=== PATIENT | female | born 2000 | race Caucasian/White ===

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

== ENCOUNTER 2018-05-15 14:21 | Inpatient (IN) | payer BC, OTHER ==
[2018-05-15] MEDS ORDERED: SODIUM CHLORIDE 0.9% 1,000 ML IV STA (16:08)
[2018-05-15] MEDS ORDERED: ACETAMINOPHEN IV (For NPO) 1,000 MG in EMPTY BAG 1 BAG IVPB ONE (16:23)
--- NOTE | 2018-05-15 16:36 | ED ---
General Adult HPI - General Chief complaint: Abdominal Pain Stated complaint: 16 weeks , poss kidney stone Time Seen by Provider: 05/15/18 16:07 Source: patient, RN notes reviewed, old records reviewed Mode of arrival: ambulatory Limitations: no limitations - History of Present Illness Initial comments: 17-year-old female , approximately 16 weeks presenting for evaluation of right flank pain and right lower quadrant abdominal pain. Patient has had symptoms for 4 days. She is currently being treated with Keflex for urinary tract infection. She is otherwise healthy. She's had some nausea and vomiting as well as subjective fever and chills at home. Denies URI symptoms. Denies upper abdominal pain. No consultations with this . No vaginal bleeding or vaginal discharge. - Related Data Home Medications Medication Instructions Recorded Confirmed Cephalexin [Keflex] 500 mg PO TID 05/15/18 05/15/18 Tvx-Qlng-Gwxse Acid 1 cap PO DAILY 05/15/18 05/15/18 [-U Capsule (formulary)] Allergies Allergy/AdvReac Type Severity Reaction Status Date / Time No Known Allergies Allergy Verified 05/15/18 17:03 Review of Systems ROS Statement: Those systems with pertinent positive or pertinent negative responses have been documented in the HPI. ROS Other: All systems not noted in ROS Statement are negative. Past Medical History Past Medical History: No Reported History History of Any Multi-Drug Resistant Organisms: None Reported Past Surgical History: No Surgical Hx Reported Past Psychological History: No Psychological Hx Reported Smoking Status: Current every day smoker Past Alcohol Use History: None Reported Past Drug Use History: None Reported General Exam Limitations: no limitations General appearance: alert, in no apparent distress Head exam: Present: atraumatic, normocephalic Eye exam: Present: normal appearance, PERRL ENT exam: Present: normal exam Neck exam: Present: normal inspection. Absent: tenderness, meningismus Respiratory exam: Present: normal lung sounds bilaterally. Absent: respiratory distress, wheezes Cardiovascular Exam: Present: normal rhythm, tachycardia GI/Abdominal exam: Present: soft, tenderness (No uterine tenderness, mild right lower quadrant tenderness to palpation). Absent: distended Extremities exam: Present: normal inspection, normal capillary refill Back exam: Present: normal inspection, CVA tenderness (R) (severe) Neurological exam: Present: alert, oriented X3 Psychiatric exam: Present: normal affect, normal mood Skin exam: Present: warm, dry, intact. Absent: cyanosis, diaphoretic Course Vital Signs 05/15/18 05/15/18 05/15/18 14:50 17:01 18:41 Temperature 98.7 F 98 F Pulse Rate 110 H 106 H 85 Respiratory 18 20 18 Rate Blood Pressure 108/72 109/58 90/44 O2 Sat by Pulse 100 99 98 Oximetry Medical Decision Making - Medical Decision Making 17-year-old female presenting with fever, right flank pain, right lower quadrant abdominal pain for the past 4 days. Patient was sent over by Dr. Brown for evaluation, concern for pyelonephritis. Patient is afebrile, mildly tachycardic on initial presentation. She has both right CVA tenderness as well as right lower quadrant abdominal tenderness. Exam consistent with pyelonephritis; however there is concern for appendicitis. Ultrasound is obtained and does show right hydronephrosis which may be secondary to , no obstructing renal calculus, small renal calculus. Patient has visualized appendix on ultrasound which is not inflamed, no signs of appendicitis. heart tones on ultrasound are 176, came process. Patient has elevated white blood cell count 13.6, hemoglobin 9.9, potassium is 3.3-6 replaced in the emergency department. Urinalysis is consistent with pyelonephritis and urinary tract infection. Greater than 160 red cells, positive nitrate, positive bacteria. Urine culture and blood culture are pending. Patient is started on ceftriaxone. Case discussed with Dr. Brown will admit. - Lab Data Result diagrams: 05/15/18 16:47 05/15/18 16:47 Lab Results 05/15/18 05/15/18 05/15/18 Range/Units 16:47 16:47 16:47 WBC 14.6 H (4.0-11.0) k/uL RBC 3.38 L (3.80-5.40) m/uL Hgb 9.9 L (11.4-16.0) gm/dL Hct 28.8 L (34.0-46.0) % MCV 85.0 (80.0-100.0) fL MCH 29.3 (25.0-35.0) pg MCHC 34.4 (31.0-37.0) g/dL RDW 13.6 (11.5-15.5) % Plt Count 280 (150-450) k/uL Neutrophils % 76 % Lymphocytes % 12 % Monocytes % 8 % Eosinophils % 1 % Basophils % 1 % Neutrophils # 11.1 H (1.3-7.7) k/uL Lymphocytes # 1.7 (1.0-4.8) k/uL Monocytes # 1.1 H (0-1.0) k/uL Eosinophils # 0.1 (0-0.7) k/uL Basophils # 0.1 (0-0.2) k/uL Sodium 134 L (137-145) mmol/L Potassium 3.3 L (3.5-5.1) mmol/L Chloride 99 (98-107) mmol/L Carbon Dioxide 25 (22-30) mmol/L Anion Gap 10 mmol/L BUN 6 L (7-17) mg/dL Creatinine 0.54 (0.52-1.04) mg/dL Est GFR (CKD-EPI)AfAm >90 (>60 ml/min/1.73 sqM) Est GFR (CKD-EPI)NonAf >90 (>60 ml/min/1.73 sqM) Glucose 90 (74-99) mg/dL Plasma Lactic Acid Tyler (0.7-2.0) mmol/L Calcium 9.0 (8.4-10.2) mg/dL Total Bilirubin 0.6 (0.2-1.3) mg/dL AST 15 (14-36) U/L ALT 27 (9-52) U/L Alkaline Phosphatase 107 (38-126) U/L Total Protein 6.2 L (6.3-8.2) g/dL Albumin 3.1 L (3.5-5.0) g/dL Amylase <30 L (30-110) U/L Lipase 38 (23-300) U/L Urine Color Yellow Urine Appearance Cloudy H (Clear) Urine pH 6.0 (5.0-8.0) Ur Specific [place] 1.007 (1.001-1.035) Urine Protein 1+ H (Negative) Urine Glucose (UA) Negative (Negative) Urine Ketones Negative (Negative) Urine Blood Trace H (Negative) Urine Nitrite Positive H (Negative) Urine Bilirubin Negative (Negative) Urine Urobilinogen <2.0 (<2.0) mg/dL Ur Leukocyte Esterase Large H (Negative) Urine RBC 19 H (0-5) /hpf Urine WBC 160 H (0-5) /hpf Urine WBC Clumps Many H (None) /hpf Ur Squamous Epith Cells <1 (0-4) /hpf Urine Bacteria Few H (None) /hpf 05/15/18 Range/Units 16:47 WBC (4.0-11.0) k/uL RBC (3.80-5.40) m/uL Hgb (11.4-16.0) gm/dL Hct (34.0-46.0) % MCV (80.0-100.0) fL MCH (25.0-35.0) pg MCHC (31.0-37.0) g/dL RDW (11.5-15.5) % Plt Count (150-450) k/uL Neutrophils % % Lymphocytes % % Monocytes % % Eosinophils % % Basophils % % Neutrophils # (1.3-7.7) k/uL Lymphocytes # (1.0-4.8) k/uL Monocytes # (0-1.0) k/uL Eosinophils # (0-0.7) k/uL Basophils # (0-0.2) k/uL Sodium (137-145) mmol/L Potassium (3.5-5.1) mmol/L Chloride (98-107) mmol/L Carbon Dioxide (22-30) mmol/L Anion Gap mmol/L BUN (7-17) mg/dL Creatinine (0.52-1.04) mg/dL Est GFR (CKD-EPI)AfAm (>60 ml/min/1.73 sqM) Est GFR (CKD-EPI)NonAf (>60 ml/min/1.73 sqM) Glucose (74-99) mg/dL Plasma Lactic Acid Tyler 1.0 (0.7-2.0) mmol/L Calcium (8.4-10.2) mg/dL Total Bilirubin (0.2-1.3) mg/dL AST (14-36) U/L ALT (9-52) U/L Alkaline Phosphatase (38-126) U/L Total Protein (6.3-8.2) g/dL Albumin (3.5-5.0) g/dL Amylase (30-110) U/L Lipase (23-300) U/L Urine Color Urine Appearance (Clear) Urine pH (5.0-8.0) Ur Specific [place] (1.001-1.035) Urine Protein (Negative) Urine Glucose (UA) (Negative) Urine Ketones (Negative) Urine Blood (Negative) Urine Nitrite (Negative) Urine Bilirubin (Negative) Urine Urobilinogen (<2.0) mg/dL Ur Leukocyte Esterase (Negative) Urine RBC (0-5) /hpf Urine WBC (0-5) /hpf Urine WBC Clumps (None) /hpf Ur Squamous Epith Cells (0-4) /hpf Urine Bacteria (None) /hpf Disposition Clinical Impression: Pyelonephritis, Pyelonephritis affecting in second trimester Disposition: ADMITTED IP TO THIS [facility] Condition: Stable Is patient prescribed a controlled substance at d/c from ED?: No Referrals: None,Stated [Primary Care Provider] - 1-2 days Decision to Admit Reason: Admit from EC Decision Date: 05/15/18 Decision Time: 18:40
[2018-05-15 17:42] LABS: ALT 27 U/L (9-52); AST 15 U/L (14-36); Albumin 3.1 g/dL (3.5-5.0); Alkaline Phosphatase 107 U/L (38-126); Amylase <30 U/L (30-110); Anion Gap 10 mmol/L; Blood Urea Nitrogen 6 mg/dL (7-17); Carbon Dioxide 25 mmol/L (22-30); Chloride 99 mmol/L (98-107); Glucose 90 mg/dL (74-99); Lipase 38 U/L (23-300); Potassium 3.3 mmol/L (3.5-5.1); Sodium 134 mmol/L (137-145); Total Bilirubin 0.6 mg/dL (0.2-1.3); Total Protein 6.2 g/dL (6.3-8.2)
[2018-05-15] MEDS ORDERED: POTASSIUM CHLORIDE 20 MEQ in WATER FOR INJECTION 1 100ML.BAG IVPB STA (18:00)
[2018-05-15 18:03] LABS: Basophils # (A) 0.1 k/uL (0-0.2); Basophils % (A) 1 %; Eosinophils # (A) 0.1 k/uL (0-0.7); Eosinophils % (A) 1 %; HCT 28.8 % (34.0-46.0); HGB 9.9 gm/dL (11.4-16.0); Lymphocytes # (A) 1.7 k/uL (1.0-4.8); Lymphocytes % (A) 12 %; MCH 29.3 pg (25.0-35.0); MCHC 34.4 g/dL (31.0-37.0); Mean Platelet Volume 6.8; Monocytes # (A) 1.1 k/uL (0-1.0); Monocytes % (A) 8 %; Neutrophils # (A) 11.1 k/uL (1.3-7.7); Neutrophils % (A) 76 %; Platelet Count 280 k/uL (150-450); RBC 3.38 m/uL (3.80-5.40); RDW 13.6 % (11.5-15.5); WBC 14.6 k/uL (4.0-11.0)
[2018-05-15 18:10] LABS: Appearance,Urine Cloudy (Clear); Bacteria,Urine Few /hpf; Bilirubin,Urine Negative (Negative); Blood,Urine Trace (Negative); Color,Urine Yellow; Glucose,Urine (UA) Negative (Negative); Ketones,Urine Negative (Negative); Leukocyte Esterase,Urine Large (Negative); Nitrite,Urine Positive (Negative); Protein,Urine 1+ (Negative); RBC,Urine 19 /hpf (0-5); Specific Gravity,Urine 1.007 (1.001-1.035); Squamous Epithelial Cell,Urine <1 /hpf (0-4); Urobilinogen,Urine <2.0 mg/dL (<2.0); WBC,Urine 160 /hpf (0-5)
--- NOTE | 2018-05-15 18:51 | US ---
EXAMINATION TYPE: US abd limited kidneys/bladder DATE OF EXAM: 05/15/2018 COMPARISON: NONE CLINICAL HISTORY: Pain. RLQ pain x 2 days, Rt flank pain x 4 days, constipation x 1 week, fever, head ache and cough, 16 weeks ; UTI x 2 since March; assess kidneys and gallbladder per EC physi ronit EXAM MEASUREMENTS: Liver Length: 17.0 cm Gallbladder Wall: 0.2 cm CBD: 0.2 cm Right Kidney: 10.8 x 6.1 x 4.4 cm Left Kidney: 10.9 x 5.1 x 4.3 cm Post Void Volume: 5.3ml Pancreas: wnl Liver: wnl Gallbladder: wnl CBD: wnl Right Kidney: mild hydronephrosis is noted post void; mid pole hyperechoic very small calcification seen = 0.2 x 0.3 x 0.2cm Left Kidney: wnl Bladder: wnl, see Appendix US Bilateral Jets Seen no Normal Post Void Residual (normal less than 50ml) yes IMPRESSION: There is mild right-sided hydronephrosis. It is not clear if this is hydronephrosis of pr egnancy. Small right renal calculus. No gallstones or dilated ducts. Urinary bladder was not well michael luated.
--- NOTE | 2018-05-15 18:53 | US ---
EXAMINATION TYPE: US OB limited DATE OF EXAM: 05/15/2018 COMPARISON: NONE CLINICAL HISTORY: Pain. RLQ pain x 2 days, Rt flank pain x 4 days, constipation x 1 week, fever, head ache, cough; UTI x 2 since March EXAM PERFORMED: Transabdominal (TA) for Placenta and heart rate per EC physician. GESTATIONAL AGE / DATING Physician Established: (16 weeks/3 days) EDC: Dates by Current Scan: No growth performed on today?s study per ordering EC physician SURVEY PLACENTA: Anterior PREVIA: No Previa Ultrasound evidence of abruption? No CIPRIANO: 13.7 cm Normal Ultrasound evidence of premature rupture of membranes? no CERVICAL LENGTH (transabdominal: norm > 3.0cm): 3.03 cm; small amount of free fluid is seen in cul d e sac = 1.7 x 4.8 x 1.0 x 0.523 = 4.3ml and wnl. Ultrasound evidence of cervical incompetence? no PRESENTATION: Vertex LIE: Longitudinal HEART RATE: 176 bpm RHYTHM: Normal Single, live IUP, [id number]; no evidence of placental abruption. IMPRESSION: No complicating process seen. Tiny amount of free fluid in the cul-de-sac of uncertain s ignificance. Normal amniotic fluid volume.
--- NOTE | 2018-05-15 18:54 | US ---
EXAMINATION TYPE: US abdomen APPY DATE OF EXAM: 05/15/2018 COMPARISON: NONE CLINICAL HISTORY: pain. RLQ pain x 2 days, RT flank pain x 4 days, 16 weeks , constipation x 1 week, fever, headache, and cough, UTI since March APPENDIX AP Diameter (normal < 6mm): 4.1 mm Measured outer wall to outer wall. Is the appendix seen in its entirety from the proximal cecum to distal end: no Is the appendix compressible: yes Does the appendix wall appear hypervascular: no Is an appendicolith present: no Is there inflammatory changes or free fluid present: no Bladder was assessed and reported in ABD/Renal and Bladder US, then patient was asked to void to asse ss appendix area. IMPRESSION: No sign of appendicitis. No free fluid seen in the right lower quadrant.
[2018-05-15] MEDS ORDERED: NALOXONE 0.4 MG/ML 1 ML VIAL IV PRN (19:04)
[2018-05-15] MEDS ORDERED: 0.9% NACL WITH KCL 20 MEQ/L 1,000 ML IV SCH (20:00)
[2018-05-15 20:36] VITALS: BMI 15.7
[2018-05-15] MEDS: LACTATED RINGERS 1,000 ML IV SCH (21:51)
[2018-05-16] MEDS: Acetaminophen-Codeine 300-30mg TAB PO PRN ×3 (02:34→18:23)
[2018-05-16] MEDS: LACTATED RINGERS 1,000 ML IV SCH ×3 (05:13→20:51)
[2018-05-16 07:04] LABS: Basophils % (A) 0 %; Eosinophils # (A) 0.1 k/uL (0-0.7); Eosinophils % (A) 1 %; HCT 25.6 % (34.0-46.0); Hypochromasia Slight; Lymphocytes # (A) 1.7 k/uL (1.0-4.8); Lymphocytes % (A) 17 %; MCH 29.8 pg (25.0-35.0); Mean Platelet Volume 6.4; Monocytes # (A) 0.5 k/uL (0-1.0); Monocytes % (A) 5 %; Neutrophils # (A) 7.5 k/uL (1.3-7.7); Neutrophils % (A) 74 %; Platelet Count 257 k/uL (150-450); RBC 2.83 m/uL (3.80-5.40); WBC 10.1 k/uL (4.0-11.0)
[2018-05-16 07:18] LABS: HGB 8.4 gm/dL (11.4-16.0); MCV 90.4 fL (80.0-100.0)
--- NOTE | 2018-05-16 08:53 | P.HPOB ---
History of Present Illness H&P Date: 05/16/18 Chief Complaint: Right flank pain, fever This is a 17-year-old white female 1 para 0 EDC 10/27/2018 at 16-3/7 weeks' gestation. Patient presented to the office today with a complaint of fever at home of 103, and severe right flank pain that has increased in the past 3 days. She was noted to have an uncomplicated urinary tract infection 3 days ago, and started on Keflex 500 mg 3 times a day. Patient states her pain has been increasing over the weekend. She denies nausea vomiting. No shakes or chills. No hematuria. No movement to date. Past medical history is essentially negative. Past surgical history is negative. Social history patient is a tobacco smoker for 1 year. She lives at home with her mom. She denies alcohol or drug use. She is unemployed. ALLERGIES none known. Current medications Keflex 500 mg 3 times a day, vitamin daily. Obstetric history blood type A+, rubella status nonimmune. VDRL testing, hepatitis B surface antigen, HIV testing, gonorrhea and chlamydia cultures all negative. Thyroid function studies within normal limits. Urine culture as noted growing group B streptococcus. On exam this is a pleasant young female, 5 foot 5 inches, 92 pounds, initial pulse 110, pulse this morning 90. Blood pressure 108/50. The chest is clear in all liang. Cardiac exam reveals regular rate and rhythm. Abdomen is soft, mild tenderness in the right lower quadrant. CVA tenderness yesterday in the office was 10 out of 10, 2 out of 10 this morning. heart rate 150. Extremities negative for edema. Admitting labs include UA with bacteria, 160 white cells. Hemoglobin 9.9, WBC is 14.6. Morning CBC pending. Impression: 16-4/7 weeks intrauterine , pyelonephritis. Ultrasound of the kidneys also showing a small calculus in the right ureter. Great improvement noted this morning after ceftriaxone 1 g, and ofirmev intravenously. Plan: Patient may shower. Regular diet. We will continue hospitalization for an additional 24 hours to receive another gram of second gram of ceftriaxone. Continue IV hydration. Likely discharge home tomorrow. Review of Systems Constitutional: Reports as per HPI Past Medical History Past Medical History: No Reported History History of Any Multi-Drug Resistant Organisms: None Reported Past Surgical History: No Surgical Hx Reported Past Anesthesia/Blood Transfusion Reactions: No Reported Reaction Past Psychological History: No Psychological Hx Reported Smoking Status: Current every day smoker Past Alcohol Use History: None Reported Past Drug Use History: None Reported - Past Family History Mother Family Medical History: No Reported History Medications and Allergies Home Medications Medication Instructions Recorded Confirmed Type Cephalexin [Keflex] 500 mg PO TID 05/15/18 05/15/18 History Khp-Jwom-Ewaby Acid 1 cap PO DAILY 05/15/18 05/15/18 History [-U Capsule (formulary)] Allergies Allergy/AdvReac Type Severity Reaction Status Date / Time No Known Allergies Allergy Verified 05/15/18 17:03 Exam Vital Signs Temp Pulse Pulse Resp BP BP Pulse Ox 05/16/18 05:17 98.1 F 82 16 82/40 98 05/16/18 00:30 98.8 F 80 16 89/42 98 05/15/18 20:27 96.7 F L 83 16 101/52 05/15/18 20:12 97.8 F 86 18 98/57 98 05/15/18 18:41 98 F 85 18 90/44 98 05/15/18 17:01 106 H 20 109/58 99 05/15/18 14:50 98.7 F 110 H 18 108/72 100 Intake and Output 05/15/18 05/16/18 05/16/18 22:59 06:59 14:59 Output Total 600 Balance -600 Output: Urine 600 Other: # Voids 1 See dictation under HPI please Results Result Diagrams: 05/16/18 06:45 05/15/18 16:47 Abnormal Lab Results - Last 24 Hours (Table) 05/15/18 05/15/18 05/15/18 Range/Units 16:47 16:47 16:47 WBC 14.6 H (4.0-11.0) k/uL RBC 3.38 L (3.80-5.40) m/uL Hgb 9.9 L (11.4-16.0) gm/dL Hct 28.8 L (34.0-46.0) % Neutrophils # 11.1 H (1.3-7.7) k/uL Monocytes # 1.1 H (0-1.0) k/uL Sodium 134 L (137-145) mmol/L Potassium 3.3 L (3.5-5.1) mmol/L BUN 6 L (7-17) mg/dL Total Protein 6.2 L (6.3-8.2) g/dL Albumin 3.1 L (3.5-5.0) g/dL Amylase <30 L (30-110) U/L Urine Appearance Cloudy H (Clear) Urine Protein 1+ H (Negative) Urine Blood Trace H (Negative) Urine Nitrite Positive H (Negative) Ur Leukocyte Esterase Large H (Negative) Urine RBC 19 H (0-5) /hpf Urine WBC 160 H (0-5) /hpf Urine WBC Clumps Many H (None) /hpf Urine Bacteria Few H (None) /hpf 05/16/18 Range/Units 06:45 WBC (4.0-11.0) k/uL RBC 2.83 L (3.80-5.40) m/uL Hgb 8.4 L D (11.4-16.0) gm/dL Hct 25.6 L (34.0-46.0) % Neutrophils # (1.3-7.7) k/uL Monocytes # (0-1.0) k/uL Sodium (137-145) mmol/L Potassium (3.5-5.1) mmol/L BUN (7-17) mg/dL Total Protein (6.3-8.2) g/dL Albumin (3.5-5.0) g/dL Amylase (30-110) U/L Urine Appearance (Clear) Urine Protein (Negative) Urine Blood (Negative) Urine Nitrite (Negative) Ur Leukocyte Esterase (Negative) Urine RBC (0-5) /hpf Urine WBC (0-5) /hpf Urine WBC Clumps (None) /hpf Urine Bacteria (None) /hpf Microbiology - Last 24 Hours (Table) 05/15/18 16:47 Urine Culture - Preliminary Urine,Voided Assessment and Plan Assessment: 16-4/7 weeks intrauterine , right pyelonephritis with complicating small renal calculus. Improvement noted with antibiotics and ofirmev as well as hydration. Plan: Continue hospitalization for increased fluid hydration and another dose of Ceftriaxone. If clinical improvement continues, likely discharge home tomorrow. Time with Patient: Greater than 30
[2018-05-17] MEDS: Acetaminophen-Codeine 300-30mg TAB PO PRN (02:14)
[2018-05-17] MEDS ORDERED: ACETAMINOPHEN TAB 500 MG TAB PO PRN (07:22)
--- NOTE | 2018-05-17 07:22 | P.DS ---
Providers Date of admission: 05/15/18 19:15 Expected date of discharge: 05/17/18 Attending physician: Karime Brown Primary care physician: Stated None Hospital Course: This is a 17-year-old white female 1 para 0 EDC 09/26/2018 at 16-5/7 weeks' gestation. Patient presented 2 days ago from the office to the emergency room with right pyelonephritis. She had an admitting white count 14.6 , stated she had a fever of 103 at home. She was known to have a urinary tract infection and started on Keflex 3 days prior, however stated the pain increased in intensity. Please see admitting H&P for details. Patient was started on Rocephin 1 g to 24 hours she rapidly defervesced. Repeat white count 10.1. This morning patient states her pain has resolved. It is notable that an ultrasound of the kidneys also revealed a small stone in the right ureter. Patient this morning is without complaints. She is being discharged home in good condition. She will follow-up in the office with me in 1 week. She will receive her last dose of Rocephin prior to discharge home today. Blood cultures have been negative, urine cultures showing gram-negative bacilli. She will continue taking her Keflex 500 mg twice daily for an additional week. Call with any fevers shakes or chills, recurrence of right flank pain, or indeed with any concerns. Patient Condition at Discharge: Good Plan - Discharge Summary Discharge Rx Participant: No New Discharge Prescriptions: No Action Hve-Gvei-Blpgw Acid [-U Capsule (formulary)] 1 cap PO DAILY Cephalexin [Keflex] 500 mg PO TID Discharge Medication List Cephalexin [Keflex] 500 mg PO TID 05/15/18 [History] Cjd-Ougt-Lcdlm Acid [-U Capsule (formulary)] 1 cap PO DAILY [History] Follow up Appointment(s)/Referral(s): None,Stated [Primary Care Provider] - 1 Week
[2018-05-17] MEDS: LACTATED RINGERS 1,000 ML IV SCH ×2 (09:46→14:03)
[2018-05-17 09:53] VITALS: BP 86/47; PULSE 71; RESP 16; TEMP 97.7
== END 2018-05-17 15:53 | disposition home or self-care (01) | DRG 832 ==
LOC: EC 14:21 → 4FBP 19:15
PROVIDERS: ADMIT Obstetrics & Gynecology; ATTEND Obstetrics & Gynecology
DX: O23.02 Infections of kidney in pregnancy, second trimester (principal); N13.6 Pyonephrosis; O99.89 Other specified diseases and conditions complicating pregnancy, childbirth and the puerperium; O99.332 Smoking (tobacco) complicating pregnancy, second trimester; F17.200 Nicotine dependence, unspecified, uncomplicated; Z3A.16 16 weeks gestation of pregnancy
CPT/HCPCS: 36415; 76705; 76770; 76815; 80053; 81001; 82150; 83605; 83690; 85025; 87040; 87077; 87086; 87186; 96361; 96365; 96366; 96367; 96368; 99285

== ENCOUNTER 2018-11-01 05:53 | Inpatient (IN) | payer OTHER ==
[2018-11-01] MEDS ORDERED: TERBUTALINE 1 MG/ML VIAL SQ PRN (06:15)
[2018-11-01] MEDS ORDERED: METHYLERGONOVINE 0.2 MG/ML 1 ML AMP IM PRN (06:15)
[2018-11-01] MEDS ORDERED: CARBOPROST TROMETHAMINE 250 MCG/ML 1 ML AMP IM PRN (06:15)
[2018-11-01] MEDS ORDERED: OXYTOCIN 10 UNIT/ML 1 ML VIAL IM PRN (06:15)
[2018-11-01] MEDS ORDERED: LIDOCAINE 0.5% (PF) 5 MG/ML (50 ML SDV) SQ PRN (06:15)
[2018-11-01] MEDS ORDERED: OXYTOCIN 30 UNITS/500 ML NS 30 UNIT in SALINE 1 500ML.BAG IV SCH (06:15)
[2018-11-01 06:25] VITALS: BMI 21.6
[2018-11-01] MEDS: LACTATED RINGERS 1,000 ML IV SCH ×2 (06:27→10:48)
[2018-11-01] MEDS ORDERED: PENICILLIN G POTASSIUM 5,000,000 UNIT in DEXTROSE 5% IN WATER 100 ML IVPB ONE ×2 (06:30)
[2018-11-01 06:39] LABS: Basophils % (A) 0 %; Eosinophils # (A) 0.1 k/uL (0-0.7); Eosinophils % (A) 1 %; HCT 34.9 % (34.0-46.0); HGB 11.4 gm/dL (11.4-16.0); Lymphocytes # (A) 2.3 k/uL (1.0-4.8); Lymphocytes % (A) 26 %; MCHC 32.6 g/dL (31.0-37.0); MCV 85.7 fL (80.0-100.0); Mean Platelet Volume 7.5; Monocytes # (A) 0.5 k/uL (0-1.0); Monocytes % (A) 5 %; Neutrophils # (A) 5.9 k/uL (1.3-7.7); Neutrophils % (A) 66 %; Platelet Count 254 k/uL (150-450); RBC 4.07 m/uL (3.80-5.40); RDW 14.4 % (11.5-15.5); WBC 8.9 k/uL (4.0-11.0)
--- NOTE | 2018-11-01 07:38 | P.HPOB ---
History of Present Illness H&P Date: 11/01/18 This is a 17-year-old white female 1 para 0 EDC 10/27/2018 at 40-5/7 weeks' gestation. Patient presents this morning for induction for postdates . Fetus is been active throughout the . She denies vaginal bleeding or fluid leakage. Social history patient is single, father of the baby is involved. She is a tobacco smoker, one half pack per day. She denies alcohol or drug use. Past surgical history is negative. Past medical history is negative. ALLERGIES none known. Family history is negative. Obstetric history is significant for positive group B strep. Blood type is A+, rubella status nonimmune. Gonorrhea and chlamydia cultures, urine culture, VDRL testing all negative. HIV testing, hepatitis B surface antigen negative. One- hour Glucola 95. On exam this is a pleasant young female, 5 foot 7 inches, 138 pounds, blood pressure 116/61. General physical exam is within normal limits. heart rate is in the 140s with frequent accelerations consistent with reactive NST. Uterine contractions are mild and sporadic. Cervix is 3 cm dilated, 90% eff aced, -1 station, vertex presentation. Artificial amniorrhexis reveals clear fluid. Impression: 40-5/7 weeks intrauterine , here for induction of labor, all signs reassuring, positive group B strep cultures, first dose of penicillin Cruz infused. Plan: Continue penicillin G per hospital protocol. Continue close maternal and surveillance. Begin oxytocin per hospital protocol. Anticipate normal spontaneous vaginal delivery. Review of Systems Constitutional: Reports as per HPI Past Medical History Past Medical History: No Reported History History of Any Multi-Drug Resistant Organisms: None Reported Past Surgical History: No Surgical Hx Reported Past Anesthesia/Blood Transfusion Reactions: No Reported Reaction Past Psychological History: No Psychological Hx Reported Smoking Status: Former smoker Past Alcohol Use History: None Reported Past Drug Use History: None Reported Additional Drug Use History / Comment(s): vap use. - Past Family History Mother Family Medical History: No Reported History Medications and Allergies Home Medications Medication Instructions Recorded Confirmed Type Gvp-Ewko-Elyrm Acid 1 cap PO DAILY 05/15/18 11/01/18 History [-U Capsule (formulary)] Allergies Allergy/AdvReac Type Severity Reaction Status Date / Time No Known Allergies Allergy Verified 11/01/18 06:08 Exam Vital Signs Temp Pulse Resp BP Pulse Ox 11/01/18 06:02 96.7 F L 73 18 116/61 99 Intake and Output 10/31/18 11/01/18 11/01/18 22:59 06:59 14:59 Other: Weight 62.596 kg See dictation under HPI. Results Result Diagrams: 11/01/18 06:10 Assessment and Plan Assessment: 40-5/7 weeks intrauterine , here for induction of labor for postdates, positive group B strep cultures noted. Plan: Penicillin G per hospital protocol. Oxytocin per hospital protocol. Continue close maternal and surveillance. Anticipate normal spontaneous vaginal delivery. Time with Patient: Less than 30
[2018-11-01] MEDS ORDERED: PENICILLIN G POTASSIUM 2,500,000 UNIT in DEXTROSE 5% IN WATER 100 ML IVPB SCH ×2 (10:30)
[2018-11-01] MEDS ORDERED: SODIUM CHLORIDE 0.9% 100 ML BAG ONE (10:49)
[2018-11-01] MEDS ORDERED: fentaNYL (PF) 50 MCG/ML 5 ML AMP ONE (10:49)
[2018-11-01] MEDS ORDERED: ROPIVACAINE 5MG/ML 20ML VIAL ONE (10:49)
[2018-11-01] MEDS ORDERED: SIMETHICONE 80 MG CHEWABLE PO PRN (12:42)
[2018-11-01] MEDS ORDERED: diphenhydrAMINE 50 MG/ML 1 ML VIAL IVP PRN ×2 (12:42)
[2018-11-01] MEDS ORDERED: diphenhydrAMINE ELIXIR 25 MG/10 ML CUP PO PRN (12:42)
[2018-11-01] MEDS ORDERED: LANOLIN CREAM 5 GM TUBE TOPICAL PRN (12:42)
[2018-11-01] MEDS ORDERED: diphenhydrAMINE 50 MG CAP PO PRN (12:42)
[2018-11-01] MEDS ORDERED: ACETAMINOPHEN TAB 325 MG TAB PO PRN (12:42)
[2018-11-01] MEDS ORDERED: ZOLPIDEM 5 MG TAB PO PRN (12:42)
[2018-11-01] MEDS ORDERED: diphenhydrAMINE 25 MG CAP PO PRN (12:42)
[2018-11-01] MEDS ORDERED: WITCH HAZEL 1 EACH MED..PAD TOPICAL PRN (12:42)
[2018-11-01] MEDS ORDERED: HYDROCORTISONE 2.5% RECTAL CREAM 30 GM TUBE RECTAL PRN (12:42)
[2018-11-01] MEDS ORDERED: BENZOCAINE/MENTHOL SPRAY 1 GM/SPRAY AEROSOL TOPICAL PRN (12:42)
--- NOTE | 2018-11-01 12:42 | P.PROBDLV ---
Vaginal Delivery Note - . Vaginal Delivery Note: This is a 17-year-old white female 1 para 0 EDC 10/27/2018 at 40-5/7 weeks' gestation. Patient presented for induction for postdates with favorable cervix. Artificial amniorrhexis revealed clear fluid. Oxytocin was started and titrated per hospital protocol. Patient requested epidural and this was placed without difficulty. She progressed well through the first stage of labor and was judged to be completely dilated at 1153 hours. Patient does have a history of positive group B strep, and has received penicillin G 2 doses. With excellent maternal expulsive efforts, ultimately station was noted to progress. Perineal body was prepped and draped in usual sterile fashion. There were decelerations noted in the second stage, however oxygen was administered and excellent szpm-ab-xyce variability was noted. Infant delivered occiput anterior and restituted accordingly. There was no nuchal cord noted. The left or anterior shoulder was gently delivered from underneath the pubic symphysis at which time the oropharynx, nasopharynx, and external nares were all bulb suctioned on the perineal body. Patient was officially delivered of a liveborn male at 1222 hours. Umbilical cord was doubly clamped and ligated, he was handed to waiting nurses for evaluation where scores of 9 and 9 at one and 5 minutes respectively were given. The placenta delivered spontaneously, it was inspected and noted to be intact with trivascular cord at 1224 hours. Uterus is then massaged. Inspection of the cervix, vagina, perineum, periurethral, and perirectal areas revealed a left labial second-degree laceration. This was repaired in the usual fashion using 3-0 Vicryl in a running locking stitch. Infant weighed 7 lbs. 8 oz. or 3425 g. Fundus is firm and in the midline, symmetric and 18 week size upon completion of delivery. Patient is requesting circumcision for her infant son.
[2018-11-01] MEDS ORDERED: OXYTOCIN 20 UNITS/1000 ML NS 1,000 ML IV SCH (12:45)
[2018-11-01 12:48] VITALS: RESP 16
[2018-11-01] MEDS: IBUPROFEN 600 MG TAB PO PRN (23:11)
[2018-11-02] MEDS: SENNOSIDES-DOCUSATE SODIUM 1 EACH TAB PO SCH ×2 (03:30→08:24)
[2018-11-02] MEDS: LACTATED RINGERS 1,000 ML IV SCH (03:32)
--- NOTE | 2018-11-02 07:00 | P.DS ---
Providers Date of admission: 11/01/18 05:53 Expected date of discharge: 11/02/18 Attending physician: Karime Brown Primary care physician: Karime Brown [facility] Course: This is a 17-year-old white female 1 para 0 EDC 10/27/2018 at 40-5/7 weeks' gestation. Patient presented for induction for postdates , rubella status nonimmune, blood type A+, group B strep cultures positive. Please see my dictated history and physical for details. Artificial amniorrhexis revealed clear fluid. Epidural was placed per her request. Oxytocin was started and titrated per hospital protocol. She went on to deliver a liveborn male vaginally, with scores of 9 and 9 at one and 5 minutes respectively. Infant weighed 7 lbs. 8 oz. or 34-5 g. There was a left labial laceration easily repaired, estimated blood loss 250 mL's. Please see my dictated delivery note for details. This morning the patient is doing well. She is voiding, ambulating, passing flatus without difficulty. Vital signs are stable and she is afebrile. Fundus is firm and in the midline, symmetric and 18 week size. Extremities are negative for edema. Circumcision has been performed on her , he is doing well and is judged to be in good condition for discharge home. I've discussed with the patient options for contraception, we will discuss this further in the office. I have reminded her no intercourse, tampons or douching. She will use [id number] Advil or Aleve as needed for pain. I've given her prescription for a double electric breast pump. She will continue taking her vitamins daily. She will call with any fevers shakes or chills, foul smelling or copious lochia, with the passage of large blood clots, with any pain not alleviated by [id number] products, or indeed with any concerns. Patient Condition at Discharge: Good Plan - Discharge Summary Discharge Rx Participant: No New Discharge Prescriptions: No Action Fhz-Pydt-Kutfu Acid [-U Capsule (formulary)] 1 cap PO DAILY Discharge Medication List Dwy-Mlaq-Sdltu Acid [-U Capsule (formulary)] 1 cap PO DAILY 05/15/18 [History] Follow up Appointment(s)/Referral(s): Karime Brown MD [Primary Care Provider] - 6 Weeks Discharge Disposition: HOME SELF-CARE
[2018-11-02] MEDS: IBUPROFEN 600 MG TAB PO PRN (08:24)
[2018-11-02 10:03] VITALS: BP 99/56; PULSE 78; TEMP 98.1
== END 2018-11-02 13:17 | disposition home or self-care (01) | DRG 807 ==
LOC: 4FBP 05:53
PROVIDERS: ADMIT Obstetrics & Gynecology; ATTEND Obstetrics & Gynecology
PROC: 0KQM0ZZ Repair Perineum Muscle, Open Approach (ICD-10-PCS; principal; 2018-11-01)
PROC: 10E0XZZ Delivery of Products of Conception, External Approach (ICD-10-PCS; 2018-11-01)
PROC: 3E033VJ Introduction of Other Hormone into Peripheral Vein, Percutaneous Approach (ICD-10-PCS; 2018-11-01)
PROC: 10907ZC Drainage of Amniotic Fluid, Therapeutic from Products of Conception, Via Natural or Artificial Opening (ICD-10-PCS; 2018-11-01)
PROC: 00HU33Z Insertion of Infusion Device into Spinal Canal, Percutaneous Approach (ICD-10-PCS; 2018-11-01)
PROC: 3E0R3BZ Introduction of Anesthetic Agent into Spinal Canal, Percutaneous Approach (ICD-10-PCS; 2018-11-01)
DX: O48.0 Post-term pregnancy (principal); Z37.0 Single live birth; O99.334 Smoking (tobacco) complicating childbirth; F17.210 Nicotine dependence, cigarettes, uncomplicated; F17.290 Nicotine dependence, other tobacco product, uncomplicated; O70.1 Second degree perineal laceration during delivery; Z3A.40 40 weeks gestation of pregnancy; Z79.899 Other long term (current) drug therapy; Z86.19 Personal history of other infectious and parasitic diseases
CPT/HCPCS: 85025; 86850; 86900; 86901

== ENCOUNTER 2019-06-21 13:51 | Emergency (ER) | payer OTHER ==
[2019-06-21 13:59] VITALS: BP 105/70; PULSE 74; RESP 18; TEMP 98.4
--- NOTE | 2019-06-21 14:24 | ED ---
General Adult HPI - General Chief complaint: ENT Stated complaint: sore throat/right side neck numbness Time Seen by Provider: 06/21/19 14:01 Source: patient, RN notes reviewed Mode of arrival: ambulatory Limitations: no limitations - History of Present Illness Initial comments: 18-year-old female with a past medical history of migraine presents to the emergency department for a chief complaint of sore throat. Patient states she has had a sore throat for the past few days. States it is painful to swallow however denies any difficulty swallowing solids or liquids. Denies fevers or chills. Patient does state the right side of her anterior neck is painful. Patient denies cough or congestion.Patient has no other complaints at this time including shortness of breath, chest pain, abdominal pain, nausea or vomiting, headache, or visual changes. - Related Data Home Medications Medication Instructions Recorded Confirmed Tpp-Rfmo-Rekaa Acid 1 cap PO DAILY 05/15/18 11/01/18 [-U Capsule (formulary)] Allergies Allergy/AdvReac Type Severity Reaction Status Date / Time No Known Allergies Allergy Verified 06/21/19 13:59 Review of Systems ROS Statement: Those systems with pertinent positive or pertinent negative responses have been documented in the HPI. ROS Other: All systems not noted in ROS Statement are negative. Past Medical History Past Medical History: No Reported History Additional Past Medical History / Comment(s): migraines History of Any Multi-Drug Resistant Organisms: None Reported Past Surgical History: No Surgical Hx Reported Past Anesthesia/Blood Transfusion Reactions: No Reported Reaction Past Psychological History: No Psychological Hx Reported Smoking Status: Former smoker Past Alcohol Use History: None Reported Past Drug Use History: None Reported - Past Family History Mother Family Medical History: No Reported History General Exam Limitations: no limitations General appearance: alert, in no apparent distress Head exam: Present: atraumatic, normocephalic, normal inspection Eye exam: Present: normal appearance, PERRL, EOMI. Absent: scleral icterus, conjunctival injection, periorbital swelling ENT exam: Present: normal exam, mucous membranes moist, TM's normal bilaterally, normal external ear exam. Absent: normal oropharynx (Oropharynx minimally erythematous however uvula is midline. No tonsillar exudates noted bilaterally. Tonsillar pillars are symmetric.) Neck exam: Present: normal inspection, full ROM. Absent: tenderness, meningismus, lymphadenopathy Respiratory exam: Present: normal lung sounds bilaterally. Absent: respiratory distress, wheezes, rales, rhonchi, stridor Cardiovascular Exam: Present: regular rate, normal rhythm, normal heart sounds. Absent: systolic murmur, diastolic murmur, rubs, gallop, clicks GI/Abdominal exam: Present: normal bowel sounds Course Vital Signs 06/21/19 13:56 Temperature 98.4 F Pulse Rate 74 Respiratory 18 Rate Blood Pressure 105/70 O2 Sat by Pulse 100 Oximetry Medical Decision Making - Medical Decision Making 18-year-old otherwise healthy female presents for sore throat 3 days. Physical exam is unremarkable. There is minimal erythema however no tonsillar exudates, uvula midline. No evidence for peritonsillar abscess. No neck stiffness. Patient does have bilateral submandibular lymphadenopathy that is causing her discomfort. Otherwise no neck pain or swelling. At this time strep was negative. She likely is a viral pharyngitis. Culture will be sent. Discussed following up with primary care in 1-2 days. Discussed returning here if she has any worsening symptoms. - Lab Data Lab Results 06/21/19 Range/Units 14:00 Group A Strep Rapid Negative (Negative) Disposition Clinical Impression: Pharyngitis Disposition: HOME SELF-CARE Condition: Good Instructions (If sedation given, give patient instructions): Pharyngitis (ED) Additional Instructions: Please try hot liquids for comfort. You may take Motrin and Tylenol for pain. Follow-up with primary care in 1-2 days. See your doctor to make sure lymph nodes go back to normal after your sore throat is gone. Return for any worsening symptoms such as difficulty swallowing. Is patient prescribed a controlled substance at d/c from ED?: No Referrals: Myron Cruz MD [REFERRING] - 1-2 days Time of Disposition: 14:35
== END 2019-06-21 14:50 | disposition home or self-care (01) ==
LOC: EC 13:51
DX: J02.9 Acute pharyngitis, unspecified (principal); Z87.891 Personal history of nicotine dependence
CPT/HCPCS: 87081; 87430; 99284

== ENCOUNTER 2019-08-05 12:54 | Emergency (ER) | payer OTHER ==
[2019-08-05 12:59] VITALS: BP 117/74; PULSE 90; RESP 18; TEMP 97.8
--- NOTE | 2019-08-05 13:31 | ED ---
Chest Pain HPI - General Chief Complaint: Chest Pain Stated Complaint: chest pain/left arm numbness Time Seen by Provider: 08/05/19 13:09 Source: patient Mode of arrival: ambulatory Limitations: no limitations - History of Present Illness Initial Comments: Patient is a 18-year-old female with history of anxiety presenting to the emergency department with a chief complaint of chest pain and left arm numbness. 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 States as she was driving home last night from her job, she developed midsternal chest pain without any radiation. States he feels like pressure in her chest. Denies any cough or shortness of breath. Denies any blood diaphoretic episodes, headaches, nausea or vomiting or diarrhea. Patient also reports left upper extremity numbness for the past 4-5 days. Patient reports a "funny feeling". Denies any alleviating or aggravating factors. Denies taking medication to alleviate the symptoms. Denies any prior trauma to the region. Denies any skin discoloration or weakness. - Related Data Home Medications Medication Instructions Recorded Confirmed No Known Home Medications 08/05/19 08/05/19 Allergies Allergy/AdvReac Type Severity Reaction Status Date / Time No Known Allergies Allergy Verified 08/05/19 13:54 Review of Systems ROS Statement: Those systems with pertinent positive or pertinent negative responses have been documented in the HPI. ROS Other: All systems not noted in ROS Statement are negative. EKG Findings - EKG Comments: EKG Findings:: Sinus rhythm with no ST changes. Chart review 61, MI 160, QRS 80, QTC 386. Past Medical History Past Medical History: No Reported History Additional Past Medical History / Comment(s): migraines History of Any Multi-Drug Resistant Organisms: None Reported Past Surgical History: No Surgical Hx Reported Past Anesthesia/Blood Transfusion Reactions: No Reported Reaction Past Psychological History: No Psychological Hx Reported Smoking Status: Former smoker Past Alcohol Use History: None Reported Past Drug Use History: None Reported - Past Family History Mother Family Medical History: No Reported History General Exam Limitations: no limitations General appearance: alert, anxious Head exam: Present: atraumatic, normocephalic, normal inspection Eye exam: Present: normal appearance, PERRL, EOMI Pupils: Present: normal accommodation ENT exam: Present: normal exam, normal oropharynx, mucous membranes moist, TM's normal bilaterally, normal external ear exam Neck exam: Present: normal inspection, full ROM Respiratory exam: Present: normal lung sounds bilaterally Cardiovascular Exam: Present: regular rate, normal rhythm, normal heart sounds Extremities exam: Present: normal inspection, full ROM, normal capillary refill, other (+2 ulnar and radial pulses bilaterally. +2 dorsalis pedis obstructive he has bilaterally. Strength 5/5 in bilateral upper extremities with flexion and extension. Patient has sensation to pain and pressure in the left upper extremity.). Absent: tenderness Back exam: Present: normal inspection, full ROM Neurological exam: Present: alert, oriented X3, CN II-XII intact, normal gait, reflexes normal. Absent: abnormal gait, motor sensory deficit Psychiatric exam: Present: normal affect, anxious Skin exam: Present: warm, dry, intact, normal color Course Vital Signs 08/05/19 12:56 Temperature 97.8 F Pulse Rate 90 Respiratory 18 Rate Blood Pressure 117/74 O2 Sat by Pulse 100 Oximetry Chest Pain MDM - Differential Diagnosis Panic Disorder/Anxiety - MDM Patient is a 18-year-old female presenting to emergency Department with a chief complaint of left arm numbness and chest pain. Physical examination patient appears to nonreproducible chest pain that feels like pressure in the midsternal area. She doesn't history of anxiety and states this feels somewhat like her typical anxiety symptoms. Patient was offered anxiolytics but he declined. No diaphoretic episodes nausea vomiting headaches or visual changes. EKG shows normal sinus rhythm with no ST changes. Chest x-ray is unremarkable. Neurological examination is unremarkable. Patient has strength 5 out of 5 in bilateral upper extremities. She does have sensation to pain and pressure in the left upper extremity. Patient appears to have paresthesias rather than true numbness in the left upper extremity. No traumatic injury. Patient advised to follow with primary care. Return parameters thoroughly discussed the patient was understanding and agreeable. Case discussed with physician. Disposition Clinical Impression: Atypical chest pain, Arm paresthesia, left Disposition: HOME SELF-CARE Condition: Stable Instructions (If sedation given, give patient instructions): Chest Pain (ED) Additional Instructions: Follow up with your primary care. Return to emergency department if symptoms worsen. Is patient prescribed a controlled substance at d/c from ED?: No Referrals: None,Stated [Primary Care Provider] - 1-2 days Time of Disposition: 14:10
--- NOTE | 2019-08-05 13:45 | XR ---
EXAMINATION TYPE: XR chest 2V DATE OF EXAM ORDERED: 08/05/2019 HISTORY: chest pain. REFERENCE: None. FINDINGS: The lungs are clear. Pleural spaces are clear. Heart size is normal. IMPRESSION: NORMAL CHEST.
== END 2019-08-05 14:22 | disposition home or self-care (01) ==
LOC: EC 12:54
DX: R07.89 Other chest pain (principal); R20.2 Paresthesia of skin; R20.0 Anesthesia of skin; Z87.891 Personal history of nicotine dependence
CPT/HCPCS: 71046; 99285

== ENCOUNTER 2020-06-26 20:14 | Emergency (ER) | payer BC, OTHER ==
[2020-06-26 21:39] VITALS: RESP 18
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
[2020-06-27 00:47] LABS: Appearance,Urine Clear (Clear); Bilirubin,Urine Negative (Negative); Blood,Urine Trace (Negative); Color,Urine Yellow; Glucose,Urine (UA) Negative (Negative); Ketones,Urine Negative (Negative); Leukocyte Esterase,Urine Trace (Negative); Mucus,Urine Occasional /hpf; Nitrite,Urine Negative (Negative); Protein,Urine 2+ (Negative); RBC,Urine 1 /hpf (0-5); Specific Gravity,Urine 1.033 (1.001-1.035); Squamous Epithelial Cell,Urine 4 /hpf (0-4); WBC,Urine 10 /hpf (0-5)
[2020-06-27 02:54] VITALS: BP 102/64; PULSE 63; TEMP 98.4
[2020-06-29 08:14] LABS: C. trachomatis,PCR Positive (Neg,Equiv); Chlamydia trachomatis Source Genital; N. gonorrhoeae,PCR Negative (Neg,Equiv); Neisseria Source Genital
== END 2020-06-27 02:40 | disposition home or self-care (01) ==
LOC: EC 20:14
DX: T74.21XA Adult sexual abuse, confirmed, initial encounter (principal)
CPT/HCPCS: 81001; 81025; 87491; 87591; 99284

== ENCOUNTER 2020-10-29 20:21 | Emergency (ER) | payer BC, OTHER ==
[2020-10-29 21:01] VITALS: PULSE 79; RESP 18
--- NOTE | 2020-10-29 21:08 | ED ---
Lower Extremity Injury HPI - General Chief Complaint: Extremity Injury, Lower Stated Complaint: Lft ankle injury Source: patient, RN notes reviewed, old records reviewed Mode of arrival: ambulatory Limitations: no limitations - History of Present Illness Initial Comments: 19-year-old well-appearing white female, alert and oriented 4 in no acute distress presents to the emergency room with left ankle pain for one month. Patient states she was on a long board and fell injuring her left ankle month ago. She did not seek treatment at that time. Her mom is a nurse and told her just to wrap it. She states that ever since the injury it increases in pain and sometimes gets tingly while working. She just wants to make sure that there wasn't a fracture that healed wrong. There is no swelling, she has full range of motion. She denies any other injuries. She denies drug use but does vape. Complaint: ankle injury -: month(s) (1) Injury: Ankle: Left Type of Injury: unknown (Injured on a long board 1 month ago) Place: street/outdoors Worsens With: weight bearing Associated Symptoms: tingling Treatments Prior to Arrival: NSAIDS - Related Data Home Medications Medication Instructions Recorded Confirmed No Known Home Medications 08/05/19 08/05/19 Allergies Allergy/AdvReac Type Severity Reaction Status Date / Time No Known Allergies Allergy Verified 10/29/20 20:58 Review of Systems ROS Statement: Those systems with pertinent positive or pertinent negative responses have been documented in the HPI. ROS Other: All systems not noted in ROS Statement are negative. Past Medical History Past Medical History: No Reported History Additional Past Medical History / Comment(s): migraines History of Any Multi-Drug Resistant Organisms: None Reported Past Surgical History: No Surgical Hx Reported Past Anesthesia/Blood Transfusion Reactions: No Reported Reaction Past Psychological History: Anxiety, Depression Smoking Status: Current every day smoker, Vaper Past Alcohol Use History: Rare Past Drug Use History: None Reported - Past Family History Mother Family Medical History: No Reported History General Exam General appearance: alert, in no apparent distress Head exam: Present: atraumatic, normocephalic, normal inspection Eye exam: Present: normal appearance, PERRL, EOMI. Absent: scleral icterus, conjunctival injection, periorbital swelling ENT exam: Present: normal exam, normal oropharynx, mucous membranes moist Neck exam: Present: normal inspection, full ROM. Absent: tenderness, meningismus, thyromegaly Respiratory exam: Present: normal lung sounds bilaterally. Absent: respiratory distress, wheezes, rales, rhonchi, stridor, accessory muscle use, decreased breath sounds Cardiovascular Exam: Present: regular rate, normal rhythm, normal heart sounds. Absent: systolic murmur, diastolic murmur, rubs, gallop, clicks GI/Abdominal exam: Present: soft, normal bowel sounds. Absent: distended, tende rness, guarding, rebound, rigid Extremities exam: Present: normal inspection, full ROM, normal capillary refill. Absent: tenderness, pedal edema, joint swelling, calf tenderness Back exam: Present: full ROM. Absent: tenderness, CVA tenderness (R), CVA tenderness (L), muscle spasm, paraspinal tenderness, vertebral tenderness Neurological exam: Present: alert, oriented X3, CN II-XII intact Psychiatric exam: Present: normal affect, normal mood Skin exam: Present: warm, dry, intact, normal color. Absent: rash, cyanosis, diaphoretic Course Vital Signs 10/29/20 21:01 Temperature 98.1 F Pulse Rate 79 Respiratory 18 Rate Blood Pressure 107/65 O2 Sat by Pulse 100 Oximetry Medical Decision Making - Medical Decision Making Patient concerned about an injury she incurred a month ago to her left ankle. She is concerned for a fracture that healed inappropriately if she didn't address that and is coming in for an x-ray. X-ray shows ankle mortise is neil tomic. No fracture or dislocation, no pathologic calcifications. She'll be discharged home to follow up with her primary care doctor. Case discussed with Dr. Rendon. Disposition Clinical Impression: Ankle pain, left Disposition: HOME SELF-CARE Condition: Good Instructions (If sedation given, give patient instructions): Arthralgia (ED) Additional Instructions: Follow-up with the primary care doctor or orthopedics in 1 week Is patient prescribed a controlled substance at d/c from ED?: No Referrals: None,Stated [Primary Care Provider] - 1-2 days Time of Disposition: 21:50
--- NOTE | 2020-10-29 21:37 | XR ---
EXAMINATION TYPE: XR ankle complete LT DATE OF EXAM: 10/29/2020 COMPARISON: NONE HISTORY: Ankle pain TECHNIQUE: 3 views FINDINGS: Ankle mortise is anatomic. I see no fracture nor dislocation. Joint spaces are normal. Ther e are no pathologic calcifications. IMPRESSION: Negative left ankle exam.
[2020-10-29 22:34] VITALS: BP 139/70; TEMP 97.8
== END 2020-10-29 22:34 | disposition home or self-care (01) ==
LOC: EC 20:21
DX: M25.572 Pain in left ankle and joints of left foot (principal); G43.909 Migraine, unspecified, not intractable, without status migrainosus; F32.9 Major depressive disorder, single episode, unspecified; F41.9 Anxiety disorder, unspecified; F17.290 Nicotine dependence, other tobacco product, uncomplicated
CPT/HCPCS: 99283

== ENCOUNTER → 2020-11-17 | Outpatient (CLI) | payer BC, OTHER ==
--- NOTE | 2020-11-17 14:29 | XR ---
EXAMINATION TYPE: XR ankle complete LT DATE OF EXAM: 11/17/2020 COMPARISON: NONE HISTORY: Pain FINDINGS: Three views of the ankle demonstrate the ankle mortise to be intact and symmetric. The joint spaces are preserved. The osseous structures are intact. IMPRESSION: 1. No definite acute fracture or dislocation, if symptoms persist follow-up study in 7 to 10 days wou ld be suggested.
--- NOTE | 2020-11-17 14:30 | XR ---
EXAMINATION TYPE: XR foot complete LT DATE OF EXAM: 11/17/2020 COMPARISON: NONE HISTORY: Pain TECHNIQUE: Three views are submitted. FINDINGS: The osseous structures are intact. There is no acute fracture or dislocation. Joint spaces are p reserved. IMPRESSION: 1. No acute fracture or dislocation. If symptoms persist, follow-up exam in 7 to 10 days could be ob tained.
== END | disposition home or self-care (01) ==
LOC: RADXRMAIN 13:19
PROVIDERS: ATTEND Physician Assistant
DX: M25.572 Pain in left ankle and joints of left foot (principal)

== ENCOUNTER 2020-11-21 18:47 | Emergency (ER) | payer BC, OTHER ==
[2020-11-21 18:53] VITALS: RESP 16; TEMP 98.2
[2020-11-21] MEDS ORDERED: SODIUM CHLORIDE 0.9% 500 ML 500 ML IV STA (19:24)
[2020-11-21 20:03] LABS: Basophils % (A) 0 %; Eosinophils % (A) 0 %; HGB 14.2 gm/dL (11.4-16.0); Lymphocytes # (A) 1.9 k/uL (1.0-4.8); Lymphocytes % (A) 17 %; MCH 29.9 pg (25.0-35.0); MCHC 32.9 g/dL (31.0-37.0); MCV 90.6 fL (80.0-100.0); Mean Platelet Volume 7.9; Monocytes # (A) 0.4 k/uL (0-1.0); Monocytes % (A) 4 %; Neutrophils # (A) 8.6 k/uL (1.3-7.7); Neutrophils % (A) 78 %; Platelet Count 243 k/uL (150-450); RBC 4.74 m/uL (3.80-5.40); RDW 14.1 % (11.5-15.5)
[2020-11-21 20:04] LABS: Appearance,Urine Clear (Clear); Bilirubin,Urine Negative (Negative); Blood,Urine Negative (Negative); Color,Urine Yellow; Glucose,Urine (UA) Negative (Negative); Ketones,Urine Negative (Negative); Leukocyte Esterase,Urine Negative (Negative); Mucus,Urine Rare /hpf; Nitrite,Urine Negative (Negative); PH, Urine 6.5 (5.0-8.0); Protein,Urine 1+ (Negative); RBC,Urine 1 /hpf (0-5); Squamous Epithelial Cell,Urine 4 /hpf (0-4); Urobilinogen,Urine <2.0 mg/dL (<2.0); WBC,Urine 1 /hpf (0-5)
[2020-11-21 20:13] LABS: ALT 17 U/L (4-34); AST 25 U/L (14-36); African American GFR (CKD) >90 (>60 ml/min/1.73 sqM); Albumin 5.2 g/dL (3.5-5.0); Alkaline Phosphatase 56 U/L (38-126); Anion Gap 14 mmol/L; Blood Urea Nitrogen 12 mg/dL (7-17); Calcium 10.5 mg/dL (8.4-10.2); Carbon Dioxide 24 mmol/L (22-30); Chloride 101 mmol/L (98-107); Glucose 117 mg/dL (74-99); Lipase 60 U/L (23-300); Non-African American GFR(CKD) >90 (>60 ml/min/1.73 sqM); Sodium 139 mmol/L (137-145); Total Bilirubin 0.7 mg/dL (0.2-1.3); Total Protein 8.2 g/dL (6.3-8.2)
--- NOTE | 2020-11-21 20:41 | US ---
EXAMINATION TYPE: US transvaginal DATE OF EXAM: 11/21/2020 COMPARISON: NONE CLINICAL HISTORY: lower abd pain. TECHNIQUE: . Transvaginal sonographic images of the pelvis were acquired. Date of LMP: Pt does not have normal cycles due to IUD EXAM MEASUREMENTS: Uterus: 8.2 x 3.6 x 5.1 cm Endometrial Stripe: 0.4 cm Right Ovary: 3.1 x 2.0 x 1.9 cm Left Ovary: 3.1 x 1.2 x 1.2 cm 1. Uterus: Anteverted wnl 2. Endometrium: Small amount of fluid visualized 3. Right Ovary: Complex area visualized measuring 1.6 x 1.5 x 1.6 cm, possible hemorrhagic cyst 4. Left Ovary: wnl Spectral, color and waveform doppler imaging shows good arterial and venous flow within the ovaries ; there is no evidence for ovarian torsion. 5. Bilateral Adnexa: Moderate amount of free fluid visualized in right adnexa 6. Posterior cul-de-sac: Moderate amount of free fluid visualized IMPRESSION: Small complex cyst on the right ovary could be hemorrhagic cyst. No solid adnexal mass. No evidence o f ovarian torsion. There is free fluid in the cul-de-sac.
--- NOTE | 2020-11-21 21:11 | ED ---
General Adult HPI - General Chief complaint: Abdominal Pain Stated complaint: Abdominal Pain Time Seen by Provider: 11/21/20 18:59 Source: patient Mode of arrival: ambulatory Limitations: no limitations - History of Present Illness Initial comments: 19-year-old female patient presents to the emergency department today for evaluation of abdominal pain. Patient states that yesterday her child stepped on her abdomen is felt tender. States It again this morning. States she then started having sharp pains in the lower belly. Denies any abnormal vaginal bleeding or discharge her denies any hematuria, dysuria, urinary frequency, urinary urgency. Denies any constipation or diarrhea. Denies fever or chills. States she does have Mirena IUD and does not have any concerns for . Denies history of abdominal surgery. Patient denies any recent rash, cough, shortness of breath, chest pain, back pain, numbness, tingling, dizziness, weakness, headache, visual changes, or any other complaints. - Related Data Home Medications Medication Instructions Recorded Confirmed ALPRAZolam [Xanax] 0.25 mg PO DAILY PRN 11/21/20 11/21/20 Ibuprofen [Motrin] 800 mg PO Q8H PRN 11/21/20 11/21/20 Venlafaxine HCl ER [Effexor Xr] 37.5 mg PO DAILY 11/21/20 11/21/20 predniSONE [Deltasone] 40 mg PO DAILY 11/21/20 11/21/20 Allergies Allergy/AdvReac Type Severity Reaction Status Date / Time No Known Allergies Allergy Verified 11/21/20 20:24 Review of Systems ROS Statement: Those systems with pertinent positive or pertinent negative responses have been documented in the HPI. ROS Other: All systems not noted in ROS Statement are negative. Past Medical History Past Medical History: No Reported History Additional Past Medical History / Comment(s): migraines History of Any Multi-Drug Resistant Organisms: None Reported Past Surgical History: No Surgical Hx Reported Past Anesthesia/Blood Transfusion Reactions: No Reported Reaction Past Psychological History: Anxiety, Depression Smoking Status: Current every day smoker, Vaper Past Alcohol Use History: Rare Past Drug Use History: None Reported - Past Family History Mother Family Medical History: No Reported History General Exam Limitations: no limitations General appearance: alert, in no apparent distress, other (This is a well- developed, well-nourished adult female patient in no acute distress. Vital signs upon presentation temperature 98.2F, pulse 71, respirations 16, blood pressure 116/79, pulse ox 99% on room air.) Respiratory exam: Present: normal lung sounds bilaterally. Absent: respiratory distress, wheezes, rales, rhonchi, stridor Cardiovascular Exam: Present: regular rate, normal rhythm, normal heart sounds. Absent: systolic murmur, diastolic murmur, rubs, gallop, clicks GI/Abdominal exam: Present: soft, tenderness (Mild generalized lower abdominal tenderness), normal bowel sounds. Absent: distended, guarding, rebound, rigid Neurological exam: Present: alert, oriented X3, CN II-XII intact Psychiatric exam: Present: normal affect, normal mood Skin exam: Present: warm, dry, intact, normal color. Absent: rash Course Vital Signs 11/21/20 11/21/20 18:48 21:15 Temperature 98.2 F Pulse Rate 71 66 Respiratory 16 16 Rate Blood Pressure 116/79 115/78 O2 Sat by Pulse 99 99 Oximetry Medical Decision Making - Medical Decision Making 19-year-old female patient presents to the emergency department today for evaluation of right lower abdominal pain that started after her child stepped on her abdomen. Physical examination did reveal lower abdominal tenderness. She is afebrile normal vital signs. Denies nausea or vomiting. Having normal bowel movements. Labs reviewed and did reveal mildly elevated white blood cell count at 11.6. Ultrasound of the pelvis was obtained and showed no evidence for ovarian torsion though did reveal small hemorrhagic cyst on the right side. I did discuss findings and results with her. She'll be discharged home to follow- up with the primary care physician or [facility] [facility] for recheck in 1-2 days. Return parameters were discussed in detail. She verbalizes understanding and agrees this plan. Case discussed my attending Dr. Nelson. - Lab Data Result diagrams: 11/21/20 19:40 11/21/20 19:40 Lab Results 11/21/20 11/21/20 11/21/20 Range/Units 19:40 19:40 19:40 WBC 11.0 H (3.8-10.6) k/uL RBC 4.74 (3.80-5.40) m/uL Hgb 14.2 (11.4-16.0) gm/dL Hct 43.0 (34.0-46.0) % MCV 90.6 (80.0-100.0) fL MCH 29.9 (25.0-35.0) pg MCHC 32.9 (31.0-37.0) g/dL RDW 14.1 (11.5-15.5) % Plt Count 243 (150-450) k/uL MPV 7.9 Neutrophils % 78 % Lymphocytes % 17 % Monocytes % 4 % Eosinophils % 0 % Basophils % 0 % Neutrophils # 8.6 H (1.3-7.7) k/uL Lymphocytes # 1.9 (1.0-4.8) k/uL Monocytes # 0.4 (0-1.0) k/uL Eosinophils # 0.0 (0-0.7) k/uL Basophils # 0.0 (0-0.2) k/uL Sodium (137-145) mmol/L Potassium (3.5-5.1) mmol/L Chloride (98-107) mmol/L Carbon Dioxide (22-30) mmol/L Anion Gap mmol/L BUN (7-17) mg/dL Creatinine (0.52-1.04) mg/dL Est GFR (CKD-EPI)AfAm (>60 ml/min/1.73 sqM) Est GFR (CKD-EPI)NonAf (>60 ml/min/1.73 sqM) Glucose (74-99) mg/dL Plasma Lactic Acid Tyler (0.7-2.0) mmol/L Calcium (8.4-10.2) mg/dL Total Bilirubin (0.2-1.3) mg/dL AST (14-36) U/L ALT (4-34) U/L Alkaline Phosphatase (38-126) U/L Total Protein (6.3-8.2) g/dL Albumin (3.5-5.0) g/dL Lipase (23-300) U/L Urine Color Yellow Urine Appearance Clear (Clear) Urine pH 6.5 (5.0-8.0) Ur Specific [place] 1.020 (1.001-1.035) Urine Protein 1+ H (Negative) Urine Glucose (UA) Negative (Negative) Urine Ketones Negative (Negative) Urine Blood Negative (Negative) Urine Nitrite Negative (Negative) Urine Bilirubin Negative (Negative) Urine Urobilinogen <2.0 (<2.0) mg/dL Ur Leukocyte Esterase Negative (Negative) Urine RBC 1 (0-5) /hpf Urine WBC 1 (0-5) /hpf Ur Squamous Epith Cells 4 (0-4) /hpf Urine Mucus Rare H (None) /hpf Urine HCG, Qual Not Detected (Not Detectd) 11/21/20 11/21/20 Range/Units 19:40 19:40 WBC (3.8-10.6) k/uL RBC (3.80-5.40) m/uL Hgb (11.4-16.0) gm/dL Hct (34.0-46.0) % MCV (80.0-100.0) fL MCH (25.0-35.0) pg MCHC (31.0-37.0) g/dL RDW (11.5-15.5) % Plt Count (150-450) k/uL MPV Neutrophils % % Lymphocytes % % Monocytes % % Eosinophils % % Basophils % % Neutrophils # (1.3-7.7) k/uL Lymphocytes # (1.0-4.8) k/uL Monocytes # (0-1.0) k/uL Eosinophils # (0-0.7) k/uL Basophils # (0-0.2) k/uL Sodium 139 (137-145) mmol/L Potassium 4.0 (3.5-5.1) mmol/L Chloride 101 (98-107) mmol/L Carbon Dioxide 24 (22-30) mmol/L Anion Gap 14 mmol/L BUN 12 (7-17) mg/dL Creatinine 0.62 (0.52-1.04) mg/dL Est GFR (CKD-EPI)AfAm >90 (>60 ml/min/1.73 sqM) Est GFR (CKD-EPI)NonAf >90 (>60 ml/min/1.73 sqM) Glucose 117 H (74-99) mg/dL Plasma Lactic Acid Tyler 1.0 (0.7-2.0) mmol/L Calcium 10.5 H (8.4-10.2) mg/dL Total Bilirubin 0.7 (0.2-1.3) mg/dL AST 25 (14-36) U/L ALT 17 (4-34) U/L Alkaline Phosphatase 56 (38-126) U/L Total Protein 8.2 (6.3-8.2) g/dL Albumin 5.2 H (3.5-5.0) g/dL Lipase 60 (23-300) U/L Urine Color Urine Appearance (Clear) Urine pH (5.0-8.0) Ur Specific [place] (1.001-1.035) Urine Protein (Negative) Urine Glucose (UA) (Negative) Urine Ketones (Negative) Urine Blood (Negative) Urine Nitrite (Negative) Urine Bilirubin (Negative) Urine Urobilinogen (<2.0) mg/dL Ur Leukocyte Esterase (Negative) Urine RBC (0-5) /hpf Urine WBC (0-5) /hpf Ur Squamous Epith Cells (0-4) /hpf Urine Mucus (None) /hpf Urine HCG, Qual (Not Detectd) - Radiology Data Radiology results: report reviewed, image reviewed Ultrasound of the pelvis was obtained. Report was reviewed in its entirety. Impression by Dr. Mei shows small complex cyst on the right ovary could be hemorrhagic cyst. No solid adnexal mass. No evidence of ovarian torsion. There is free fluid in the cul-de-sac. Disposition Clinical Impression: Hemorrhagic ovarian cyst Disposition: HOME SELF-CARE Condition: Good Instructions (If sedation given, give patient instructions): Ovarian Cyst (ED) Additional Instructions: Up with [facility] for recheck as soon as possible. Return to the emergency department for any new, worsening, or concerning symptoms. Is patient prescribed a controlled substance at d/c from ED?: No Referrals: James Pettit MD [Primary Care Provider] - 1-2 days Time of Disposition: 21:11
[2020-11-21 21:19] VITALS: BP 115/78; PULSE 66
== END 2020-11-21 21:16 | disposition home or self-care (01) ==
LOC: EC 18:47
DX: N83.201 Unspecified ovarian cyst, right side (principal); G43.909 Migraine, unspecified, not intractable, without status migrainosus; F41.9 Anxiety disorder, unspecified; F32.9 Major depressive disorder, single episode, unspecified; F17.290 Nicotine dependence, other tobacco product, uncomplicated
CPT/HCPCS: 36415; 76830; 80053; 81001; 81025; 83605; 83690; 85025; 93975; 96360; 99284

== ENCOUNTER 2020-11-25 16:37 | Emergency (ER) | payer BC, OTHER ==
[2020-11-25 17:10] VITALS: RESP 16; TEMP 98.3
[2020-11-25 17:27] LABS: Appearance,Urine Clear (Clear); Bilirubin,Urine Negative (Negative); Blood,Urine Negative (Negative); Color,Urine Yellow; Glucose,Urine (UA) Negative (Negative); Ketones,Urine Negative (Negative); Leukocyte Esterase,Urine Negative (Negative); Nitrite,Urine Negative (Negative); PH, Urine 6.5 (5.0-8.0); Protein,Urine Trace (Negative); Specific Gravity,Urine 1.025 (1.001-1.035)
--- NOTE | 2020-11-25 18:08 | XR ---
EXAMINATION TYPE: XR chest 2V DATE OF EXAM: 11/25/2020 COMPARISON: 08/05/2019 HISTORY: Weakness TECHNIQUE: FINDINGS: Heart and mediastinum are normal. Lungs are clear. Diaphragm is normal. Bony thorax is inta ct. The pulmonary vascularity is normal. IMPRESSION: Normal chest. No change.
[2020-11-25 18:43] LABS: Glucose,Whole Blood 80 mg/dL (75-99)
[2020-11-25] MEDS ORDERED: SODIUM CHLORIDE 0.9% 1,000 ML IV ONE (18:59)
[2020-11-25 19:12] LABS: ALT 23 U/L (4-34); AST 23 U/L (14-36); African American GFR (CKD) >90 (>60 ml/min/1.73 sqM); Albumin 4.4 g/dL (3.5-5.0); Alkaline Phosphatase 56 U/L (38-126); Anion Gap 9 mmol/L; Blood Urea Nitrogen 17 mg/dL (7-17); Calcium 9.4 mg/dL (8.4-10.2); Carbon Dioxide 26 mmol/L (22-30); Chloride 102 mmol/L (98-107); Glucose 80 mg/dL (74-99); Non-African American GFR(CKD) >90 (>60 ml/min/1.73 sqM); Potassium 3.8 mmol/L (3.5-5.1); Sodium 137 mmol/L (137-145); Total Bilirubin 0.4 mg/dL (0.2-1.3); Total Protein 6.9 g/dL (6.3-8.2)
[2020-11-25 19:24] LABS: Basophils % (A) 0 %; Eosinophils # (A) 0.2 k/uL (0-0.7); Eosinophils % (A) 1 %; HCT 40.5 % (34.0-46.0); HGB 13.6 gm/dL (11.4-16.0); Lymphocytes # (A) 4.7 k/uL (1.0-4.8); Lymphocytes % (A) 40 %; MCH 30.8 pg (25.0-35.0); MCHC 33.7 g/dL (31.0-37.0); MCV 91.4 fL (80.0-100.0); Mean Platelet Volume 7.6; Monocytes # (A) 0.6 k/uL (0-1.0); Monocytes % (A) 5 %; Neutrophils # (A) 6.1 k/uL (1.3-7.7); Neutrophils % (A) 52 %; Platelet Count 202 k/uL (150-450); RBC 4.43 m/uL (3.80-5.40); RDW 14.7 % (11.5-15.5); WBC 11.8 k/uL (3.8-10.6)
--- NOTE | 2020-11-25 21:47 | ED ---
General Adult HPI - General Chief complaint: Recheck/Abnormal Lab/Rx Stated complaint: near syncope Time Seen by Provider: 11/25/20 17:05 Source: patient Mode of arrival: ambulatory Limitations: no limitations - History of Present Illness Initial comments: 19-year-old female who presents emergency room with reported presyncope. Patient states that she was at work when she suddenly felt dizzy, shaky and nauseated. She does admit to recently starting Effexor 37.5 mg last week. Denies any additional medication changes. Unsure if she is having a medication side effect. She denies any headaches or visual changes. No chest pain or shortness of breath. No history of hypoglycemia or diabetic issues. She ate some sugary foods thinking her sugar may be low. Denies abdominal pain. No changes in her bowel or bladder habits. Denies concern for . No other alleviating, precipitating or modifying factors. - Related Data Home Medications Medication Instructions Recorded Confirmed ALPRAZolam [Xanax] 0.25 mg PO DAILY PRN 11/21/20 11/25/20 Ibuprofen [Motrin] 800 mg PO Q8H PRN 11/21/20 11/25/20 Venlafaxine HCl ER [Effexor Xr] 37.5 mg PO DAILY@1300 11/21/20 11/25/20 Allergies Allergy/AdvReac Type Severity Reaction Status Date / Time No Known Allergies Allergy Verified 11/25/20 19:18 Review of Systems ROS Statement: Those systems with pertinent positive or pertinent negative responses have been documented in the HPI. ROS Other: All systems not noted in ROS Statement are negative. Past Medical History Past Medical History: No Reported History Additional Past Medical History / Comment(s): migraines History of Any Multi-Drug Resistant Organisms: None Reported Past Surgical History: No Surgical Hx Reported Past Anesthesia/Blood Transfusion Reactions: No Reported Reaction Past Psychological History: Anxiety, Depression Smoking Status: Current every day smoker, Vaper Past Alcohol Use History: Rare Past Drug Use History: None Reported - Past Family History Mother Family Medical History: No Reported History General Exam Limitations: no limitations General appearance: alert, in no apparent distress Head exam: Present: atraumatic, normocephalic, normal inspection Eye exam: Present: normal appearance, PERRL, EOMI. Absent: scleral icterus, conjunctival injection, periorbital swelling ENT exam: Present: normal exam, mucous membranes moist Neck exam: Present: normal inspection. Absent: tenderness, meningismus, lymphadenopathy Respiratory exam: Present: normal lung sounds bilaterally. Absent: respiratory distress, wheezes, rales, rhonchi, stridor Cardiovascular Exam: Present: regular rate, normal rhythm, normal heart sounds. Absent: systolic murmur, diastolic murmur, rubs, gallop, clicks GI/Abdominal exam: Present: soft, normal bowel sounds. Absent: distended, tenderness, guarding, rebound, rigid Extremities exam: Present: normal inspection, full ROM, normal capillary refill. Absent: tenderness, pedal edema, joint swelling, calf tenderness Back exam: Present: normal inspection Neurological exam: Present: alert, oriented X3, CN II-XII intact Psychiatric exam: Present: normal affect, normal mood Skin exam: Present: warm, dry, intact, normal color. Absent: rash Course Vital Signs 11/25/20 11/25/20 17:04 21:59 Temperature 98.3 F Pulse Rate 84 71 Respiratory 16 16 Rate Blood Pressure 92/62 101/62 O2 Sat by Pulse 99 97 Oximetry EKG Findings - EKG Comments: EKG Findings:: EKG demonstrates sinus bradycardia with ventricular rate of 56. OK interval 162. QRS 86. QTC of 362. Troponin elevation in the inferior leads. No acute ST segment elevation Medical Decision Making - Medical Decision Making On arrival patient's placed into room 22. Thorough history and physical was performed. EKG was performed. IV is established. Laboratory studies were conducted. Patient provided urine sample. Laboratory studies are reviewed and are all within normal limits. Chest x-ray demonstrates no acute intrathoracic process. Results are discussed the patient. Did inform her that her symptoms could be due to her recent new medication. She'll be discharged home and needs to follow-up to primary care doctor within 2-4 days for reevaluation. Patient may stop taking the Effexor as if she has any improvement in her symptoms. She may need further studies should her symptoms persist. Patient understood this. She has any new or worsening symptoms return to the emergency room. Patient was discharged home in stable condition - Lab Data Result diagrams: 11/25/20 18:47 11/25/20 18:47 Lab Results 11/25/20 11/25/20 11/25/20 Range/Units 17:18 18:42 18:47 WBC 11.8 H (3.8-10.6) k/uL RBC 4.43 (3.80-5.40) m/uL Hgb 13.6 (11.4-16.0) gm/dL Hct 40.5 (34.0-46.0) % MCV 91.4 (80.0-100.0) fL MCH 30.8 (25.0-35.0) pg MCHC 33.7 (31.0-37.0) g/dL RDW 14.7 (11.5-15.5) % Plt Count 202 (150-450) k/uL MPV 7.6 Neutrophils % 52 % Lymphocytes % 40 % Monocytes % 5 % Eosinophils % 1 % Basophils % 0 % Neutrophils # 6.1 (1.3-7.7) k/uL Lymphocytes # 4.7 (1.0-4.8) k/uL Monocytes # 0.6 (0-1.0) k/uL Eosinophils # 0.2 (0-0.7) k/uL Basophils # 0.0 (0-0.2) k/uL Sodium (137-145) mmol/L Potassium (3.5-5.1) mmol/L Chloride (98-107) mmol/L Carbon Dioxide (22-30) mmol/L Anion Gap mmol/L BUN (7-17) mg/dL Creatinine (0.52-1.04) mg/dL Est GFR (CKD-EPI)AfAm (>60 ml/min/1.73 sqM) Est GFR (CKD-EPI)NonAf (>60 ml/min/1.73 sqM) Glucose (74-99) mg/dL POC Glucose (mg/dL) 80 (75-99) mg/dL POC Glu Semiautomatic Taper Operator ID Sravani Mcclain Plasma Lactic Acid [place] (0.7-2.0) mmol/L Calcium (8.4-10.2) mg/dL Total Bilirubin (0.2-1.3) mg/dL AST (14-36) U/L ALT (4-34) U/L Alkaline Phosphatase (38-126) U/L Total Protein (6.3-8.2) g/dL Albumin (3.5-5.0) g/dL TSH (0.465-4.680) mIU/L Urine Color Yellow Urine Appearance Clear (Clear) Urine pH 6.5 (5.0-8.0) Ur Specific [place] 1.025 (1.001-1.035) Urine Protein Trace H (Negative) Urine Glucose (UA) Negative (Negative) Urine Ketones Negative (Negative) Urine Blood Negative (Negative) Urine Nitrite Negative (Negative) Urine Bilirubin Negative (Negative) Urine Urobilinogen 4.0 (<2.0) mg/dL Ur Leukocyte Esterase Negative (Negative) Urine HCG, Qual (Not Detectd) 11/25/20 11/25/20 11/25/20 Range/Units 18:47 18:47 Unknown WBC (3.8-10.6) k/uL RBC (3.80-5.40) m/uL Hgb (11.4-16.0) gm/dL Hct (34.0-46.0) % MCV (80.0-100.0) fL MCH (25.0-35.0) pg MCHC (31.0-37.0) g/dL RDW (11.5-15.5) % Plt Count (150-450) k/uL MPV Neutrophils % % Lymphocytes % % Monocytes % % Eosinophils % % Basophils % % Neutrophils # (1.3-7.7) k/uL Lymphocytes # (1.0-4.8) k/uL Monocytes # (0-1.0) k/uL Eosinophils # (0-0.7) k/uL Basophils # (0-0.2) k/uL Sodium 137 (137-145) mmol/L Potassium 3.8 (3.5-5.1) mmol/L Chloride 102 (98-107) mmol/L Carbon Dioxide 26 (22-30) mmol/L Anion Gap 9 mmol/L BUN 17 (7-17) mg/dL Creatinine 0.66 (0.52-1.04) mg/dL Est GFR (CKD-EPI)AfAm >90 (>60 ml/min/1.73 sqM) Est GFR (CKD-EPI)NonAf >90 (>60 ml/min/1.73 sqM) Glucose 80 (74-99) mg/dL POC Glucose (mg/dL) (75-99) mg/dL POC Glu Semiautomatic Taper Operator ID Plasma Lactic Acid [place] 0.9 (0.7-2.0) mmol/L Calcium 9.4 (8.4-10.2) mg/dL Total Bilirubin 0.4 (0.2-1.3) mg/dL AST 23 (14-36) U/L ALT 23 (4-34) U/L Alkaline Phosphatase 56 (38-126) U/L Total Protein 6.9 (6.3-8.2) g/dL Albumin 4.4 (3.5-5.0) g/dL TSH (0.465-4.680) mIU/L Urine Color Urine Appearance (Clear) Urine pH (5.0-8.0) Ur Specific [place] (1.001-1.035) Urine Protein (Negative) Urine Glucose (UA) (Negative) Urine Ketones (Negative) Urine Blood (Negative) Urine Nitrite (Negative) Urine Bilirubin (Negative) Urine Urobilinogen (<2.0) mg/dL Ur Leukocyte Esterase (Negative) Urine HCG, Qual Not Detected (Not Detectd) 11/25/20 Range/Units Unknown WBC (3.8-10.6) k/uL RBC (3.80-5.40) m/uL Hgb (11.4-16.0) gm/dL Hct (34.0-46.0) % MCV (80.0-100.0) fL MCH (25.0-35.0) pg MCHC (31.0-37.0) g/dL RDW (11.5-15.5) % Plt Count (150-450) k/uL MPV Neutrophils % % Lymphocytes % % Monocytes % % Eosinophils % % Basophils % % Neutrophils # (1.3-7.7) k/uL Lymphocytes # (1.0-4.8) k/uL Monocytes # (0-1.0) k/uL Eosinophils # (0-0.7) k/uL Basophils # (0-0.2) k/uL Sodium (137-145) mmol/L Potassium (3.5-5.1) mmol/L Chloride (98-107) mmol/L Carbon Dioxide (22-30) mmol/L Anion Gap mmol/L BUN (7-17) mg/dL Creatinine (0.52-1.04) mg/dL Est GFR (CKD-EPI)AfAm (>60 ml/min/1.73 sqM) Est GFR (CKD-EPI)NonAf (>60 ml/min/1.73 sqM) Glucose (74-99) mg/dL POC Glucose (mg/dL) (75-99) mg/dL POC Glu Semiautomatic Taper Operator ID Plasma Lactic Acid [place] (0.7-2.0) mmol/L Calcium (8.4-10.2) mg/dL Total Bilirubin (0.2-1.3) mg/dL AST (14-36) U/L ALT (4-34) U/L Alkaline Phosphatase (38-126) U/L Total Protein (6.3-8.2) g/dL Albumin (3.5-5.0) g/dL TSH 1.960 (0.465-4.680) mIU/L Urine Color Urine Appearance (Clear) Urine pH (5.0-8.0) Ur Specific [place] (1.001-1.035) Urine Protein (Negative) Urine Glucose (UA) (Negative) Urine Ketones (Negative) Urine Blood (Negative) Urine Nitrite (Negative) Urine Bilirubin (Negative) Urine Urobilinogen (<2.0) mg/dL Ur Leukocyte Esterase (Negative) Urine HCG, Qual (Not Detectd) Disposition Clinical Impression: Pre-syncope, Tremor Disposition: HOME SELF-CARE Condition: Stable Instructions (If sedation given, give patient instructions): Near Syncope (ED) Additional Instructions: Please follow-up with your primary care doctor in 2-4 days. They may want to adjust your current medications. Return to the emergency room for any new or worsening symptoms Is patient prescribed a controlled substance at d/c from ED?: No Referrals: James Pettit MD [Primary Care Provider] - 1-2 days Time of Disposition: 21:46
[2020-11-25 22:00] VITALS: BP 101/62; PULSE 71
== END 2020-11-25 22:00 | disposition home or self-care (01) ==
LOC: EC 16:37
DX: R55 Syncope and collapse (principal); G43.909 Migraine, unspecified, not intractable, without status migrainosus; F41.9 Anxiety disorder, unspecified; F32.9 Major depressive disorder, single episode, unspecified; F17.290 Nicotine dependence, other tobacco product, uncomplicated
CPT/HCPCS: 36415; 71046; 80053; 81003; 81025; 83605; 84443; 85025; 93005; 96360; 99284

== ENCOUNTER 2021-01-10 16:20 | Emergency (ER) | payer BC, OTHER ==
[2021-01-10 16:41] VITALS: RESP 18; TEMP 99.1
--- NOTE | 2021-01-10 18:23 | XR ---
EXAMINATION TYPE: XR chest 2V DATE OF EXAM: 01/10/2021 COMPARISON: 11/25/2020 HISTORY: Short of breath TECHNIQUE: 2 views FINDINGS: Heart and mediastinum are normal. Lungs are clear. Diaphragm is normal. Bony thorax appears normal. IMPRESSION: Normal chest. No change.
--- NOTE | 2021-01-10 19:34 | ED ---
General Adult HPI - General Chief complaint: Shortness of Breath Stated complaint: nausea, SOB Time Seen by Provider: 01/10/21 17:27 Source: patient, RN notes reviewed Mode of arrival: ambulatory Limitations: no limitations - History of Present Illness Initial comments: 20-year-old female with a past mental history of migraines presents to the emergency room for a chief complaint of not feeling well. Patient states for the past few days she has had a cough and congestion. Her throat has been bothering her a little bit as well. Patient has been having hot and cold flashes. She felt a little bit short of breath at work today however feels fine now. Denies chest pain.Patient has no other complaints at this time including shortness of breath, chest pain, abdominal pain, nausea or vomiting, headache, or visual changes. - Related Data Home Medications Medication Instructions Recorded Confirmed ALPRAZolam [Xanax] 0.25 mg PO DAILY PRN 11/21/20 11/25/20 Ibuprofen [Motrin] 800 mg PO Q8H PRN 11/21/20 11/25/20 Venlafaxine HCl ER [Effexor Xr] 37.5 mg PO DAILY@1300 11/21/20 11/25/20 Allergies Allergy/AdvReac Type Severity Reaction Status Date / Time No Known Allergies Allergy Verified 01/10/21 16:41 Review of Systems ROS Statement: Those systems with pertinent positive or pertinent negative responses have been documented in the HPI. ROS Other: All systems not noted in ROS Statement are negative. Past Medical History Past Medical History: No Reported History Additional Past Medical History / Comment(s): migraines History of Any Multi-Drug Resistant Organisms: None Reported Past Surgical History: No Surgical Hx Reported Past Anesthesia/Blood Transfusion Reactions: No Reported Reaction Past Psychological History: Anxiety, Depression Smoking Status: Current every day smoker, Vaper Past Alcohol Use History: Rare Past Drug Use History: None Reported - Past Family History Mother Family Medical History: No Reported History General Exam Limitations: no limitations General appearance: alert, in no apparent distress Head exam: Present: atraumatic Eye exam: Present: normal appearance, PERRL, EOMI. Absent: scleral icterus, conjunctival injection ENT exam: Present: normal exam, mucous membranes moist Neck exam: Present: normal inspection, full ROM. Absent: tenderness Respiratory exam: Present: normal lung sounds bilaterally. Absent: respiratory distress, wheezes Cardiovascular Exam: Present: regular rate, normal rhythm, normal heart sounds GI/Abdominal exam: Present: soft, normal bowel sounds. Absent: distended, tenderness Course Vital Signs 01/10/21 16:37 Temperature 99.1 F Pulse Rate 79 Respiratory 18 Rate Blood Pressure 113/81 O2 Sat by Pulse 98 Oximetry Medical Decision Making - Medical Decision Making Vitals are stable. Patient is well appearing. Physical exam unremarkable. Lungs are clear. Ramos virus was negative. Chest x-ray shows a normal chest. No change. At this time patient likely has viral upper respiratory infection. We will prescribe her supportive medication. She will follow-up with her doctor. She will return here for any worsening symptoms. - Lab Data Lab Results 01/10/21 Range/Units 18:43 SARS-CoV-2 (PCR) Not Detected (Not Detectd) Disposition Clinical Impression: Cough, Nasal congestion Disposition: HOME SELF-CARE Condition: Good Instructions (If sedation given, give patient instructions): Upper Respiratory Infection (ED) Additional Instructions: Please follow-up with your doctor in one to 2 days. Return to the emergency room for any worsening symptoms Is patient prescribed a controlled substance at d/c from ED?: No Referrals: James Pettit MD [Primary Care Provider] - 1-2 days Time of Disposition: 20:29
[2021-01-10 20:44] VITALS: BP 109/71; PULSE 81
== END 2021-01-10 20:44 | disposition home or self-care (01) ==
LOC: EC 16:20
DX: R09.81 Nasal congestion (principal); Z20.822 Contact with and (suspected) exposure to COVID-19; F32.9 Major depressive disorder, single episode, unspecified; F41.9 Anxiety disorder, unspecified; F17.290 Nicotine dependence, other tobacco product, uncomplicated; Z79.1 Long term (current) use of non-steroidal anti-inflammatories (NSAID); Z79.899 Other long term (current) drug therapy; R05.9 Cough, unspecified
CPT/HCPCS: 71046; 87635; 99283

== ENCOUNTER 2021-01-16 19:19 | Emergency (ER) | payer BC, OTHER ==
[2021-01-16 19:59] VITALS: TEMP 100
[2021-01-16] MEDS ORDERED: IBUPROFEN 400 MG TAB PO STA (21:03)
--- NOTE | 2021-01-16 21:08 | ED ---
General Adult HPI - General Chief complaint: Shortness of Breath Stated complaint: SOB Time Seen by Provider: 01/16/21 20:53 Source: patient, RN notes reviewed Mode of arrival: ambulatory Limitations: no limitations - History of Present Illness Initial comments: 20-year-old female, alert and oriented 4, presents to the emergency room with facial pain. States that she is seen by her primary care doctor on Tuesday and they gave her amoxicillin for bronchitis along with prednisone. She states they did test her for Covid and it was negative. She states that her symptoms started when her son came home last week with congestion and cough. She was also diagnosed with a urinary tract infection before that and on put on Macrobid and they told her to stop the Macrobid and take amoxicillin which would cover her urinary tract infection. She states that she no longer has dysuria but continues to have the facial pain between her eyes and forehead and low-grade fever. She denies tobacco smoking but does vape. -: days(s) (5) Location: face (Between eyes and forehead) Radiation: non-radiation Quality: other Consistency: constant (Pressure) Improves with: none Worsens with: none Associated Symptoms: cough (Congestion) Treatments Prior to Arrival: other (Amoxicillin and prednisone) - Related Data Home Medications Medication Instructions Recorded Confirmed ALPRAZolam [Xanax] 0.25 mg PO DAILY PRN 11/21/20 01/10/21 FLUoxetine HCL [PROzac] 10 mg PO HS 01/10/21 01/10/21 Nitrofurantoin Monohyd/M-Cryst 100 mg PO Q12HR 01/10/21 01/10/21 [Macrobid] medroxyPROGESTERone [Depo-Provera] 150 mg IM Q84D 01/10/21 01/10/21 Previous Rx's Medication Instructions Recorded Amoxicillin/Potassium Clav 1 tab PO Q12HR 7 Days #14 tab 01/16/21 [Augmentin 875-125 Tablet] Allergies Allergy/AdvReac Type Severity Reaction Status Date / Time No Known Allergies Allergy Verified 01/16/21 19:57 Review of Systems ROS Statement: Those systems with pertinent positive or pertinent negative responses have been documented in the HPI. ROS Other: All systems not noted in ROS Statement are negative. Past Medical History Past Medical History: No Reported History Additional Past Medical History / Comment(s): migraines History of Any Multi-Drug Resistant Organisms: None Reported Past Surgical History: No Surgical Hx Reported Past Anesthesia/Blood Transfusion Reactions: No Reported Reaction Past Psychological History: Anxiety, Depression Smoking Status: Current every day smoker, Vaper Past Alcohol Use History: Rare Past Drug Use History: None Reported - Past Family History Mother Family Medical History: No Reported History General Exam Limitations: no limitations General appearance: alert, in no apparent distress Head exam: Present: atraumatic, normocephalic, normal inspection Eye exam: Present: normal appearance, PERRL, EOMI. Absent: scleral icterus, conjunctival injection, periorbital swelling ENT exam: Present: normal exam, normal oropharynx, mucous membranes moist, TM's normal bilaterally Neck exam: Present: normal inspection, full ROM. Absent: tenderness, meningismus, lymphadenopathy Respiratory exam: Present: normal lung sounds bilaterally. Absent: respiratory distress, wheezes, rales, rhonchi, stridor Cardiovascular Exam: Present: regular rate, normal rhythm, normal heart sounds. Absent: systolic murmur, diastolic murmur, rubs, gallop, clicks GI/Abdominal exam: Present: soft, normal bowel sounds. Absent: distended, tenderness, guarding, rebound, rigid Neurological exam: Present: alert, oriented X3, normal gait Psychiatric exam: Present: normal affect, normal mood Skin exam: Present: warm, dry, intact, normal color. Absent: rash, cyanosis, diaphoretic Course Vital Signs 01/16/21 01/16/21 01/16/21 19:57 20:59 22:11 Temperature 100 F H Pulse Rate 83 82 Respiratory 18 18 18 Rate Blood Pressure 109/71 110/77 O2 Sat by Pulse 96 97 Oximetry 01/16/21 22:53 Temperature Pulse Rate 77 Respiratory 16 Rate Blood Pressure 118/74 O2 Sat by Pulse 97 Oximetry Medical Decision Making - Medical Decision Making Patient complaining of facial pain and pressure between her eyes and her forehead. She denies any eye pain and has no focal neurological deficits. She is ambulatory with a steady gait. She states that she has had a low-grade fever and chills. States that the pain is worse when she bends over. Lungs are clear to auscultation. Patient was advised to stop taking the amoxicillin and start Augmentin for sinusitis. Urinalysis was be tested in the emergency room and is no evidence of infection. Encouraged her to use Flonase or Afrin nasal spray in addition to the Augmentin. Patient is agreeable to this plan of care and will follow up with her primary care doctor next week. Case discussed with Dr. Mcintyre - Lab Data Lab Results 01/16/21 Range/Units 21:26 Urine Color Yellow Urine Appearance Clear (Clear) Urine pH 6.5 (5.0-8.0) Ur Specific [place] 1.023 (1.001-1.035) Urine Protein Negative (Negative) Urine Glucose (UA) Negative (Negative) Urine Ketones Negative (Negative) Urine Blood Negative (Negative) Urine Nitrite Negative (Negative) Urine Bilirubin Negative (Negative) Urine Urobilinogen 2.0 (<2.0) mg/dL Ur Leukocyte Esterase Negative (Negative) Disposition Clinical Impression: Sinusitis Disposition: HOME SELF-CARE Condition: Good Instructions (If sedation given, give patient instructions): Sinusitis (ED) Additional Instructions: Stop taking amoxicillin and take Augmentin as prescribed. Follow-up with the primary care doctor in 1 week. Return to the emergency room if any worsening symptoms including increased headache. Tylenol and Motrin as needed for pain and fever. Prescriptions: Amoxicillin/Potassium Clav [Augmentin 875-125 Tablet] 1 tab PO Q12HR 7 Days #14 tab Is patient prescribed a controlled substance at d/c from ED?: No Referrals: James Pettit MD [Primary Care Provider] - 1-2 days Time of Disposition: 22:30
[2021-01-16 21:35] LABS: Appearance,Urine Clear (Clear); Bilirubin,Urine Negative (Negative); Blood,Urine Negative (Negative); Color,Urine Yellow; Glucose,Urine (UA) Negative (Negative); Ketones,Urine Negative (Negative); Leukocyte Esterase,Urine Negative (Negative); Nitrite,Urine Negative (Negative); PH, Urine 6.5 (5.0-8.0); Protein,Urine Negative (Negative); Specific Gravity,Urine 1.023 (1.001-1.035)
[2021-01-16] MEDS ORDERED: AMOXIC-POT CLAV 875-125MG 1 EACH TAB PO STA (22:31)
[2021-01-16 22:56] VITALS: BP 118/74; PULSE 77; RESP 16
== END 2021-01-16 22:58 | disposition home or self-care (01) ==
LOC: EC 19:19
DX: J32.9 Chronic sinusitis, unspecified (principal); F41.9 Anxiety disorder, unspecified; F32.9 Major depressive disorder, single episode, unspecified; Z72.89 Other problems related to lifestyle; F17.290 Nicotine dependence, other tobacco product, uncomplicated
CPT/HCPCS: 81003; 99283

== ENCOUNTER 2021-01-26 15:56 | Emergency (ER) | payer BC ==
[2021-01-26 16:21] VITALS: TEMP 98.2
[2021-01-26 18:24] LABS: Basophils % (A) 0 %; Eosinophils # (A) 0.1 k/uL (0-0.7); Eosinophils % (A) 1 %; HCT 39.3 % (34.0-46.0); HGB 13.4 gm/dL (11.4-16.0); Lymphocytes # (A) 3.1 k/uL (1.0-4.8); Lymphocytes % (A) 35 %; MCH 30.2 pg (25.0-35.0); MCV 88.9 fL (80.0-100.0); Mean Platelet Volume 7.3; Monocytes # (A) 0.4 k/uL (0-1.0); Monocytes % (A) 5 %; Neutrophils # (A) 5.1 k/uL (1.3-7.7); Neutrophils % (A) 58 %; Platelet Count 260 k/uL (150-450); RBC 4.42 m/uL (3.80-5.40); RDW 12.9 % (11.5-15.5); WBC 8.8 k/uL (3.8-10.6)
[2021-01-26 18:36] LABS: ALT 27 U/L (4-34); AST 25 U/L (14-36); African American GFR (CKD) >90 (>60 ml/min/1.73 sqM); Albumin 4.7 g/dL (3.5-5.0); Alkaline Phosphatase 45 U/L (38-126); Anion Gap 9 mmol/L; Blood Urea Nitrogen 18 mg/dL (7-17); Calcium 9.8 mg/dL (8.4-10.2); Carbon Dioxide 23 mmol/L (22-30); Chloride 105 mmol/L (98-107); Glucose 101 mg/dL (74-99); Lipase 141 U/L (23-300); Magnesium 2.1 mg/dL (1.6-2.3); Non-African American GFR(CKD) >90 (>60 ml/min/1.73 sqM); Sodium 137 mmol/L (137-145); Total Bilirubin 0.4 mg/dL (0.2-1.3); Total Protein 7.5 g/dL (6.3-8.2)
[2021-01-26 18:44] LABS: Potassium 4.5 mmol/L (3.5-5.1)
[2021-01-26 18:47] LABS: Partial Thromboplastin Time 23.4 sec (22.0-30.0); Prothrombin Time 10.9 sec (9.0-12.0)
--- NOTE | 2021-01-26 19:13 | XR ---
EXAMINATION TYPE: XR chest 2V DATE OF EXAM: 01/26/2021 COMPARISON: 01/10/2021 HISTORY: Chest pain TECHNIQUE: Frontal and lateral views of the chest are obtained. FINDINGS: There is no focal air space opacity, pleural effusion, or pneumothorax seen. The cardiac silhouette size is within normal limits. The osseous structures are intact. There is nonspecific so ft tissue prominence of the upper back as seen on the lateral view. IMPRESSION: Nonspecific upper back soft tissue prominence. Recommend clinical correlation. Otherwise no acute cardiopulmonary process.
--- NOTE | 2021-01-26 19:46 | ED ---
Arrhythmia/Palpitations HPI - General Chief Complaint: Arrhythmia/Palpitations Stated Complaint: heart racing Source: patient Mode of arrival: ambulatory Limitations: no limitations - History of Present Illness Initial Comments: 20-year-old female past history of migraines presents emergency Department with reported palpitations. 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 She describes the pain as a reflux sensation which made her feel short of breath. Admits to associated nausea without vomiting. Denies history of similar pain in the past. No ripping or tearing sensation to her back. Did not take any medications for her symptoms that promptly told her coworkers and was told to come into the emergency room for evaluation. No history of cardiac disease. No family history of premature cardiac . Denies concern for . Upon arrival to the hospital the patient reports that her symptoms have completely resolved at this time. No recent, fevers, chills or cough. No other alleviating, pr ecipitating or modifying factors. - Related Data Home Medications Medication Instructions Recorded Confirmed ALPRAZolam [Xanax] 0.25 mg PO DAILY PRN 11/21/20 01/26/21 FLUoxetine HCL [PROzac] 10 mg PO HS 01/10/21 01/26/21 medroxyPROGESTERone [Depo-Provera] 150 mg IM Q84D 01/10/21 01/26/21 Ibuprofen [Motrin] 800 mg PO Q8H PRN 01/26/21 01/26/21 Allergies Allergy/AdvReac Type Severity Reaction Status Date / Time No Known Allergies Allergy Verified 01/26/21 16:21 Review of Systems ROS Statement: Those systems with pertinent positive or pertinent negative responses have been documented in the HPI. ROS Other: All systems not noted in ROS Statement are negative. Past Medical History Past Medical History: No Reported History Additional Past Medical History / Comment(s): migraines History of Any Multi-Drug Resistant Organisms: None Reported Past Surgical History: No Surgical Hx Reported Past Anesthesia/Blood Transfusion Reactions: No Reported Reaction Past Psychological History: Anxiety, Depression Smoking Status: Current every day smoker, Vaper Past Alcohol Use History: Rare Past Drug Use History: None Reported - Past Family History Mother Family Medical History: No Reported History General Exam Limitations: no limitations Course Vital Signs 01/26/21 01/26/21 01/26/21 16:18 16:30 20:17 Temperature 98.2 F Pulse Rate 79 72 Pulse Rate [ 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 ND interval 154. QRS 92. QTC of 393. J-point elevation in inferior leads. No acute ST segment elevation Medical Decision Making - Medical Decision Making Upon arrival patient was placed into room 23. A thorough history and physical exam is performed. IV is established laboratories history conducted. Pelvic EKG was performed. Review the patient's labs demonstrate no abnormalities. Chest x-ray demonstrates intrathoracic process. Patient remained symptom-free in the emergency department. She will be discharged home at this time. Recommend that she follow up with her primary care doctor and have monitoring and echo performed. Return to the emergency room for any new or worsening symptoms. Patient agreed this was discharged home in stable condition - Lab Data Result diagrams: 01/26/21 18:18 01/26/21 18:18 Lab Results 01/26/21 01/26/21 01/26/21 Range/Units 18:18 18:18 18:18 WBC 8.8 (3.8-10.6) k/uL RBC 4.42 (3.80-5.40) m/uL Hgb 13.4 (11.4-16.0) gm/dL Hct 39.3 (34.0-46.0) % MCV 88.9 (80.0-100.0) fL MCH 30.2 (25.0-35.0) pg MCHC 34.0 (31.0-37.0) g/dL RDW 12.9 (11.5-15.5) % Plt Count 260 (150-450) k/uL MPV 7.3 Neutrophils % 58 % Lymphocytes % 35 % Monocytes % 5 % Eosinophils % 1 % Basophils % 0 % Neutrophils # 5.1 (1.3-7.7) k/uL Lymphocytes # 3.1 (1.0-4.8) k/uL Monocytes # 0.4 (0-1.0) k/uL Eosinophils # 0.1 (0-0.7) k/uL Basophils # 0.0 (0-0.2) k/uL PT 10.9 (9.0-12.0) sec INR 1.0 (<1.2) APTT 23.4 (22.0-30.0) sec Sodium 137 (137-145) mmol/L Potassium 4.5 (3.5-5.1) mmol/L Chloride 105 (98-107) mmol/L Carbon Dioxide 23 (22-30) mmol/L Anion Gap 9 mmol/L BUN 18 H (7-17) mg/dL Creatinine 0.75 (0.52-1.04) mg/dL Est GFR (CKD-EPI)AfAm >90 (>60 ml/min/1.73 sqM) Est GFR (CKD-EPI)NonAf >90 (>60 ml/min/1.73 sqM) Glucose 101 H (74-99) mg/dL Calcium 9.8 (8.4-10.2) mg/dL Magnesium 2.1 (1.6-2.3) mg/dL Total Bilirubin 0.4 (0.2-1.3) mg/dL AST 25 (14-36) U/L ALT 27 (4-34) U/L Alkaline Phosphatase 45 (38-126) U/L Troponin I (0.000-0.034) ng/mL Total Protein 7.5 (6.3-8.2) g/dL Albumin 4.7 (3.5-5.0) g/dL Lipase 141 (23-300) U/L Urine Color Urine Appearance (Clear) Urine pH (5.0-8.0) Ur Specific [place] (1.001-1.035) Urine Protein (Negative) Urine Glucose (UA) (Negative) Urine Ketones (Negative) Urine Blood (Negative) Urine Nitrite (Negative) Urine Bilirubin (Negative) Urine Urobilinogen (<2.0) mg/dL Ur Leukocyte Esterase (Negative) Urine HCG, Qual (Not Detectd) 01/26/21 01/26/21 01/26/21 Range/Units 18:18 20:04 20:04 WBC (3.8-10.6) k/uL RBC (3.80-5.40) m/uL Hgb (11.4-16.0) gm/dL Hct (34.0-46.0) % MCV (80.0-100.0) fL MCH (25.0-35.0) pg MCHC (31.0-37.0) g/dL RDW (11.5-15.5) % Plt Count (150-450) k/uL MPV Neutrophils % % Lymphocytes % % Monocytes % % Eosinophils % % Basophils % % Neutrophils # (1.3-7.7) k/uL Lymphocytes # (1.0-4.8) k/uL Monocytes # (0-1.0) k/uL Eosinophils # (0-0.7) k/uL Basophils # (0-0.2) k/uL PT (9.0-12.0) sec INR (<1.2) APTT (22.0-30.0) sec Sodium (137-145) mmol/L Potassium (3.5-5.1) mmol/L Chloride (98-107) mmol/L Carbon Dioxide (22-30) mmol/L Anion Gap mmol/L BUN (7-17) mg/dL Creatinine (0.52-1.04) mg/dL Est GFR (CKD-EPI)AfAm (>60 ml/min/1.73 sqM) Est GFR (CKD-EPI)NonAf (>60 ml/min/1.73 sqM) Glucose (74-99) mg/dL Calcium (8.4-10.2) mg/dL Magnesium (1.6-2.3) mg/dL Total Bilirubin (0.2-1.3) mg/dL AST (14-36) U/L ALT (4-34) U/L Alkaline Phosphatase (38-126) U/L Troponin I <0.012 (0.000-0.034) ng/mL Total Protein (6.3-8.2) g/dL Albumin (3.5-5.0) g/dL Lipase (23-300) U/L Urine Color Light Yellow Urine Appearance Clear (Clear) Urine pH 6.5 (5.0-8.0) Ur Specific [place] 1.016 (1.001-1.035) Urine Protein Negative (Negative) Urine Glucose (UA) Negative (Negative) Urine Ketones Negative (Negative) Urine Blood Negative (Negative) Urine Nitrite Negative (Negative) Urine Bilirubin Negative (Negative) Urine Urobilinogen <2.0 (<2.0) mg/dL Ur Leukocyte Esterase Negative (Negative) Urine HCG, Qual Not Detected (Not Detectd) Disposition Clinical Impression: Palpitations Disposition: HOME SELF-CARE Condition: Stable Instructions (If sedation given, give patient instructions): Heart Palpitations (ED) Additional Instructions: Please follow up with your primary care doctor in 2-4 days. You should have an echo and holter monitoring for your symptoms. Return to the emergency room for any new or worsening symptoms Is patient prescribed a controlled substance at d/c from ED?: No Referrals: James Pettit MD [Primary Care Provider] - 1-2 days Time of Disposition: 19:46
[2021-01-26 20:18] VITALS: BP 120/84; PULSE 72; RESP 20
[2021-01-26 20:29] LABS: Appearance,Urine Clear (Clear); Bilirubin,Urine Negative (Negative); Blood,Urine Negative (Negative); Color,Urine Light Yellow; Glucose,Urine (UA) Negative (Negative); Ketones,Urine Negative (Negative); Leukocyte Esterase,Urine Negative (Negative); Nitrite,Urine Negative (Negative); PH, Urine 6.5 (5.0-8.0); Protein,Urine Negative (Negative); Specific Gravity,Urine 1.016 (1.001-1.035); Urobilinogen,Urine <2.0 mg/dL (<2.0)
== END 2021-01-26 20:18 | disposition home or self-care (01) ==
LOC: EC 15:56
DX: R00.2 Palpitations (principal); F41.9 Anxiety disorder, unspecified; F32.9 Major depressive disorder, single episode, unspecified; F17.200 Nicotine dependence, unspecified, uncomplicated
CPT/HCPCS: 36415; 71046; 80053; 81003; 81025; 83690; 83735; 84484; 85025; 85610; 85730; 93005; 99285

== ENCOUNTER 2021-01-31 00:20 | Emergency (ER) | payer BC ==
[2021-01-31 01:19] VITALS: BP 101/61; PULSE 85; RESP 16; TEMP 98.6
[2021-01-31] MEDS ORDERED: hydrOXYzine pamoate 25 MG CAP PO STA (02:40)
--- NOTE | 2021-01-31 02:53 | ED ---
Anxiety HPI - General Chief Complaint: Anxiety Stated Complaint: Anxiety, Migraine Time Seen by Provider: 01/31/21 01:57 Source: patient Mode of arrival: ambulatory - Related Data Home Medications: Home Medications Medication Instructions Recorded Confirmed ALPRAZolam [Xanax] 0.25 mg PO DAILY PRN 11/21/20 01/26/21 FLUoxetine HCL [PROzac] 10 mg PO HS 01/10/21 01/26/21 medroxyPROGESTERone [Depo-Provera] 150 mg IM Q84D 01/10/21 01/26/21 Ibuprofen [Motrin] 800 mg PO Q8H PRN 01/26/21 01/26/21 Allergies/Adverse Reactions: Allergies Allergy/AdvReac Type Severity Reaction Status Date / Time No Known Allergies Allergy Verified 01/31/21 01:15 Review of Systems ROS Statement: Those systems with pertinent positive or pertinent negative responses have been documented in the HPI. ROS Other: All systems not noted in ROS Statement are negative. Past Medical History Past Medical History: No Reported History Additional Past Medical History / Comment(s): migraines History of Any Multi-Drug Resistant Organisms: None Reported Past Surgical History: No Surgical Hx Reported Past Anesthesia/Blood Transfusion Reactions: No Reported Reaction Past Psychological History: Anxiety, Depression Smoking Status: Vaper Past Alcohol Use History: Rare Past Drug Use History: None Reported - Past Family History Mother Family Medical History: No Reported History Course Vital Signs 01/31/21 01:15 Temperature 98.6 F Pulse Rate 85 Respiratory 16 Rate Blood Pressure 101/61 O2 Sat by Pulse 99 Oximetry Disposition Clinical Impression: Acute anxiety, Panic attack Disposition: HOME SELF-CARE Condition: Good Instructions (If sedation given, give patient instructions): Generalized Anxiety Disorder (ED) Is patient prescribed a controlled substance at d/c from ED?: No Referrals: James Pettit MD [Primary Care Provider] - 1-2 days
== END 2021-01-31 04:42 | disposition home or self-care (01) ==
LOC: EC 00:20
DX: F41.0 Panic disorder [episodic paroxysmal anxiety] (principal); F32.9 Major depressive disorder, single episode, unspecified; F17.290 Nicotine dependence, other tobacco product, uncomplicated; Z72.89 Other problems related to lifestyle
CPT/HCPCS: 99283

== ENCOUNTER 2021-02-04 15:38 | Emergency (ER) | payer BC ==
[2021-02-04 15:50] VITALS: BP 99/65; PULSE 79; RESP 18; TEMP 97.7
--- NOTE | 2021-02-04 16:37 | ED ---
Recheck HPI - General Chief Complaint: Recheck/Abnormal Lab/Rx Stated Complaint: Covid exposure Time Seen by Provider: 02/04/21 15:53 Source: patient Mode of arrival: ambulatory Limitations: no limitations - History of Present Illness Initial Comments: 20-year-old female patient presented to the emergency department today for COVID-19 testing. States that she was recently exposed to her mother who tested positive. She denies having any symptoms at this time. Denies any chance of . She is not vaccinated. - Related Data Home Medications Medication Instructions Recorded Confirmed ALPRAZolam [Xanax] 0.25 mg PO DAILY PRN 11/21/20 01/26/21 FLUoxetine HCL [PROzac] 10 mg PO HS 01/10/21 01/26/21 medroxyPROGESTERone [Depo-Provera] 150 mg IM Q84D 01/10/21 01/26/21 Ibuprofen [Motrin] 800 mg PO Q8H PRN 01/26/21 01/26/21 Allergies Allergy/AdvReac Type Severity Reaction Status Date / Time No Known Allergies Allergy Verified 02/04/21 15:47 Review of Systems ROS Statement: Those systems with pertinent positive or pertinent negative responses have been documented in the HPI. ROS Other: All systems not noted in ROS Statement are negative. Past Medical History Past Medical History: No Reported History Additional Past Medical History / Comment(s): migraines History of Any Multi-Drug Resistant Organisms: None Reported Past Surgical History: No Surgical Hx Reported Past Anesthesia/Blood Transfusion Reactions: No Reported Reaction Past Psychological History: Anxiety, Depression Smoking Status: Vaper Past Alcohol Use History: Rare Past Drug Use History: None Reported - Past Family History Mother Family Medical History: No Reported History General Exam Limitations: no limitations General appearance: alert, in no apparent distress, other (This is a well- developed, well-nourished adult female patient in no acute distress) ENT exam: Present: normal exam, normal oropharynx, mucous membranes moist Respiratory exam: Present: normal lung sounds bilaterally. Absent: respiratory distress, wheezes, rales, rhonchi, stridor Cardiovascular Exam: Present: regular rate, normal rhythm, normal heart sounds. Absent: systolic murmur, diastolic murmur, rubs, gallop, clicks GI/Abdominal exam: Present: soft, normal bowel sounds. Absent: distended, tenderness, guarding, rebound, rigid Neurological exam: Present: alert, oriented X3, CN II-XII intact Psychiatric exam: Present: normal affect, normal mood Skin exam: Present: warm, dry, intact, normal color. Absent: rash Course Vital Signs 02/04/21 15:48 Temperature 97.7 F Pulse Rate 79 Respiratory 18 Rate Blood Pressure 99/65 O2 Sat by Pulse 98 Oximetry Medical Decision Making - Medical Decision Making 20-year-old female patient presenting requesting Covid testing as she was exposed. She denies any symptoms at this time. Vital signs are unremarkable. Lungs are clear to auscultation. She did test positive. We did scuff supportive care. Instructed her to obtain [id number] vitamins and cold medications that she developed symptoms. She is instructed to follow-up with her primary care physician for recheck in 1-2 days. Return parameters were discussed in detail. She verbalizes understanding and agrees with this plan. My attending is Dr. Liriano. - Lab Data Lab Results 02/04/21 Range/Units 16:52 Coronavirus (PCR) Detected A (Not Detectd) Disposition Clinical Impression: COVID-19 Disposition: HOME SELF-CARE Condition: Good Instructions (If sedation given, give patient instructions): Coronavirus Disease 2019 (COVID-19) Additional Instructions: You must quarantine for 10 days. If you develop symptoms utilize tylenol and motrin for fever and aches. Increase fluids. Use over the counter vitamins D3, Vitamin C, and Zinc. Return for any new, worsening, or concerning symptoms . Is patient prescribed a controlled substance at d/c from ED?: No Referrals: James Pettit MD [Primary Care Provider] - 1-2 days Time of Disposition: 17:39
== END 2021-02-04 18:05 | disposition home or self-care (01) ==
LOC: EC 15:38
DX: U07.1 COVID-19 (principal); F41.9 Anxiety disorder, unspecified; F32.9 Major depressive disorder, single episode, unspecified; F17.290 Nicotine dependence, other tobacco product, uncomplicated
CPT/HCPCS: 87635; 99282

== ENCOUNTER 2021-02-17 22:22 | Emergency (ER) | payer BC ==
[2021-02-17 22:31] VITALS: BP 109/67; PULSE 111; RESP 19; TEMP 98
[2021-02-18] MEDS ORDERED: SULFAMETHOX-TMP 800-160MG 1 EACH TAB PO STA (00:41)
--- NOTE | 2021-02-18 01:19 | ED ---
Skin/Abscess/FB HPI - General Chief complaint: Skin/Abscess/Foreign Body Stated complaint: L arm sore Time Seen by Provider: 02/18/21 00:36 Source: patient, RN notes reviewed Mode of arrival: ambulatory Limitations: no limitations - History of Present Illness Initial comments: Patient is a 20-year-old female that presents to the emergency department com plaining of several small vesicles/pustules on her left upper arm. She no she recently got a new tattoo and thinks she might have a skin infection. Patient does have a history of MRSA. She notes that the little vesicles have popped and weeks. Patient denies any fever. She denies any nausea vomiting. Patient was otherwise well-appearing in no apparent distress. She denied any chest pain shortness of breath headache nausea vomiting diarrhea constipation fever fatigue chills. - Related Data Home Medications Medication Instructions Recorded Confirmed ALPRAZolam [Xanax] 0.25 mg PO DAILY PRN 11/21/20 01/26/21 FLUoxetine HCL [PROzac] 10 mg PO HS 01/10/21 01/26/21 medroxyPROGESTERone [Depo-Provera] 150 mg IM Q84D 01/10/21 01/26/21 Ibuprofen [Motrin] 800 mg PO Q8H PRN 01/26/21 01/26/21 Previous Rx's Medication Instructions Recorded Sulfamethox-Tmp 800-160Mg [Bactrim 1 each PO Q12HR #20 tab 02/18/21 Ds] Allergies Allergy/AdvReac Type Severity Reaction Status Date / Time No Known Allergies Allergy Verified 02/04/21 15:47 Review of Systems ROS Statement: Those systems with pertinent positive or pertinent negative responses have been documented in the HPI. ROS Other: All systems not noted in ROS Statement are negative. Past Medical History Past Medical History: No Reported History Additional Past Medical History / Comment(s): migraines History of Any Multi-Drug Resistant Organisms: None Reported Past Surgical History: No Surgical Hx Reported Past Anesthesia/Blood Transfusion Reactions: No Reported Reaction Past Psychological History: Anxiety, Depression Smoking Status: Vaper Past Alcohol Use History: Rare Past Drug Use History: None Reported - Past Family History Mother Family Medical History: No Reported History General Exam Limitations: no limitations General appearance: alert, in no apparent distress Head exam: Present: atraumatic, normocephalic, normal inspection Eye exam: Present: normal appearance, PERRL, EOMI. Absent: scleral icterus, conjunctival injection, periorbital swelling ENT exam: Present: normal exam, mucous membranes moist Neck exam: Present: normal inspection. Absent: tenderness, meningismus, lymphadenopathy Respiratory exam: Present: normal lung sounds bilaterally. Absent: respiratory distress, wheezes, rales, rhonchi, stridor Cardiovascular Exam: Present: regular rate, normal rhythm, normal heart sounds. Absent: systolic murmur, diastolic murmur, rubs, gallop, clicks Extremities exam: Present: normal inspection, full ROM, normal capillary refill. Absent: tenderness, pedal edema, joint swelling, calf tenderness Neurological exam: Present: alert, oriented X3 Psychiatric exam: Present: normal affect, normal mood Skin exam: Present: warm, dry, intact, normal color, vesicles (Several scattered over the left upper arm anterior and posterior aspect.). Absent: rash Course Vital Signs 02/17/21 22:28 Temperature 98.0 F Pulse Rate 111 H Respiratory 19 Rate Blood Pressure 109/67 O2 Sat by Pulse 99 Oximetry Medical Decision Making - Medical Decision Making 20-year-old female with localized cellulitis around new tattoo. Requesting antibody for 1 tablet of Bactrim double strength ordered here. Rest antibiotics at pharmacy. Case discussed with Dr. Mcintyre, patient can discharge home. Disposition Clinical Impression: Cellulitis Disposition: HOME SELF-CARE Condition: Stable Instructions (If sedation given, give patient instructions): Cellulitis (ED) Additional Instructions: Please return to the Emergency Department if symptoms worsen or any other con cerns. Take antibiotics as prescribed. Follow-up with primary care 1-2 days. Is patient prescribed a controlled substance at d/c from ED?: No Referrals: James Pettit MD [Primary Care Provider] - 1-2 days Time of Disposition: 01:25
== END 2021-02-18 01:53 | disposition home or self-care (01) ==
LOC: EC 22:22
DX: L03.114 Cellulitis of left upper limb (principal); F41.9 Anxiety disorder, unspecified; F32.A Depression, unspecified; F17.290 Nicotine dependence, other tobacco product, uncomplicated; Z79.1 Long term (current) use of non-steroidal anti-inflammatories (NSAID); Z79.899 Other long term (current) drug therapy
CPT/HCPCS: 99283

== ENCOUNTER 2021-02-27 17:33 | Emergency (ER) | payer BC, OTHER ==
[2021-02-27 18:22] VITALS: BP 124/82; PULSE 76; RESP 18; TEMP 98.6
[2021-02-27 22:20] LABS: Appearance,Urine Clear (Clear); Bacteria,Urine Rare /hpf; Bilirubin,Urine Negative (Negative); Blood,Urine Negative (Negative); Color,Urine Yellow; Glucose,Urine (UA) Negative (Negative); Ketones,Urine Negative (Negative); Leukocyte Esterase,Urine Small (Negative); Mucus,Urine Rare /hpf; Nitrite,Urine Negative (Negative); PH, Urine 6.5 (5.0-8.0); Protein,Urine Negative (Negative); RBC,Urine <1 /hpf (0-5); Specific Gravity,Urine 1.017 (1.001-1.035); Squamous Epithelial Cell,Urine 1 /hpf (0-4); Urobilinogen,Urine <2.0 mg/dL (<2.0); WBC,Urine 2 /hpf (0-5)
[2021-02-27] MEDS ORDERED: ONDANSETRON 4 MG ODT STARTER PACK 2 TAB BTL PO STA (22:37)
--- NOTE | 2021-02-27 22:38 | ED ---
Nausea/Vomiting/Diarrhea HPI - General Chief complaint: Nausea/Vomiting/Diarrhea Stated complaint: Nausea,Abd Pain,Back Pain Time Seen by Provider: 02/27/21 22:04 Source: patient Mode of arrival: ambulatory Limitations: no limitations - History of Present Illness Initial comments: 20-year-old female patient presents for evaluation of nausea and low back pain. Patient states that she was at work when symptoms started states she could not stay there. States while waiting in the waiting room her symptoms did seem to resolve. States she is no longer having any back pain. Nausea is improved. She denies any fever or chills. She never had any vomiting. Denies any hematuria, dysuria, urinary frequency, urinary urgency. Denies chance of . States that she has not had much sleep this week, a total of 12 hours. States she is working a lot and believes that sleep deprivation as a cause for her symptoms. - Related Data Home Medications Medication Instructions Recorded Confirmed ALPRAZolam [Xanax] 0.25 mg PO DAILY PRN 11/21/20 01/26/21 FLUoxetine HCL [PROzac] 10 mg PO HS 01/10/21 01/26/21 medroxyPROGESTERone [Depo-Provera] 150 mg IM Q84D 01/10/21 01/26/21 Ibuprofen [Motrin] 800 mg PO Q8H PRN 01/26/21 01/26/21 Previous Rx's Medication Instructions Recorded Sulfamethox-Tmp 800-160Mg [Bactrim 1 each PO Q12HR #20 tab 02/18/21 Ds] Allergies Allergy/AdvReac Type Severity Reaction Status Date / Time No Known Allergies Allergy Verified 02/27/21 18:22 Review of Systems ROS Statement: Those systems with pertinent positive or pertinent negative responses have been documented in the HPI. ROS Other: All systems not noted in ROS Statement are negative. Past Medical History Past Medical History: No Reported History Additional Past Medical History / Comment(s): migraines History of Any Multi-Drug Resistant Organisms: None Reported Past Surgical History: No Surgical Hx Reported Past Anesthesia/Blood Transfusion Reactions: No Reported Reaction Past Psychological History: Anxiety, Depression Smoking Status: Vaper Past Alcohol Use History: Rare Past Drug Use History: None Reported - Past Family History Mother Family Medical History: No Reported History General Exam Limitations: no limitations General appearance: alert, in no apparent distress, other (This is a well- developed, well-nourished adult female in no acute distress.) ENT exam: Present: normal exam, normal oropharynx, mucous membranes moist Respiratory exam: Present: normal lung sounds bilaterally. Absent: respiratory distress, wheezes, rales, rhonchi, stridor Cardiovascular Exam: Present: regular rate, normal rhythm, normal heart sounds. Absent: systolic murmur, diastolic murmur, rubs, gallop, clicks GI/Abdominal exam: Present: soft, normal bowel sounds. Absent: distended, tenderness, guarding, rebound, rigid Neurological exam: Present: alert, oriented X3, CN II-XII intact Psychiatric exam: Present: normal affect, normal mood Skin exam: Present: warm, dry, intact, normal color. Absent: rash Course Vital Signs 02/27/21 18:18 Temperature 98.6 F Pulse Rate 76 Respiratory 18 Rate Blood Pressure 124/82 O2 Sat by Pulse 100 Oximetry Medical Decision Making - Medical Decision Making 20-year-old female patient presents to the emergency department today for evaluation of nausea and back pain. Physical examination is unremarkable. Abdomen soft and nontender. Vital signs are unremarkable. Urinalysis is negative, she is not . Patient leaves her symptoms are related to sleep deprivation. She does want to go home without further testing. She is given Zofran. She is instructed to rest. She is given 2 days off of work. She is instructed to follow-up with her primary care physician for recheck in 1-2 days. Return parameters were discussed in detail. She verbalizes understanding and agrees with this plan. - Lab Data Lab Results 02/27/21 02/27/21 Range/Units 22:01 22:01 Urine Color Yellow Urine Appearance Clear (Clear) Urine pH 6.5 (5.0-8.0) Ur Specific [place] 1.017 (1.001-1.035) Urine Protein Negative (Negative) Urine Glucose (UA) Negative (Negative) Urine Ketones Negative (Negative) Urine Blood Negative (Negative) Urine Nitrite Negative (Negative) Urine Bilirubin Negative (Negative) Urine Urobilinogen <2.0 (<2.0) mg/dL Ur Leukocyte Esterase Small H (Negative) Urine RBC <1 (0-5) /hpf Urine WBC 2 (0-5) /hpf Ur Squamous Epith Cells 1 (0-4) /hpf Urine Bacteria Rare H (None) /hpf Urine Mucus Rare H (None) /hpf Urine HCG, Qual Not Detected (Not Detectd) Disposition Clinical Impression: Nausea Disposition: HOME SELF-CARE Condition: Good Instructions (If sedation given, give patient instructions): Acute Nausea and Vomiting (ED) Additional Instructions: Take Zofran every 6 hours as needed. Rest. Follow-up with her primary care physician for recheck in 1-2 days. Return for any new, worsening, or concerning symptoms. Is patient prescribed a controlled substance at d/c from ED?: No Referrals: James Pettit MD [Primary Care Provider] - 1-2 days Time of Disposition: 22:38
== END 2021-02-27 23:09 | disposition home or self-care (01) ==
LOC: EC 17:33
DX: R11.0 Nausea (principal); F41.9 Anxiety disorder, unspecified; F32.A Depression, unspecified; F17.290 Nicotine dependence, other tobacco product, uncomplicated
CPT/HCPCS: 99283; 81001; 81025; S0119

== ENCOUNTER → 2021-04-14 | Outpatient (CLI) | payer OTHER ==
--- NOTE | 2021-05-13 13:19 | EM ---
EVENT MONITOR Patient was monitored between April 14 and May 06, 2021. The rhythm strip revealed a sinus mechanism. There was no episode of atrial fibrillation or ventricular tachycardia. Symptoms of dizziness and lightheadedness did not correlate with any arrhythmia. Episodes of sinus tachycardia were noted. KARINA / KENN: [id number] /
== END | disposition home or self-care (01) ==
LOC: RADECHMAIN 11:16
PROVIDERS: ATTEND Pediatrics
DX: R00.0 Tachycardia, unspecified (principal)
CPT/HCPCS: 93270

== ENCOUNTER 2021-06-19 17:43 | Emergency (ER) | payer OTHER ==
[2021-06-19 18:00] VITALS: TEMP 98.9
--- NOTE | 2021-06-19 19:00 | ED ---
General Adult HPI - General Chief complaint: Fever Stated complaint: fever, lethargic Time Seen by Provider: 06/19/21 18:54 Source: patient Mode of arrival: ambulatory Limitations: no limitations - History of Present Illness Initial comments: Patient presents to the ED complaining of having intermittent left flank pain radiating to the left side of her abdomen, nausea, a fever, headaches and urinary frequency for the past 5 days or so. Patient states that she has been taking Tylenol and ibuprofen for management of her pain and fever, and she states that she last took a dose of ibuprofen about 3 hours ago. Patient admits to having a history of kidney stones. Patient states that she is fully vaccinated against Covid. Patient denies trauma or injury, focal neuro deficit, neck pain or stiffness, sore throat, cough or cold symptoms, chest pain, dyspnea, palpitations, dizziness, vomiting, diarrhea or constipation, dysuria, hematuria, or any other symptoms or complaints. - Related Data Home Medications Medication Instructions Recorded Confirmed medroxyPROGESTERone [Depo-Provera] 150 mg IM Q84D 01/10/21 06/19/21 Allergies Allergy/AdvReac Type Severity Reaction Status Date / Time No Known Allergies Allergy Verified 06/19/21 19:12 Review of Systems ROS Statement: Those systems with pertinent positive or pertinent negative responses have been documented in the HPI. ROS Other: All systems not noted in ROS Statement are negative. Past Medical History Past Medical History: No Reported History Additional Past Medical History / Comment(s): migraines History of Any Multi-Drug Resistant Organisms: None Reported Past Surgical History: No Surgical Hx Reported Past Anesthesia/Blood Transfusion Reactions: No Reported Reaction Past Psychological History: Anxiety, Depression Smoking Status: Vaper Past Alcohol Use History: Rare Past Drug Use History: None Reported - Past Family History Mother Family Medical History: No Reported History General Exam Limitations: no limitations General appearance: alert, in no apparent distress Head exam: Present: atraumatic, normocephalic Eye exam: Present: normal appearance, PERRL, EOMI ENT exam: Present: normal oropharynx, mucous membranes moist Neck exam: Present: other (Trachea is in midline; no nuchal rigidity or meningeal signs are present on examination). Absent: tenderness, meningismus Respiratory exam: Present: normal lung sounds bilaterally. Absent: respiratory distress, wheezes, rales, rhonchi, stridor Cardiovascular Exam: Present: regular rate, normal rhythm, normal heart sounds, other (Normal radial pulses bilaterally) GI/Abdominal exam: Present: soft. Absent: distended, tenderness, guarding Extremities exam: Absent: tenderness, pedal edema Back exam: Present: other (Mild left CVA tenderness) Neurological exam: Present: alert, oriented X3. Absent: motor sensory deficit Psychiatric exam: Present: normal affect, normal mood Skin exam: Present: warm, dry, intact, normal color Course Vital Signs 06/19/21 06/19/21 06/19/21 17:55 19:29 20:25 Temperature 98.9 F Pulse Rate 85 71 74 Respiratory 16 18 18 Rate Blood Pressure 115/68 136/34 130/68 O2 Sat by Pulse 99 100 100 Oximetry - Reevaluation(s) Reevaluation #1: 06/19/21 21:14 Patient remains alert and breathing comfortably. Patient continues to have a soft and nontender abdominal exam. Patient denies development of any new symptoms while in the ED. Patient is aware of her test results, and she feels comfortable being discharged home at this time. Patient was counseled about febrile illnesses/fever control, headaches, nausea and abdominal/flank pain. Patient was clearly explained return and follow-up instructions, and she was instructed to have a low threshold for return to the emergency department should her symptoms worsen. Patient was also instructed to follow up closely with her primary care provider. Patient feels comfortable with this plan. Medical Decision Making - Medical Decision Making A definite etiology of the patient's reported fever and symptoms is unclear at this time. Patient's Covid study is negative. Patient's UA is not suggestive of a UTI. Patient's CT abdomen/pelvis does not show an obstructing renal stone or any explanation for the patient's reported flank/abdominal pain. I suspect a possible viral infection. I do not suspect an emergent medical condition at this time. Will discharge patient home at this time. Patient feels comfortable with this plan. - Lab Data Result diagrams: 06/19/21 19:21 06/19/21 19:21 Lab Results 06/19/21 06/19/21 06/19/21 Range/Units 19:00 19:21 19:21 WBC 8.4 (3.8-10.6) k/uL RBC 4.82 (3.80-5.40) m/uL Hgb 14.2 (11.4-16.0) gm/dL Hct 42.5 (34.0-46.0) % MCV 88.2 (80.0-100.0) fL MCH 29.4 (25.0-35.0) pg MCHC 33.3 (31.0-37.0) g/dL RDW 13.1 (11.5-15.5) % Plt Count 243 (150-450) k/uL MPV 7.5 Neutrophils % 64 % Lymphocytes % 29 % Monocytes % 4 % Eosinophils % 1 % Basophils % 1 % Neutrophils # 5.4 (1.3-7.7) k/uL Lymphocytes # 2.5 (1.0-4.8) k/uL Monocytes # 0.4 (0-1.0) k/uL Eosinophils # 0.1 (0-0.7) k/uL Basophils # 0.1 (0-0.2) k/uL Sodium (137-145) mmol/L Potassium (3.5-5.1) mmol/L Chloride (98-107) mmol/L Carbon Dioxide (22-30) mmol/L Anion Gap mmol/L BUN (7-17) mg/dL Creatinine (0.52-1.04) mg/dL Est GFR (CKD-EPI)AfAm (>60 ml/min/1.73 sqM) Est GFR (CKD-EPI)NonAf (>60 ml/min/1.73 sqM) Glucose (74-99) mg/dL Calcium (8.4-10.2) mg/dL Total Bilirubin (0.2-1.3) mg/dL AST (14-36) U/L ALT (4-34) U/L Alkaline Phosphatase (38-126) U/L Total Protein (6.3-8.2) g/dL Albumin (3.5-5.0) g/dL Lipase (23-300) U/L HCG, Qual Urine Color Yellow Urine Appearance Cloudy H (Clear) Urine pH 6.0 (5.0-8.0) Ur Specific [place] 1.035 (1.001-1.035) Urine Protein 1+ H (Negative) Urine Glucose (UA) Negative (Negative) Urine Ketones Negative (Negative) Urine Blood Negative (Negative) Urine Nitrite Negative (Negative) Urine Bilirubin Negative (Negative) Urine Urobilinogen 2.0 (<2.0) mg/dL Ur Leukocyte Esterase Small H (Negative) Urine RBC 2 (0-5) /hpf Urine WBC 4 (0-5) /hpf Ur Squamous Epith Cells 22 H (0-4) /hpf Calcium Oxalate Crystal Rare H (None) /hpf Urine Bacteria Rare H (None) /hpf Urine Mucus Moderate H (None) /hpf Coronavirus (PCR) Not Detected (Not Detectd) 06/19/21 Range/Units 19:21 WBC (3.8-10.6) k/uL RBC (3.80-5.40) m/uL Hgb (11.4-16.0) gm/dL Hct (34.0-46.0) % MCV (80.0-100.0) fL MCH (25.0-35.0) pg MCHC (31.0-37.0) g/dL RDW (11.5-15.5) % Plt Count (150-450) k/uL MPV Neutrophils % % Lymphocytes % % Monocytes % % Eosinophils % % Basophils % % Neutrophils # (1.3-7.7) k/uL Lymphocytes # (1.0-4.8) k/uL Monocytes # (0-1.0) k/uL Eosinophils # (0-0.7) k/uL Basophils # (0-0.2) k/uL Sodium 137 (137-145) mmol/L Potassium 4.3 (3.5-5.1) mmol/L Chloride 104 (98-107) mmol/L Carbon Dioxide 22 (22-30) mmol/L Anion Gap 11 mmol/L BUN 13 (7-17) mg/dL Creatinine 0.72 (0.52-1.04) mg/dL Est GFR (CKD-EPI)AfAm >90 (>60 ml/min/1.73 sqM) Est GFR (CKD-EPI)NonAf >90 (>60 ml/min/1.73 sqM) Glucose 101 H (74-99) mg/dL Calcium 9.8 (8.4-10.2) mg/dL Total Bilirubin 0.6 (0.2-1.3) mg/dL AST 27 (14-36) U/L ALT 20 (4-34) U/L Alkaline Phosphatase 48 (38-126) U/L Total Protein 8.0 (6.3-8.2) g/dL Albumin 4.9 (3.5-5.0) g/dL Lipase 84 (23-300) U/L HCG, Qual Not Detected Urine Color Urine Appearance (Clear) Urine pH (5.0-8.0) Ur Specific [place] (1.001-1.035) Urine Protein (Negative) Urine Glucose (UA) (Negative) Urine Ketones (Negative) Urine Blood (Negative) Urine Nitrite (Negative) Urine Bilirubin (Negative) Urine Urobilinogen (<2.0) mg/dL Ur Leukocyte Esterase (Negative) Urine RBC (0-5) /hpf Urine WBC (0-5) /hpf Ur Squamous Epith Cells (0-4) /hpf Calcium Oxalate Crystal (None) /hpf Urine Bacteria (None) /hpf Urine Mucus (None) /hpf Coronavirus (PCR) (Not Detectd) - Radiology Data Noncontrast CT abdomen/pelvis: 1. No evidence of hydronephrosis, extrarenal pelvis bilaterally. Dilation of the mid and distal ureters is limited given the possibility of intraluminal bowel affect. 2. Right nonobstructing renal calculus. 3. Large stool burden throughout the colon. 4. Nonspecific prominent lymph nodes in the mesentery could relate to enteritis. Disposition Clinical Impression: Headache, Flank pain, Abdominal pain, Nausea Disposition: HOME SELF-CARE Condition: Stable Instructions (If sedation given, give patient instructions): Fever in Adults (ED), Acute Headache (ED), Acute Abdominal Pain (ED), Flank Pain (ED) Additional Instructions: Return to the ER immediately should you develop new or worsening pain, persistent vomiting, a high fever, feeling dizzy or faint, shortness of breath, or new or worsening symptoms. Follow up closely with your primary care provider. Is patient prescribed a controlled substance at d/c from ED?: No Referrals: James Pettit MD [Primary Care Provider] - 1-2 days Time of Disposition: 21:17
[2021-06-19 19:31] VITALS: RESP 18
[2021-06-19 19:45] LABS: Basophils # (A) 0.1 k/uL (0-0.2); Basophils % (A) 1 %; Eosinophils # (A) 0.1 k/uL (0-0.7); Eosinophils % (A) 1 %; HCT 42.5 % (34.0-46.0); HGB 14.2 gm/dL (11.4-16.0); Lymphocytes # (A) 2.5 k/uL (1.0-4.8); Lymphocytes % (A) 29 %; MCH 29.4 pg (25.0-35.0); MCHC 33.3 g/dL (31.0-37.0); MCV 88.2 fL (80.0-100.0); Mean Platelet Volume 7.5; Monocytes # (A) 0.4 k/uL (0-1.0); Monocytes % (A) 4 %; Neutrophils # (A) 5.4 k/uL (1.3-7.7); Neutrophils % (A) 64 %; Platelet Count 243 k/uL (150-450); RBC 4.82 m/uL (3.80-5.40); RDW 13.1 % (11.5-15.5); WBC 8.4 k/uL (3.8-10.6)
[2021-06-19 19:50] LABS: Appearance,Urine Cloudy (Clear); Bacteria,Urine Rare /hpf; Bilirubin,Urine Negative (Negative); Blood,Urine Negative (Negative); Calcium Oxalate Crystals,Urine Rare /hpf; Color,Urine Yellow; Glucose,Urine (UA) Negative (Negative); Ketones,Urine Negative (Negative); Leukocyte Esterase,Urine Small (Negative); Mucus,Urine Moderate /hpf; Nitrite,Urine Negative (Negative); Protein,Urine 1+ (Negative); RBC,Urine 2 /hpf (0-5); Specific Gravity,Urine 1.035 (1.001-1.035); Squamous Epithelial Cell,Urine 22 /hpf (0-4); WBC,Urine 4 /hpf (0-5)
[2021-06-19 19:55] LABS: ALT 20 U/L (4-34); AST 27 U/L (14-36); African American GFR (CKD) >90 (>60 ml/min/1.73 sqM); Albumin 4.9 g/dL (3.5-5.0); Alkaline Phosphatase 48 U/L (38-126); Anion Gap 11 mmol/L; Blood Urea Nitrogen 13 mg/dL (7-17); Calcium 9.8 mg/dL (8.4-10.2); Carbon Dioxide 22 mmol/L (22-30); Chloride 104 mmol/L (98-107); Glucose 101 mg/dL (74-99); HCG,Qualitative Serum Not Detected; Lipase 84 U/L (23-300); Non-African American GFR(CKD) >90 (>60 ml/min/1.73 sqM); Sodium 137 mmol/L (137-145); Total Bilirubin 0.6 mg/dL (0.2-1.3)
[2021-06-19 20:02] LABS: Potassium 4.3 mmol/L (3.5-5.1)
--- NOTE | 2021-06-19 20:54 | CT ---
EXAMINATION TYPE: CT abdomen pelvis wo con CT DLP: 261.5 mGycm, Automated exposure control for dose reduction was used. DATE OF EXAM: 06/19/2021 8:35 PM COMPARISON: None. CLINICAL INDICATION:Female, 20 years old with history of Left flank pain, nausea; LEFT FLANK PIAN TECHNIQUE: Standard CT of the abdomen and pelvis without IV or oral contrast. Lack of IV or oral co ntrast limits evaluation of solid and hollow organ viscera. Coronal and sagittal reformats were perfo rmed. FINDINGS: LOWER CHEST: Unremarkable ABDOMEN LIVER: Unremarkable GALLBLADDER AND BILE DUCTS: Unremarkable. PANCREAS: Unremarkable. SPLEEN: Unremarkable. ADRENAL GLANDS: Unremarkable. KIDNEYS AND URETERS: Nonobstructive 3 mm right renal calculus. There is bilateral extrarenal pelves. Evaluation of the distal ureters is limited by paucity of abdominal fat. PELVIS BLADDER: Unremarkable REPRODUCTIVE: Unremarkable. ABDOMEN & PELVIS STOMACH AND BOWEL: There is a large stool burden throughout the colon. No evidence of bowel obstructi on. The appendix is visualized and normal. PERITONEUM: Trace fluid is seen within the pelvis, no evidence of pneumoperitoneum. VASCULATURE: No evidence of aortic aneurysm. MUSCULOSKELETAL: No acute osseous abnormalities LYMPH NODES: No gross evidence for lymphadenopathy. SOFT TISSUE/ABDOMINAL WALL: Unremarkable IMPRESSION: 1. No evidence of hydronephrosis, extrarenal pelves bilaterally. Dilation of the mid and distal uret ers is limited given the paucity of intraluminal bowel fat. 2. Right nonobstructing renal calculus. 3. Large stool burden throughout the colon. 4. Nonspecific prominent lymph nodes in the mesentery could relate to enteritis.
[2021-06-19 21:19] VITALS: BP 119/68; PULSE 77
== END 2021-06-19 21:37 | disposition home or self-care (01) ==
LOC: EC 17:43
DX: R51.9 Headache, unspecified (principal); R10.9 Unspecified abdominal pain; R11.0 Nausea; Z20.822 Contact with and (suspected) exposure to COVID-19; F17.290 Nicotine dependence, other tobacco product, uncomplicated
CPT/HCPCS: 36415; 74176; 80053; 81001; 83690; 84703; 85025; 87635; 99284

== ENCOUNTER 2021-08-27 04:10 | Emergency (ER) | payer OTHER ==
[2021-08-27 04:37] VITALS: RESP 18
--- NOTE | 2021-08-27 05:33 | ED ---
Extremity Problem HPI - General Chief complaint: Extremity Problem,Nontraumatic Stated complaint: Left Foot Injury and numbness Time Seen by Provider: 08/27/21 04:44 Source: patient Mode of arrival: ambulatory - History of Present Illness Initial comments: This patient is 20-year-old woman who presents to have evaluation of her left foot. She states that she had an injury to the foot a little over a year ago. The patient states she was recently put into physical therapy and now is having some pins and needle sensation to the foot. No recent trauma. MD Complaint: extremity pain -: days(s) Location: left, lower extremity Radiation: none Quality: other (Pins and needles) Consistency: constant Improves with: nothing Worsens with: walking Associated Symptoms: denies other symptoms - Related Data Home Medications Medication Instructions Recorded Confirmed medroxyPROGESTERone [Depo-Provera] 150 mg IM Q84D 01/10/21 06/19/21 Previous Rx's Medication Instructions Recorded Acetaminophen [Tylenol] 500 mg PO Q4-6H PRN #24 tab 08/19/21 Ibuprofen [Motrin] 600 mg PO Q8HR PRN #30 tab 08/19/21 Penicillin V Potassium [Pen Vee K] 500 mg PO QID #36 tablet 08/19/21 Allergies Allergy/AdvReac Type Severity Reaction Status Date / Time No Known Allergies Allergy Verified 09/09/21 22:42 Review of Systems ROS Statement: Those systems with pertinent positive or pertinent negative responses have been documented in the HPI. ROS Other: All systems not noted in ROS Statement are negative. Constitutional: Denies: fever, chills Skin: Denies: rash Neurological: Reports: paresthesias. Denies: weakness, numbness Past Medical History Past Medical History: No Reported History Additional Past Medical History / Comment(s): migraines History of Any Multi-Drug Resistant Organisms: None Reported Past Surgical History: No Surgical Hx Reported Past Anesthesia/Blood Transfusion Reactions: No Reported Reaction Past Psychological History: Anxiety, Depression Smoking Status: Vaper Past Alcohol Use History: Rare Past Drug Use History: None Reported - Past Family History Mother Family Medical History: No Reported History General Exam General appearance: alert, in no apparent distress Extremities exam: Present: normal inspection, full ROM, tenderness, normal capillary refill. Absent: pedal edema, calf tenderness Back exam: Present: normal inspection. Absent: vertebral tenderness Neurological exam: Present: alert. Absent: motor sensory deficit Skin exam: Present: warm, dry, intact, normal color. Absent: rash Course Vital Signs 08/27/21 08/27/21 04:32 05:36 Temperature 98.6 F 98 F Pulse Rate 86 71 Respiratory 18 18 Rate Blood Pressure 108/68 103/64 O2 Sat by Pulse 98 100 Oximetry Medical Decision Making - Medical Decision Making Patient's 20-year-old woman with paresthesias to the foot following physical therapy. Did recommend follow-up with neurology for EMG testing. Discussed appropriate further care and follow-up. Disposition Clinical Impression: Paresthesia Disposition: HOME SELF-CARE Condition: Good Instructions (If sedation given, give patient instructions): Paresthesia (ED) Is patient prescribed a controlled substance at d/c from ED?: No Referrals: James Pettit MD [Primary Care Provider] - 1-2 days Consuelo White MD [STAFF PHYSICIAN] - 1-2 days
[2021-08-27 05:41] VITALS: BP 103/64; PULSE 71; TEMP 98
== END 2021-08-27 05:42 | disposition home or self-care (01) ==
LOC: EC 04:10
DX: R20.2 Paresthesia of skin (principal); F17.209 Nicotine dependence, unspecified, with unspecified nicotine-induced disorders
CPT/HCPCS: 99283

== ENCOUNTER 2021-09-09 22:28 | Emergency (ER) | payer OTHER ==
[2021-09-09 22:42] VITALS: BP 113/73; PULSE 86; RESP 16; TEMP 98.3
== END 2021-09-09 23:43 | disposition left against medical advice (07) ==
LOC: EC 22:28
DX: Z53.21 Procedure and treatment not carried out due to patient leaving prior to being seen by health care provider (principal); U07.1 COVID-19
CPT/HCPCS: 87635

== ENCOUNTER → 2021-09-30 | Outpatient (CLI) | payer OTHER ==
--- NOTE | 2021-10-01 04:14 | MR ---
EXAMINATION TYPE: MR ankle LT wo con DATE OF EXAM: 09/30/2021 COMPARISON: None HISTORY: Ankle pain. Multiplanar multi echo imaging of the left ankle with no contrast. The distal tibia and fibula appear intact. Talus and calcaneus appear intact. No fracture seen. No ev idence of any significant bone edema. The Achilles tendon is intact. The plantar fascia appears intac t. Medial and lateral collateral ligaments appear intact. The medial and lateral flexor tendons of th e ankle appear intact. There is slight increased ankle joint fluid. IMPRESSION: There is minimal ankle joint effusion consistent with some mild synovitis. Otherwise negative exam. N o evidence of ligament or tendon tear. No fracture.
== END | disposition home or self-care (01) ==
LOC: RADMRIMAIN 17:02
PROVIDERS: ATTEND Pediatrics
DX: M25.472 Effusion, left ankle (principal)

== ENCOUNTER 2021-10-01 14:49 | Emergency (ER) | payer OTHER ==
[2021-10-01 14:54] VITALS: BP 106/69; PULSE 88; RESP 22; TEMP 98.7
--- NOTE | 2021-10-01 15:26 | ED ---
General Adult HPI <Bal Fofanai - Last Filed: 10/01/21 16:29> - General Source: patient Mode of arrival: ambulatory Limitations: no limitations <DomingosamuelTodd Damion - Last Filed: 10/01/21 16:38> - General Chief complaint: Abdominal Pain Stated complaint: Weakness,Dizziness,Nausea Time Seen by Provider: 10/01/21 15:04 - History of Present Illness Initial comments: Dictation was produced using [employer] dictation software. please excuse any grammatical, word or spelling errors. Chief Complaint: 20-year-old female presents to the ER for multiple complaints. History of Present Illness: She is a 20-year-old female she presents to the emergency room for multiple complaints. Patient states she has lower back pain. She states that she has persistent vaginal discharge on over the last month. Patient is been on Flagyl for the last 4 days states that her symptoms not really improving. She complains of lower back pain is worse with walking and standing. She told triage that she has left flank pain that radiates to the abdomen. Patient states that she has vague umbilical tenderness with palpation. She's been having poor appetite nausea the last several weeks. The ROS documented in this emergency department record has been reviewed and confirmed by me. Those systems with pertinent positive or negative responses have been documented in the HPI. All other systems are other negative and/or noncontributory. PHYSICAL EXAM: General Impression: Alert and oriented x3, not in acute distress HEENT: Normocephalic atraumatic, extra-ocular movements intact, pupils equal and reactive to light bilaterally, mucous membranes moist. Cardiovascular: Heart regular rate and rhythm Chest: Able to complete full sentences, no retractions, no tachypnea Abdomen: abdomen soft, non-tender, non-distended, no organomegaly Musculoskeletal: Pulses present and equal in all extremities, no peripheral edema Motor: no focal deficits noted Neurological: CN II-XII grossly intact, no focal motor or sensory deficits noted Skin: Intact with no visualized rashes Psych: Normal affect and mood ED course: 20-year-old female presents to the emergency department for multiple complaints. Patient's primary complaints are back pain that seemed to be musculoskeletal, nausea and poor appetite and vaginal discharge. Patient has had chronic yellow discharge. She states that she's been on Flagyl for 4 days with no changes in her symptoms. Signs upon arrival are within acceptable limits. Patient states she was recently tested for sexually transmitted disease and those tests were negative. Laboratory evaluation obtained. CBC, metabolic panel is unremarkable. Urinalysis shows 10 white blood cells. Pending urine culture. Patient did not fill comfortable with the male performing pelvic exam. Pelvic exam was performed by nurse practitioner, Shaun Fofana who reports that pelvic exam was un remarkable. Patient be discharged advised follow-up with primary care doctor. At this point no high-risk features. Patient agreeable with plan and disposition. Patient's back symptoms likely secondary to back strain. (Todd Rendon) - Related Data Home Medications Medication Instructions Recorded Confirmed medroxyPROGESTERone [Depo-Provera] 150 mg IM Q84D 01/10/21 06/19/21 Previous Rx's Medication Instructions Recorded Acetaminophen [Tylenol] 500 mg PO Q4-6H PRN #24 tab 08/19/21 Ibuprofen [Motrin] 600 mg PO Q8HR PRN #30 tab 08/19/21 Penicillin V Potassium [Pen Vee K] 500 mg PO QID #36 tablet 08/19/21 Allergies Allergy/AdvReac Type Severity Reaction Status Date / Time No Known Allergies Allergy Verified 09/09/21 22:42 Review of Systems ROS Other: All systems not noted in ROS Statement are negative. <Shaun Fofana - Last Filed: 10/01/21 16:29> ROS Other: All systems not noted in ROS Statement are negative. <Todd Rendon - Last Filed: 10/01/21 16:38> ROS Statement: Those systems with pertinent positive or pertinent negative responses have been documented in the HPI. Past Medical History Past Medical History: No Reported History Additional Past Medical History / Comment(s): migraines History of Any Multi-Drug Resistant Organisms: None Reported Past Surgical History: No Surgical Hx Reported Past Anesthesia/Blood Transfusion Reactions: No Reported Reaction Past Psychological History: Anxiety, Depression Smoking Status: Vaper Past Alcohol Use History: Rare Past Drug Use History: None Reported - Past Family History Mother Family Medical History: No Reported History <Todd Rendon - Last Filed: 10/01/21 16:38> General Exam External exam: Absent: erythema, swelling, lacerations, ecchymosis Speculum exam: Present: normal speculum exam, vaginal discharge (white watery), cervical discharge. Absent: erythema, vaginal bleeding, foreign body, tissue, laceration By manual exam: Present: normal by manual exam, adnexal tenderness (left - minimal). Absent: cervical motion tenderness, adnexal mass <Shaun Fofana - Last Filed: 10/01/21 16:29> Limitations: no limitations <Todd Rendon - Last Filed: 10/01/21 16:38> Course Vital Signs 10/01/21 14:50 Temperature 98.7 F Pulse Rate 88 Respiratory 22 Rate Blood Pressure 106/69 O2 Sat by Pulse 98 Oximetry Medical Decision Making - Lab Data Result diagrams: 10/01/21 15:40 10/01/21 15:40 <Shaun Fofana - Last Filed: 10/01/21 16:29> - Lab Data Result diagrams: 10/01/21 15:40 10/01/21 15:40 <Todd Rendon - Last Filed: 10/01/21 16:38> - Lab Data Lab Results 10/01/21 10/01/21 10/01/21 Range/Units 15:40 15:40 15:40 WBC 5.3 (3.8-10.6) k/uL RBC 4.52 (3.80-5.40) m/uL Hgb 13.3 (11.4-16.0) gm/dL Hct 40.2 (34.0-46.0) % MCV 88.9 (80.0-100.0) fL MCH 29.5 (25.0-35.0) pg MCHC 33.2 (31.0-37.0) g/dL RDW 13.0 (11.5-15.5) % Plt Count 228 (150-450) k/uL MPV 7.3 Neutrophils % 53 % Lymphocytes % 36 % Monocytes % 7 % Eosinophils % 1 % Basophils % 2 % Neutrophils # 2.8 (1.3-7.7) k/uL Lymphocytes # 1.9 (1.0-4.8) k/uL Monocytes # 0.4 (0-1.0) k/uL Eosinophils # 0.1 (0-0.7) k/uL Basophils # 0.1 (0-0.2) k/uL Sodium (137-145) mmol/L Potassium (3.5-5.1) mmol/L Chloride (98-107) mmol/L Carbon Dioxide (22-30) mmol/L Anion Gap mmol/L BUN (7-17) mg/dL Creatinine (0.52-1.04) mg/dL Est GFR (CKD-EPI)AfAm (>60 ml/min/1.73 sqM) Est GFR (CKD-EPI)NonAf (>60 ml/min/1.73 sqM) Glucose (74-99) mg/dL Calcium (8.4-10.2) mg/dL Magnesium (1.6-2.3) mg/dL Total Bilirubin (0.2-1.3) mg/dL AST (14-36) U/L ALT (4-34) U/L Alkaline Phosphatase (38-126) U/L Total Protein (6.3-8.2) g/dL Albumin (3.5-5.0) g/dL Urine Color Yellow Urine Appearance Clear (Clear) Urine pH 6.5 (5.0-8.0) Ur Specific [place] 1.015 (1.001-1.035) Urine Protein Negative (Negative) Urine Glucose (UA) Negative (Negative) Urine Ketones Negative (Negative) Urine Blood Negative (Negative) Urine Nitrite Negative (Negative) Urine Bilirubin Negative (Negative) Urine Urobilinogen <2.0 (<2.0) mg/dL Ur Leukocyte Esterase Large H (Negative) Urine RBC 2 (0-5) /hpf Urine WBC 10 H (0-5) /hpf Ur Squamous Epith Cells 7 H (0-4) /hpf Urine Bacteria Rare H (None) /hpf Urine Mucus Rare H (None) /hpf Urine HCG, Qual Not Detected (Not Detectd) 10/01/21 Range/Units 15:40 WBC (3.8-10.6) k/uL RBC (3.80-5.40) m/uL Hgb (11.4-16.0) gm/dL Hct (34.0-46.0) % MCV (80.0-100.0) fL MCH (25.0-35.0) pg MCHC (31.0-37.0) g/dL RDW (11.5-15.5) % Plt Count (150-450) k/uL MPV Neutrophils % % Lymphocytes % % Monocytes % % Eosinophils % % Basophils % % Neutrophils # (1.3-7.7) k/uL Lymphocytes # (1.0-4.8) k/uL Monocytes # (0-1.0) k/uL Eosinophils # (0-0.7) k/uL Basophils # (0-0.2) k/uL Sodium 140 (137-145) mmol/L Potassium 4.3 (3.5-5.1) mmol/L Chloride 107 (98-107) mmol/L Carbon Dioxide 24 (22-30) mmol/L Anion Gap 9 mmol/L BUN 12 (7-17) mg/dL Creatinine 0.85 (0.52-1.04) mg/dL Est GFR (CKD-EPI)AfAm >90 (>60 ml/min/1.73 sqM) Est GFR (CKD-EPI)NonAf >90 (>60 ml/min/1.73 sqM) Glucose 85 (74-99) mg/dL Calcium 9.6 (8.4-10.2) mg/dL Magnesium 1.9 (1.6-2.3) mg/dL Total Bilirubin 0.3 (0.2-1.3) mg/dL AST 24 (14-36) U/L ALT 17 (4-34) U/L Alkaline Phosphatase 57 (38-126) U/L Total Protein 7.4 (6.3-8.2) g/dL Albumin 4.7 (3.5-5.0) g/dL Urine Color Urine Appearance (Clear) Urine pH (5.0-8.0) Ur Specific [place] (1.001-1.035) Urine Protein (Negative) Urine Glucose (UA) (Negative) Urine Ketones (Negative) Urine Blood (Negative) Urine Nitrite (Negative) Urine Bilirubin (Negative) Urine Urobilinogen (<2.0) mg/dL Ur Leukocyte Esterase (Negative) Urine RBC (0-5) /hpf Urine WBC (0-5) /hpf Ur Squamous Epith Cells (0-4) /hpf Urine Bacteria (None) /hpf Urine Mucus (None) /hpf Urine HCG, Qual (Not Detectd) Disposition <Shaun Fofana - Last Filed: 10/01/21 16:29> Is patient prescribed a controlled substance at d/c from ED?: No Time of Disposition: 16:38 <Todd Rendon - Last Filed: 10/01/21 16:38> Clinical Impression: Back strain Disposition: HOME SELF-CARE Condition: Good Instructions (If sedation given, give patient instructions): Low Back Strain (ED) Referrals: James Pettit MD [Primary Care Provider] - 1-2 days
[2021-10-01 15:52] LABS: Basophils # (A) 0.1 k/uL (0-0.2); Basophils % (A) 2 %; Eosinophils # (A) 0.1 k/uL (0-0.7); Eosinophils % (A) 1 %; HCT 40.2 % (34.0-46.0); HGB 13.3 gm/dL (11.4-16.0); Lymphocytes # (A) 1.9 k/uL (1.0-4.8); Lymphocytes % (A) 36 %; MCH 29.5 pg (25.0-35.0); MCHC 33.2 g/dL (31.0-37.0); MCV 88.9 fL (80.0-100.0); Mean Platelet Volume 7.3; Monocytes # (A) 0.4 k/uL (0-1.0); Monocytes % (A) 7 %; Neutrophils # (A) 2.8 k/uL (1.3-7.7); Neutrophils % (A) 53 %; Platelet Count 228 k/uL (150-450); RBC 4.52 m/uL (3.80-5.40); WBC 5.3 k/uL (3.8-10.6)
[2021-10-01 15:58] LABS: Appearance,Urine Clear (Clear); Bacteria,Urine Rare /hpf; Bilirubin,Urine Negative (Negative); Blood,Urine Negative (Negative); Color,Urine Yellow; Glucose,Urine (UA) Negative (Negative); Ketones,Urine Negative (Negative); Leukocyte Esterase,Urine Large (Negative); Mucus,Urine Rare /hpf; Nitrite,Urine Negative (Negative); PH, Urine 6.5 (5.0-8.0); Protein,Urine Negative (Negative); RBC,Urine 2 /hpf (0-5); Specific Gravity,Urine 1.015 (1.001-1.035); Squamous Epithelial Cell,Urine 7 /hpf (0-4); Urobilinogen,Urine <2.0 mg/dL (<2.0); WBC,Urine 10 /hpf (0-5)
[2021-10-01 16:07] LABS: ALT 17 U/L (4-34); AST 24 U/L (14-36); African American GFR (CKD) >90 (>60 ml/min/1.73 sqM); Albumin 4.7 g/dL (3.5-5.0); Alkaline Phosphatase 57 U/L (38-126); Anion Gap 9 mmol/L; Blood Urea Nitrogen 12 mg/dL (7-17); Calcium 9.6 mg/dL (8.4-10.2); Carbon Dioxide 24 mmol/L (22-30); Chloride 107 mmol/L (98-107); Glucose 85 mg/dL (74-99); Magnesium 1.9 mg/dL (1.6-2.3); Non-African American GFR(CKD) >90 (>60 ml/min/1.73 sqM); Potassium 4.3 mmol/L (3.5-5.1); Sodium 140 mmol/L (137-145); Total Bilirubin 0.3 mg/dL (0.2-1.3); Total Protein 7.4 g/dL (6.3-8.2)
== END 2021-10-01 16:47 | disposition home or self-care (01) ==
LOC: EC 14:49
DX: S39.012A Strain of muscle, fascia and tendon of lower back, initial encounter (principal); F17.290 Nicotine dependence, other tobacco product, uncomplicated; X58.XXXA Exposure to other specified factors, initial encounter
CPT/HCPCS: 36415; 80053; 81001; 81025; 83735; 85025; 99283

== ENCOUNTER → 2021-12-22 | Outpatient (CLI) | payer BC, OTHER ==
--- NOTE | 2021-12-23 06:24 | US ---
EXAMINATION TYPE: US abdomen complete DATE OF EXAM: 12/22/2021 COMPARISON: CT abdomen and pelvis June 19, 2021 CLINICAL HISTORY: R10.31 R10.32 R10.11. Generalized pain. TECHNIQUE: Multiple sonographic images of the abdomen are obtained. FINDINGS: EXAM MEASUREMENTS: Liver Length: 14.5 cm Gallbladder Wall: 0.1 cm CBD: 0.2 cm Spleen: 9.6 cm Right Kidney: 9.1 x 4.1 x 2.9 cm Left Kidney: 10.7 x 3.7x 3.2 cm Pancreas: wnl Liver: wnl Gallbladder: folds seen Evidence for sonographic Dumont's sign: neg CBD: wnl Spleen: wnl Right Kidney: medial anechoic lesion = 1.3 x 0.7 cm Left Kidney: medial anechoic lesion = 1.3 x 0.9 cm Upper IVC: wnl Abd Aorta: No AAA visualized at time of scan. The liver is homogenous. The intrahepatic portion of the IVC and visualized proximal, mid, and dista l abdominal aorta are within normal limits. There is no evidence of shadowing mobile cholelithiasis. Common bile duct is within normal limits. The visualized portions of the pancreas are homogenous. The spleen is unremarkable. Prominent left renal pelvis marked by technologist without calyceal dila tation. Right kidney shows mild hydronephrosis though this appears less prominent from prior CT. Prio r 3 mm nonobstructive lower pole right renal calculus on CT not clearly seen on ultrasound. IMPRESSION: Mild right-sided hydronephrosis is felt present, this is thought improved from prior CT. No acute findings otherwise seen.
--- NOTE | 2021-12-23 06:25 | US ---
EXAMINATION TYPE: US pelvic complete DATE OF EXAM: 12/22/2021 COMPARISON: CT abdomen and pelvis June 19, 2021 CLINICAL HISTORY: R10.31 R10.32 R10.11. Generalized pelvic pain. On depo shot- unknown LMP TECHNIQUE: Transabdominal (TA). Transabdominal sonographic images of the pelvis were acquired. Date of LMP: Unknown, EXAM MEASUREMENTS: Uterus: 7.1 x 5.6 x 3.6 cm Endometrial Stripe: 0.3 cm Right Ovary: 2.5 x 1.3 x 1.5cm Left Ovary: 2.6 x 1.5 x 2.2 cm 1. Uterus: Anteverted wnl 2. Endometrium: wnl 3. Right Ovary: wnl 4. Left Ovary: wnl 5. Bilateral Adnexa: wnl 6. Posterior cul-de-sac: no free fluid Anteverted uterus redemonstrated. Endometrial stripe measures 3 mm which is within normal limits for proliferative phase of menstrual cycle, correlate clinically. No free fluid in pelvic cul-de-sac. Ovaries symmetric and within normal limits in size. No suspicious adnexal masses are present bilatera lly. IMPRESSION: No acute findings are evident.
== END | disposition home or self-care (01) ==
LOC: RADUSWWP 15:23
PROVIDERS: ATTEND Pediatrics
DX: N13.30 Unspecified hydronephrosis (principal)
CPT/HCPCS: 76700; 76856

== ENCOUNTER 2022-01-28 20:49 | Emergency (ER) | payer BC, OTHER ==
[2022-01-28 21:49] VITALS: TEMP 98.3
[2022-01-28 22:11] LABS: Basophils % (A) 1 %; Eosinophils # (A) 0.1 k/uL (0-0.7); Eosinophils % (A) 2 %; HCT 36.4 % (34.0-46.0); HGB 12.4 gm/dL (11.4-16.0); Lymphocytes # (A) 2.7 k/uL (1.0-4.8); Lymphocytes % (A) 47 %; MCH 29.7 pg (25.0-35.0); MCHC 34.2 g/dL (31.0-37.0); MCV 86.9 fL (80.0-100.0); Mean Platelet Volume 7.9; Monocytes # (A) 0.3 k/uL (0-1.0); Monocytes % (A) 6 %; Neutrophils # (A) 2.4 k/uL (1.3-7.7); Neutrophils % (A) 42 %; Platelet Count 215 k/uL (150-450); RBC 4.19 m/uL (3.80-5.40); RDW 13.4 % (11.5-15.5); WBC 5.7 k/uL (3.8-10.6)
[2022-01-28 22:21] LABS: ALT 18 U/L (4-34); AST 21 U/L (14-36); African American GFR (CKD) >90 (>60 ml/min/1.73 sqM); Albumin 4.9 g/dL (3.5-5.0); Alkaline Phosphatase 51 U/L (38-126); Anion Gap 12 mmol/L; Blood Urea Nitrogen 11 mg/dL (7-17); Calcium 9.4 mg/dL (8.4-10.2); Carbon Dioxide 25 mmol/L (22-30); Chloride 103 mmol/L (98-107); Glucose 95 mg/dL (74-99); Non-African American GFR(CKD) >90 (>60 ml/min/1.73 sqM); Potassium 4.2 mmol/L (3.5-5.1); Sodium 140 mmol/L (137-145); Total Bilirubin 0.4 mg/dL (0.2-1.3); Total Protein 7.2 g/dL (6.3-8.2)
[2022-01-28 23:04] LABS: Appearance,Urine Clear (Clear); Bilirubin,Urine Negative (Negative); Blood,Urine Negative (Negative); Color,Urine Colorless; Glucose,Urine (UA) Negative (Negative); Ketones,Urine Negative (Negative); Leukocyte Esterase,Urine Negative (Negative); Nitrite,Urine Negative (Negative); Protein,Urine Negative (Negative); Specific Gravity,Urine 1.002 (1.001-1.035); Urobilinogen,Urine <2.0 mg/dL (<2.0)
[2022-01-28] MEDS ORDERED: DICYCLOMINE 10 MG/ML 2 ML AMP IM STA (23:57)
--- NOTE | 2022-01-29 00:01 | ED ---
General Adult HPI - General Chief complaint: Urogenital Stated complaint: ABD Pain Time Seen by Provider: 01/28/22 23:46 Source: patient, RN notes reviewed, old records reviewed Mode of arrival: ambulatory - History of Present Illness Initial comments: 21-year-old female presents to the emergency room with complaints of abdominal bloating and discomfort radiating to her back. Patient states she was treated for urinary tract infection at urgent care last Tuesday and finished her antibiotics. She returned on Tuesday for continued abdominal pain and bloating and they prescribed her Keflex however she has not started taking it. She states that she is on Depo-Provera, not sexually active and no concern for sexually transmitted infections. Denies any fevers no nausea vomiting or diarrhea. -: week(s) (3) Location: abdomen Radiation: back Severity scale (1-10): 8 Treatments Prior to Arrival: other (antibiotics) - Related Data Home Medications Medication Instructions Recorded Confirmed medroxyPROGESTERone [Depo-Provera] 150 mg IM Q84D 01/10/21 06/19/21 Previous Rx's Medication Instructions Recorded Acetaminophen [Tylenol] 500 mg PO Q4-6H PRN #24 tab 08/19/21 Ibuprofen [Motrin] 600 mg PO Q8HR PRN #30 tab 08/19/21 Penicillin V Potassium [Pen Vee K] 500 mg PO QID #36 tablet 08/19/21 Dicyclomine [Bentyl] 20 mg PO TID #30 tablet 01/29/22 Allergies Allergy/AdvReac Type Severity Reaction Status Date / Time No Known Allergies Allergy Verified 12/01/21 01:00 Review of Systems ROS Statement: Those systems with pertinent positive or pertinent negative responses have been documented in the HPI. ROS Other: All systems not noted in ROS Statement are negative. Past Medical History Past Medical History: No Reported History Additional Past Medical History / Comment(s): migraines History of Any Multi-Drug Resistant Organisms: None Reported Past Surgical History: No Surgical Hx Reported Past Anesthesia/Blood Transfusion Reactions: No Reported Reaction Past Psychological History: Anxiety, Depression Smoking Status: Vaper Past Alcohol Use History: Rare Past Drug Use History: None Reported - Past Family History Mother Family Medical History: No Reported History General Exam Limitations: no limitations General appearance: alert, in no apparent distress Eye exam: Present: normal appearance. Absent: scleral icterus, conjunctival injection, periorbital swelling Neck exam: Absent: meningismus Respiratory exam: Present: normal lung sounds bilaterally. Absent: respiratory distress, wheezes, rales, rhonchi, stridor, chest wall tenderness, accessory muscle use Cardiovascular Exam: Present: regular rate GI/Abdominal exam: Present: soft, tenderness (diffuse). Absent: distended, guarding, rebound, rigid Extremities exam: Present: full ROM, normal capillary refill. Absent: tenderness, pedal edema, calf tenderness Back exam: Present: normal inspection. Absent: tenderness, CVA tenderness (R), CVA tenderness (L), rash noted Neurological exam: Present: alert, oriented X3, normal gait Psychiatric exam: Present: normal affect, normal mood Skin exam: Present: warm, dry, normal color. Absent: cyanosis, diaphoretic, petechiae, pallor Course Vital Signs 01/28/22 01/29/22 21:45 00:43 Temperature 98.3 F Pulse Rate 64 79 Respiratory 18 16 Rate Blood Pressure 100/64 114/64 O2 Sat by Pulse 98 98 Oximetry Medical Decision Making - Medical Decision Making Patient was treated for urinary tract infection and finished antibiotics last Tuesday. Presents today with abdominal bloating and low back pain. Denies any nausea vomiting diarrhea or fevers. Vital signs are stable. CBC, BMP and UA unremarkable. Negative for . Patient states not sexually active. Patient describes her abdominal discomfort as bloating. On physical exam she is minimally tender diffusely. No rebound tenderness. No right lower quadrant pain. Patient's symptoms may be related to recent antibiotic use versus intestinal cramping. Patient was prescribed Bentyl in trial and directed to follow up with her primary care doctor. She is also given a referral to gastroenterology. She is agreeable to this plan of care. Case discussed with Dr. Gordon - Lab Data Result diagrams: 01/28/22 21:50 01/28/22 21:50 Lab Results 01/28/22 01/28/22 01/28/22 Range/Units 21:50 21:50 22:22 WBC 5.7 (3.8-10.6) k/uL RBC 4.19 (3.80-5.40) m/uL Hgb 12.4 (11.4-16.0) gm/dL Hct 36.4 (34.0-46.0) % MCV 86.9 (80.0-100.0) fL MCH 29.7 (25.0-35.0) pg MCHC 34.2 (31.0-37.0) g/dL RDW 13.4 (11.5-15.5) % Plt Count 215 (150-450) k/uL MPV 7.9 Neutrophils % 42 % Lymphocytes % 47 % Monocytes % 6 % Eosinophils % 2 % Basophils % 1 % Neutrophils # 2.4 (1.3-7.7) k/uL Lymphocytes # 2.7 (1.0-4.8) k/uL Monocytes # 0.3 (0-1.0) k/uL Eosinophils # 0.1 (0-0.7) k/uL Basophils # 0.0 (0-0.2) k/uL Sodium 140 (137-145) mmol/L Potassium 4.2 (3.5-5.1) mmol/L Chloride 103 (98-107) mmol/L Carbon Dioxide 25 (22-30) mmol/L Anion Gap 12 mmol/L BUN 11 (7-17) mg/dL Creatinine 0.77 (0.52-1.04) mg/dL Est GFR (CKD-EPI)AfAm >90 (>60 ml/min/1.73 sqM) Est GFR (CKD-EPI)NonAf >90 (>60 ml/min/1.73 sqM) Glucose 95 (74-99) mg/dL Calcium 9.4 (8.4-10.2) mg/dL Total Bilirubin 0.4 (0.2-1.3) mg/dL AST 21 (14-36) U/L ALT 18 (4-34) U/L Alkaline Phosphatase 51 (38-126) U/L Total Protein 7.2 (6.3-8.2) g/dL Albumin 4.9 (3.5-5.0) g/dL Urine Color Colorless Urine Appearance Clear (Clear) Urine pH 7.0 (5.0-8.0) Ur Specific [place] 1.002 (1.001-1.035) Urine Protein Negative (Negative) Urine Glucose (UA) Negative (Negative) Urine Ketones Negative (Negative) Urine Blood Negative (Negative) Urine Nitrite Negative (Negative) Urine Bilirubin Negative (Negative) Urine Urobilinogen <2.0 (<2.0) mg/dL Ur Leukocyte Esterase Negative (Negative) Urine HCG, Qual (Not Detectd) 01/28/22 Range/Units 22:22 WBC (3.8-10.6) k/uL RBC (3.80-5.40) m/uL Hgb (11.4-16.0) gm/dL Hct (34.0-46.0) % MCV (80.0-100.0) fL MCH (25.0-35.0) pg MCHC (31.0-37.0) g/dL RDW (11.5-15.5) % Plt Count (150-450) k/uL MPV Neutrophils % % Lymphocytes % % Monocytes % % Eosinophils % % Basophils % % Neutrophils # (1.3-7.7) k/uL Lymphocytes # (1.0-4.8) k/uL Monocytes # (0-1.0) k/uL Eosinophils # (0-0.7) k/uL Basophils # (0-0.2) k/uL Sodium (137-145) mmol/L Potassium (3.5-5.1) mmol/L Chloride (98-107) mmol/L Carbon Dioxide (22-30) mmol/L Anion Gap mmol/L BUN (7-17) mg/dL Creatinine (0.52-1.04) mg/dL Est GFR (CKD-EPI)AfAm (>60 ml/min/1.73 sqM) Est GFR (CKD-EPI)NonAf (>60 ml/min/1.73 sqM) Glucose (74-99) mg/dL Calcium (8.4-10.2) mg/dL Total Bilirubin (0.2-1.3) mg/dL AST (14-36) U/L ALT (4-34) U/L Alkaline Phosphatase (38-126) U/L Total Protein (6.3-8.2) g/dL Albumin (3.5-5.0) g/dL Urine Color Urine Appearance (Clear) Urine pH (5.0-8.0) Ur Specific [place] (1.001-1.035) Urine Protein (Negative) Urine Glucose (UA) (Negative) Urine Ketones (Negative) Urine Blood (Negative) Urine Nitrite (Negative) Urine Bilirubin (Negative) Urine Urobilinogen (<2.0) mg/dL Ur Leukocyte Esterase (Negative) Urine HCG, Qual Not Detected (Not Detectd) Disposition Clinical Impression: Abdominal pain Disposition: HOME SELF-CARE Condition: Good Instructions (If sedation given, give patient instructions): Abdominal Pain (ED) Additional Instructions: Follow-up with your primary care doctor or gastroenterology for continuation of care. Return to the emergency room with any new or concerning symptoms in cluding fever, persistent nausea and vomiting or right lower abdominal pain. Prescriptions: Dicyclomine [Bentyl] 20 mg PO TID #30 tablet Is patient prescribed a controlled substance at d/c from ED?: No Referrals: James Pettit MD [Primary Care Provider] - 1-2 days Bryanna Minaya MD [STAFF PHYSICIAN] - 1-2 days Time of Disposition: 00:18
[2022-01-29 00:44] VITALS: BP 114/64; PULSE 79; RESP 16
== END 2022-01-29 00:43 | disposition home or self-care (01) ==
LOC: EC 20:49
DX: R10.9 Unspecified abdominal pain (principal); F12.90 Cannabis use, unspecified, uncomplicated
CPT/HCPCS: 36415; 80053; 85025; 81003; 81025; 99284; 96372; J0500

== ENCOUNTER 2023-08-30 11:09 | Emergency (ER) | payer OTHER ==
[2023-08-30 11:18] VITALS: TEMP 98.3
[2023-08-30 12:14] LABS: Basophils # (A) 0.1 k/uL (0-0.2); Basophils % (A) 1 %; Eosinophils # (A) 0.4 k/uL (0-0.7); Eosinophils % (A) 6 %; HCT 41.8 % (34.0-46.0); HGB 13.7 gm/dL (11.4-16.0); Lymphocytes # (A) 1.4 k/uL (1.0-4.8); Lymphocytes % (A) 24 %; MCH 29.1 pg (25.0-35.0); MCHC 32.8 g/dL (31.0-37.0); MCV 88.6 fL (80.0-100.0); Mean Platelet Volume 7.9; Monocytes # (A) 0.5 k/uL (0-1.0); Monocytes % (A) 9 %; Neutrophils # (A) 3.4 k/uL (1.3-7.7); Neutrophils % (A) 57 %; Platelet Count 238 k/uL (150-450); RBC 4.72 m/uL (3.80-5.40); RDW 13.7 % (11.5-15.5)
[2023-08-30 12:28] LABS: ALT 14 U/L (4-34); AST 21 U/L (14-36); African American GFR (CKD) >90 (>60 ml/min/1.73 sqM); Albumin 4.8 g/dL (3.5-5.0); Alkaline Phosphatase 66 U/L (38-126); Anion Gap 8 mmol/L; Blood Urea Nitrogen 10 mg/dL (7-17); Carbon Dioxide 25 mmol/L (22-30); Chloride 105 mmol/L (98-107); Glucose 88 mg/dL (74-99); Non-African American GFR(CKD) >90 (>60 ml/min/1.73 sqM); Potassium 4.4 mmol/L (3.5-5.1); Sodium 138 mmol/L (137-145); Total Bilirubin 0.8 mg/dL (0.2-1.3); Total Protein 7.6 g/dL (6.3-8.2)
--- NOTE | 2023-08-30 13:03 | ED ---
General Adult HPI - General Chief complaint: Chest Pain Stated complaint: Poss blood clot, Dr referral Time Seen by Provider: 08/30/23 12:20 Source: patient, RN notes reviewed, old records reviewed Mode of arrival: ambulatory Limitations: no limitations - History of Present Illness Initial comments: This is a 22-year-old female who presents to the emergency department stating that she has been having some chest tightness and felt a little short of breath with a cough for the last few days and she went to an urgent care today and they sent her in to rule out pulmonary embolism. Patient denies tachycardia. Patient states she has no swelling in legs or calf tenderness. Patient denies being on any long trips or travel. Patient denies any control. Patient denies being . - Related Data Home Medications Medication Instructions Recorded Confirmed medroxyPROGESTERone [Depo-Provera] 150 mg IM Q84D 01/10/21 06/19/21 Previous Rx's Medication Instructions Recorded Acetaminophen [Tylenol] 500 mg PO Q4-6H PRN #24 tab 08/19/21 Ibuprofen [Motrin] 600 mg PO Q8HR PRN #30 tab 08/19/21 Penicillin V Potassium [Pen Vee K] 500 mg PO QID #36 tablet 08/19/21 Dicyclomine [Bentyl] 20 mg PO TID #30 tablet 01/29/22 Fluticasone Nasal Kiefer [Flonase 2 spray EA NOSTRIL DAILY #16 gm 10/15/22 Nasal Kiefer] Ketorolac [Toradol] 10 mg PO TID #15 tab 10/15/22 Loratadine [Claritin] 10 mg PO DAILY #30 tab 10/15/22 methocarbamoL [Robaxin-750] 750 mg PO QID PRN #30 tab 10/15/22 Allergies Allergy/AdvReac Type Severity Reaction Status Date / Time No Known Allergies Allergy Verified 08/30/23 15:02 Review of Systems ROS Statement: Those systems with pertinent positive or pertinent negative responses have been documented in the HPI. ROS Other: All systems not noted in ROS Statement are negative. Past Medical History Past Medical History: No Reported History Additional Past Medical History / Comment(s): migraines History of Any Multi-Drug Resistant Organisms: None Reported Past Surgical History: No Surgical Hx Reported Past Anesthesia/Blood Transfusion Reactions: No Reported Reaction Past Psychological History: Anxiety, Depression Smoking Status: Vaper Past Alcohol Use History: Rare Past Drug Use History: None Reported - Past Family History Mother Family Medical History: No Reported History General Exam - General Exam Comments Initial Comments: GENERAL: Patient is well-developed and well-nourished. Patient is nontoxic and well- hydrated and is in no acute distress. ENT: Neck is soft and supple. No significant lymphadenopathy is noted. Oropharynx is clear. Moist mucous membranes. Neck has full range of motion without eliciting any pain. EYES: The sclera were anicteric and conjunctiva were pink and moist. Extraocular movements were intact and pupils were equal round and reactive to light. Eyelids were unremarkable. PULMONARY: Some rhonchi in the right base CARDIOVASCULAR: There is a regular rate and rhythm without any murmurs gallops or rubs. ABDOMEN: Soft and nontender with normal bowel sounds. No palpable organomegaly was noted. There is no palpable pulsatile mass. SKIN: Skin is clear with no lesions or rashes and otherwise unremarkable. NEUROLOGIC: Patient is alert and oriented x3. Cranial nerves II through XII are grossly intact. Motor and sensory are also intact. Normal speech, volume and content. Symmetrical smile. MUSCULOSKELETAL: Normal extremities with adequate strength and full range of motion. No lower extremity swelling or edema. No calf tenderness. LYMPHATICS: No significant lymphadenopathy is noted PSYCHIATRIC: Normal psychiatric evaluation. Limitations: no limitations Course Vital Signs 08/30/23 11:16 Temperature 98.3 F Pulse Rate 87 Respiratory 20 Rate Blood Pressure 111/77 O2 Sat by Pulse 99 Oximetry Medical Decision Making - Medical Decision Making EKG is interpreted by myself. EKG shows a sinus rhythm at 74 bpm parables 173 QRS is 85 QT interval 331 QTc is 358. Patient's EKG ST segment elevation or depression. Was pt. sent in by a medical professional or institution (, PA, NATIONAL SALES ASSOCIATE, urgent care, hospital, or shelter...) When possible be specific @ -Patient was sent to us from urgent care Did you speak to anyone other than the patient for history (EMS, parent, family, police, friend...)? What history was obtained from this source @ -No Did you review nursing and triage notes (agree or disagree)? Why? @ -I reviewed and agree with nursing and triage notes Were old charts reviewed (outside hosp., previous admission, EMS record, old EKG, old radiological studies, urgent care reports/EKG's, shelter records)? Report findings @ -No old charts were reviewed Differential Diagnosis (chest pain, altered mental status, abdominal pain women, abdominal pain men, vaginal bleeding, weakness, fever, dyspnea, syncope, headache, dizziness, GI bleed, back pain, seizure, CVA, palpatations, mental health, musculoskeletal)? @ -Differential Dyspnea: Coronary syndrome, arrhythmia, tamponade, asthma, COPD, pulmonary embolism, pneumonia, pneumothorax, pulmonary effusion, anaphylaxis, diabetic ketoacidosis, flailed chest, pulmonary contusion, diaphragmatic rupture, anemia, neuromuscular, this is not meant to be an all-inclusive list. EKG interpreted by me (3pts min.). @ -As above X-rays interpreted by me (1pt min.). @ -None done CT interpreted by me (1pt min.). @ -None done U/S interpreted by me (1pt. min.). @ -None done What testing was considered but not performed or refused? (CT, X-rays, U/S, labs)? Why? @ -None What meds were considered but not given or refused? Why? @ -None Did you discuss the management of the patient with other professionals (professionals i.e. , PA, NATIONAL SALES ASSOCIATE, lab, RT, psych nurse, social media marketing specialist, special needs bus driver, teacher, combat systems officer, counter caser)? Give summary @ -No Was smoking cessation discussed for >3mins.? @ -No Was critical care preformed (if so, how long)? @ -No Were there social determinants of health that impacted care today? How? (Homelessness, low income, unemployed, alcoholism, drug addiction, transportation, low edu. Level, literacy, decrease access to med. care, fdc, rehab)? @ -No Was there de-escalation of care discussed even if they declined (Discuss DNR or withdrawal of care, Hospice)? DNR status @ -No What co-morbidities impacted this encounter? (DM, HTN, Smoking, COPD, CAD, Cancer, CVA, ARF, Chemo, Hep., AIDS, mental health diagnosis, sleep apnea, morbid obesity)? @ -None Was patient admitted / discharged? Hospital course, mention meds given and route, prescriptions, significant lab abnormalities, going to OR and other pertinent info. @ -Patient's lab work came back within normal range the D-dimer was normal. Patient was resting comfortably and sleeping most the time I went by the room. Patient will be discharged and she can follow-up with her primary medical care doctor as needed Undiagnosed new problem with uncertain prognosis? @ -No Drug Therapy requiring intensive monitoring for toxicity (Heparin, Nitro, Insulin, Cardizem)? @ -No Were any procedures done? @ -No Diagnosis/symptom? @ -Upper respiratory infection Acute, or Chronic, or Acute on Chronic? @ -Acute Uncomplicated (without systemic symptoms) or Complicated (systemic symptoms)? @ -Complicated Side effects of treatment? @ -No Exacerbation, Progression, or Severe Exacerbation? @ -No Poses a threat to life or bodily function? How? (Chest pain, [place], [place], pneumonia, PE, COPD, DKA, ARF, appy, cholecystitis, CVA, Diverticulitis, Homicidal, Suicidal, threat to staff... and all critical care pts) @ -No - Lab Data Result diagrams: 08/30/23 12:10 08/30/23 12:10 Lab Results 08/30/23 08/30/23 08/30/23 Range/Units 12:10 12:10 12:10 WBC 6.0 (3.8-10.6) k/uL RBC 4.72 (3.80-5.40) m/uL Hgb 13.7 (11.4-16.0) gm/dL Hct 41.8 (34.0-46.0) % MCV 88.6 (80.0-100.0) fL MCH 29.1 (25.0-35.0) pg MCHC 32.8 (31.0-37.0) g/dL RDW 13.7 (11.5-15.5) % Plt Count 238 (150-450) k/uL MPV 7.9 Neutrophils % 57 % Lymphocytes % 24 % Monocytes % 9 % Eosinophils % 6 % Basophils % 1 % Neutrophils # 3.4 (1.3-7.7) k/uL Lymphocytes # 1.4 (1.0-4.8) k/uL Monocytes # 0.5 (0-1.0) k/uL Eosinophils # 0.4 (0-0.7) k/uL Basophils # 0.1 (0-0.2) k/uL D-Dimer <0.17 (<0.60) mg/L FEU Sodium 138 (137-145) mmol/L Potassium 4.4 (3.5-5.1) mmol/L Chloride 105 (98-107) mmol/L Carbon Dioxide 25 (22-30) mmol/L Anion Gap 8 mmol/L BUN 10 (7-17) mg/dL Creatinine 0.65 (0.52-1.04) mg/dL Est GFR (CKD-EPI)AfAm >90 (>60 ml/min/1.73 sqM) Est GFR (CKD-EPI)NonAf >90 (>60 ml/min/1.73 sqM) Glucose 88 (74-99) mg/dL Calcium 10.0 (8.4-10.2) mg/dL Total Bilirubin 0.8 (0.2-1.3) mg/dL AST 21 (14-36) U/L ALT 14 (4-34) U/L Alkaline Phosphatase 66 (38-126) U/L Troponin I (0.000-0.034) ng/mL Total Protein 7.6 (6.3-8.2) g/dL Albumin 4.8 (3.5-5.0) g/dL 08/30/23 Range/Units 12:10 WBC (3.8-10.6) k/uL RBC (3.80-5.40) m/uL Hgb (11.4-16.0) gm/dL Hct (34.0-46.0) % MCV (80.0-100.0) fL MCH (25.0-35.0) pg MCHC (31.0-37.0) g/dL RDW (11.5-15.5) % Plt Count (150-450) k/uL MPV Neutrophils % % Lymphocytes % % Monocytes % % Eosinophils % % Basophils % % Neutrophils # (1.3-7.7) k/uL Lymphocytes # (1.0-4.8) k/uL Monocytes # (0-1.0) k/uL Eosinophils # (0-0.7) k/uL Basophils # (0-0.2) k/uL D-Dimer (<0.60) mg/L FEU Sodium (137-145) mmol/L Potassium (3.5-5.1) mmol/L Chloride (98-107) mmol/L Carbon Dioxide (22-30) mmol/L Anion Gap mmol/L BUN (7-17) mg/dL Creatinine (0.52-1.04) mg/dL Est GFR (CKD-EPI)AfAm (>60 ml/min/1.73 sqM) Est GFR (CKD-EPI)NonAf (>60 ml/min/1.73 sqM) Glucose (74-99) mg/dL Calcium (8.4-10.2) mg/dL Total Bilirubin (0.2-1.3) mg/dL AST (14-36) U/L ALT (4-34) U/L Alkaline Phosphatase (38-126) U/L Troponin I <0.012 (0.000-0.034) ng/mL Total Protein (6.3-8.2) g/dL Albumin (3.5-5.0) g/dL Disposition Clinical Impression: Upper respiratory infection Disposition: HOME SELF-CARE Condition: Good Instructions (If sedation given, give patient instructions): Upper Respiratory Infection (ED) Is patient prescribed a controlled substance at d/c from ED?: No Referrals: James Pettit MD [Primary Care Provider] - 1-2 days Time of Disposition: 15:12
--- NOTE | 2023-08-30 13:26 | XR ---
EXAMINATION TYPE: XR chest 2V DATE OF EXAM: 08/30/2023 1:09 PM CLINICAL INDICATION:Female, 22 years old with history of Pain; COMPARISON: Chest radiographs from 01/26/2021 TECHNIQUE: XR chest 2V Frontal and lateral views of the chest. FINDINGS: Lungs/Pleura: There is no evidence of pleural effusion, focal consolidation, or pneumothorax. Pulmonary vascularity: Unremarkable. Heart/mediastinum: Cardiomediastinal silhouette is unremarkable. Musculoskeletal: No acute osseous pathology. IMPRESSION: No acute cardiopulmonary disease/process.
[2023-08-30 15:36] VITALS: BP 114/74; PULSE 76; RESP 18
== END 2023-08-30 15:36 | disposition home or self-care (01) ==
LOC: EC 11:09
DX: J06.9 Acute upper respiratory infection, unspecified (principal); F17.290 Nicotine dependence, other tobacco product, uncomplicated
CPT/HCPCS: 36415; 71046; 80053; 84484; 85025; 85379; 93005; 99285

== ENCOUNTER 2023-12-13 22:22 | Emergency (ER) | payer BC, OTHER ==
[2023-12-13 22:26] VITALS: RESP 18
[2023-12-13] MEDS: SODIUM CHLORIDE 0.9% 1,000 ML IV STA (23:03)
[2023-12-13] MEDS: ONDANSETRON 4 MG/2 ML VIAL IVP STA (23:03)
[2023-12-13 23:11] LABS: Basophils # (A) 0.1 k/uL (0-0.2); Basophils % (A) 1 %; Eosinophils # (A) 0.4 k/uL (0-0.7); Eosinophils % (A) 7 %; HCT 39.9 % (34.0-46.0); HGB 13.1 gm/dL (11.4-16.0); Lymphocytes # (A) 2.1 k/uL (1.0-4.8); Lymphocytes % (A) 37 %; MCH 29.5 pg (25.0-35.0); MCHC 32.9 g/dL (31.0-37.0); MCV 89.5 fL (80.0-100.0); Mean Platelet Volume 7.3; Monocytes # (A) 0.4 k/uL (0-1.0); Monocytes % (A) 6 %; Neutrophils # (A) 2.6 k/uL (1.3-7.7); Neutrophils % (A) 47 %; Platelet Count 250 k/uL (150-450); RBC 4.46 m/uL (3.80-5.40); RDW 13.3 % (11.5-15.5); WBC 5.6 k/uL (3.8-10.6)
[2023-12-13 23:14] LABS: Appearance,Urine Clear (Clear); Bilirubin,Urine Negative (Negative); Blood,Urine Small (Negative); Color,Urine Colorless; Glucose,Urine (UA) Negative (Negative); Ketones,Urine Negative (Negative); Leukocyte Esterase,Urine Negative (Negative); Nitrite,Urine Negative (Negative); PH, Urine 6.5 (5.0-8.0); Protein,Urine Negative (Negative); Specific Gravity,Urine 1.003 (1.001-1.035); Squamous Epithelial Cell,Urine <1 /hpf (0-4); Urobilinogen,Urine <2.0 mg/dL (<2.0); WBC,Urine <1 /hpf (0-5)
[2023-12-13 23:39] LABS: ALT 16 U/L (4-34); AST 24 U/L (14-36); African American GFR (CKD) >90 (>60 ml/min/1.73 sqM); Albumin 4.7 g/dL (3.5-5.0); Alkaline Phosphatase 53 U/L (38-126); Anion Gap 11 mmol/L; Blood Urea Nitrogen 12 mg/dL (7-17); Calcium 10.2 mg/dL (8.4-10.2); Carbon Dioxide 26 mmol/L (22-30); Chloride 104 mmol/L (98-107); Glucose 83 mg/dL (74-99); Non-African American GFR(CKD) >90 (>60 ml/min/1.73 sqM); Potassium 4.2 mmol/L (3.5-5.1); Sodium 141 mmol/L (137-145); Total Bilirubin 0.6 mg/dL (0.2-1.3); Total Protein 7.2 g/dL (6.3-8.2)
--- NOTE | 2023-12-14 00:09 | US ---
EXAMINATION TYPE: US transvaginal DATE OF EXAM: 12/13/2023 COMPARISON: 12/22/2021, CT CLINICAL INDICATION: Female, 22 years old with history of lower abd pain; Patient states lower abdomi nal pain, more so on the left side. TECHNIQUE: Transvaginal. . Transvaginal sonographic images were medically necessary to better asses s the following anatomy: Ovaries Date of LMP: 12/11/2023 EXAM MEASUREMENTS: Uterus: 8.3 x 3.8 x 5.0 cm Endometrial Stripe: 0.3 cm Right Ovary: 2.3 x 2.3 x 1.2 cm Left Ovary: 3.2 x 2.1 x 1.7 cm 1. Uterus: Anteverted Dilated vessels seen left lateral 2. Endometrium: WNL 3. Right Ovary: Follicular changes seen, wnl 4. Left Ovary: wnl Spectral, color and waveform doppler imaging shows good arterial and venous flow within the ovaries ; 5. Bilateral Adnexa: WNL 6. Posterior cul-de-sac: No free fluid seen IMPRESSION: Possible left sided pelvic congestion syndrome. Correlate clinically. [facility], , 12/14/2023 12:07 AM
--- NOTE | 2023-12-14 00:12 | ED ---
Abdominal Pain HPI - General Chief Complaint: Abdominal Pain Stated Complaint: Abd Pain Time Seen by Provider: 12/14/23 00:10 Source: patient Mode of arrival: ambulatory - History of Present Illness Initial Comments: 22-year-old female presented to the ER with a chief complaint of abdominal pain. Patient states she has a history of "fluid around her ovaries". She states she chronically has lower abdominal pain but within the past 3 days this has been intensified. She states the pain does make her feel nauseous denies any vomiting. Patient does also reports she is on her menstrual cycle and flow is per normal. She denies any constipation or diarrhea. Denies any fevers or chills. No urinary complaints. No other complaints. - Related Data Home Medications Medication Instructions Recorded Confirmed Escitalopram [Lexapro] 5 mg PO DAILY 08/30/23 08/30/23 busPIRone HCl [Buspar] 10 mg PO TID 08/30/23 08/30/23 lamoTRIgine [LaMICtal] 100 mg PO DAILY 08/30/23 08/30/23 Previous Rx's Medication Instructions Recorded Loratadine [Claritin] 10 mg PO DAILY #30 tab 10/15/22 Allergies Allergy/AdvReac Type Severity Reaction Status Date / Time No Known Allergies Allergy Verified 12/13/23 22:26 Review of Systems ROS Statement: Those systems with pertinent positive or pertinent negative responses have been documented in the HPI. ROS Other: All systems not noted in ROS Statement are negative. Past Medical History Past Medical History: No Reported History Additional Past Medical History / Comment(s): migraines, fluid on ovaries History of Any Multi-Drug Resistant Organisms: None Reported Past Surgical History: No Surgical Hx Reported Past Anesthesia/Blood Transfusion Reactions: No Reported Reaction Past Psychological History: Anxiety, Depression Smoking Status: Vaper Past Alcohol Use History: Rare Past Drug Use History: None Reported - Past Family History Mother Family Medical History: No Reported History General Exam Limitations: no limitations General appearance: alert, in no apparent distress Respiratory exam: Present: normal lung sounds bilaterally. Absent: respiratory distress, wheezes, rales, rhonchi, stridor Cardiovascular Exam: Present: regular rate, normal rhythm, normal heart sounds. Absent: systolic murmur, diastolic murmur, rubs, gallop, clicks GI/Abdominal exam: Present: soft, tenderness (Suprapubic bilateral lower quadrant), normal bowel sounds Neurological exam: Present: alert, oriented X3, CN II-XII intact Skin exam: Present: warm, dry, intact, normal color. Absent: rash Course Vital Signs 12/13/23 12/14/23 22:23 00:35 Temperature 97.6 F 97.9 F Pulse Rate 80 64 Respiratory 18 18 Rate Blood Pressure 111/77 110/68 O2 Sat by Pulse 100 99 Oximetry Medical Decision Making - Medical Decision Making Was pt. sent in by a medical professional or institution (, PA, CELL TUBER MACHINE, urgent care, hospital, or jail...) When possible be specific @ -No Did you speak to anyone other than the patient for history (EMS, parent, family, police, friend...)? What history was obtained from this source @ -No Did you review nursing and triage notes (agree or disagree)? Why? @ -I reviewed and agree with nursing and triage notes Were old charts reviewed (outside hosp., previous admission, EMS record, old EKG, old radiological studies, urgent care reports/EKG's, jail records)? Report findings @ -No old charts were reviewed Differential Diagnosis (chest pain, altered mental status, abdominal pain women, abdominal pain men, vaginal bleeding, weakness, fever, dyspnea, syncope, headache, dizziness, GI bleed, back pain, seizure, CVA, palpatations, mental health, musculoskeletal)? @ -Differential Abdominal Pain Women: Appendicitis, Cholecystitis, diverticulosis, ischemic bowel, pancreatitis, hepatitis, UTI, gastroenteritis, AAA, incarcerated hernia, bowel obstruction, constipation, inflammatory bowel, hepatitis, peptic ulcer disease, splenic infarction, perforated viscus, vulvitis, ovarian torsion, PID, kidney stone, placenta abruption, this is not meant to be an all-inclusive list EKG interpreted by me (3pts min.). @ -None done X-rays interpreted by me (1pt min.). @ -None done CT interpreted by me (1pt min.). @ -None done U/S interpreted by me (1pt. min.). @ -Transvaginal ultrasound significant for possible for left side pelvic congestion syndrome. What testing was considered but not performed or refused? (CT, X-rays, U/S, labs)? Why? @ -None What meds were considered but not given or refused? Why? @ -None Did you discuss the management of the patient with other professionals (professionals i.e. , PA, CELL TUBER MACHINE, lab, RT, psych nurse, social work assistant, cartridge maker, teacher, parcel post officer, case assistant)? Give summary @ -No Was smoking cessation discussed for >3mins.? @ -No Was critical care preformed (if so, how long)? @ -No Were there social determinants of health that impacted care today? How? (Homelessness, low income, unemployed, alcoholism, drug addiction, transportation, low edu. Level, literacy, decrease access to med. care, senior living, rehab)? @ -No Was there de-escalation of care discussed even if they declined (Discuss DNR or withdrawal of care, Hospice)? DNR status @ -No What co-morbidities impacted this encounter? (DM, HTN, Smoking, COPD, CAD, Cancer, CVA, ARF, Chemo, Hep., AIDS, mental health diagnosis, sleep apnea, morbid obesity)? @ -None Was patient admitted / discharged? Hospital course, mention meds given and route, prescriptions, significant lab abnormalities, going to OR and other pertinent info. @ -Discharged. 22 year old female presenting to the ER with a chief complaint of lower abdominal pain. History and physical exam completed. Vitals within normal limits. Patient in no signs of acute distress and nontoxic-appearing. Mild tenderness to lower abdomen. Normal bowel sounds. No rebound or guarding. Laboratory studies obtained unimpressive. Urine analysis unremarkable. Transvaginal ultrasound showing possible left-sided pelvic congestion syndrome. Patient received IV fluids and zofran for symptom control in the ER. Upon reevaluation, patient resting comfortably in exam room in no signs of acute distress. Results discussed with patient, all questions answered. Advise close follow-up with PCP. Strict return parameters discussed. Patient discharged in stable condition. Patient verbally expressed understanding agreement with care plan. Case discussed with ED attending, Dr. Nelson. Undiagnosed new problem with uncertain prognosis? @ -No Drug Therapy requiring intensive monitoring for toxicity (Heparin, Nitro, Insu poppy, Cardizem)? @ -No Were any procedures done? @ -No Diagnosis/symptom? @ - Abdominal pain/left sided pelvic congestion syndrome Acute, or Chronic, or Acute on Chronic? @ -Acute Uncomplicated (without systemic symptoms) or Complicated (systemic symptoms)? @ -Uncomplicated Side effects of treatment? @ -No Exacerbation, Progression, or Severe Exacerbation? @ -No Poses a threat to life or bodily function? How? (Chest pain, [place], [place], pneumonia, PE, COPD, DKA, ARF, appy, cholecystitis, CVA, Diverticulitis, Homicidal, Suicidal, threat to staff... and all critical care pts) @ -No - Lab Data Result diagrams: 12/13/23 22:59 12/13/23 22:59 Lab Results 12/13/23 12/13/23 12/13/23 Range/Units 22:59 22:59 23:07 WBC 5.6 (3.8-10.6) k/uL RBC 4.46 (3.80-5.40) m/uL Hgb 13.1 (11.4-16.0) gm/dL Hct 39.9 (34.0-46.0) % MCV 89.5 (80.0-100.0) fL MCH 29.5 (25.0-35.0) pg MCHC 32.9 (31.0-37.0) g/dL RDW 13.3 (11.5-15.5) % Plt Count 250 (150-450) k/uL MPV 7.3 Neutrophils % 47 % Lymphocytes % 37 % Monocytes % 6 % Eosinophils % 7 % Basophils % 1 % Neutrophils # 2.6 (1.3-7.7) k/uL Lymphocytes # 2.1 (1.0-4.8) k/uL Monocytes # 0.4 (0-1.0) k/uL Eosinophils # 0.4 (0-0.7) k/uL Basophils # 0.1 (0-0.2) k/uL Sodium 141 (137-145) mmol/L Potassium 4.2 (3.5-5.1) mmol/L Chloride 104 (98-107) mmol/L Carbon Dioxide 26 (22-30) mmol/L Anion Gap 11 mmol/L BUN 12 (7-17) mg/dL Creatinine 0.71 (0.52-1.04) mg/dL Est GFR (CKD-EPI)AfAm >90 (>60 ml/min/1.73 sqM) Est GFR (CKD-EPI)NonAf >90 (>60 ml/min/1.73 sqM) Glucose 83 (74-99) mg/dL Calcium 10.2 (8.4-10.2) mg/dL Total Bilirubin 0.6 (0.2-1.3) mg/dL AST 24 (14-36) U/L ALT 16 (4-34) U/L Alkaline Phosphatase 53 (38-126) U/L Total Protein 7.2 (6.3-8.2) g/dL Albumin 4.7 (3.5-5.0) g/dL Urine Color Colorless Urine Appearance Clear (Clear) Urine pH 6.5 (5.0-8.0) Ur Specific [place] 1.003 (1.001-1.035) Urine Protein Negative (Negative) Urine Glucose (UA) Negative (Negative) Urine Ketones Negative (Negative) Urine Blood Small H (Negative) Urine Nitrite Negative (Negative) Urine Bilirubin Negative (Negative) Urine Urobilinogen <2.0 (<2.0) mg/dL Ur Leukocyte Esterase Negative (Negative) Urine WBC <1 (0-5) /hpf Ur Squamous Epith Cells <1 (0-4) /hpf Urine HCG, Qual (Not Detectd) 12/13/23 Range/Units 23:07 WBC (3.8-10.6) k/uL RBC (3.80-5.40) m/uL Hgb (11.4-16.0) gm/dL Hct (34.0-46.0) % MCV (80.0-100.0) fL MCH (25.0-35.0) pg MCHC (31.0-37.0) g/dL RDW (11.5-15.5) % Plt Count (150-450) k/uL MPV Neutrophils % % Lymphocytes % % Monocytes % % Eosinophils % % Basophils % % Neutrophils # (1.3-7.7) k/uL Lymphocytes # (1.0-4.8) k/uL Monocytes # (0-1.0) k/uL Eosinophils # (0-0.7) k/uL Basophils # (0-0.2) k/uL Sodium (137-145) mmol/L Potassium (3.5-5.1) mmol/L Chloride (98-107) mmol/L Carbon Dioxide (22-30) mmol/L Anion Gap mmol/L BUN (7-17) mg/dL Creatinine (0.52-1.04) mg/dL Est GFR (CKD-EPI)AfAm (>60 ml/min/1.73 sqM) Est GFR (CKD-EPI)NonAf (>60 ml/min/1.73 sqM) Glucose (74-99) mg/dL Calcium (8.4-10.2) mg/dL Total Bilirubin (0.2-1.3) mg/dL AST (14-36) U/L ALT (4-34) U/L Alkaline Phosphatase (38-126) U/L Total Protein (6.3-8.2) g/dL Albumin (3.5-5.0) g/dL Urine Color Urine Appearance (Clear) Urine pH (5.0-8.0) Ur Specific [place] (1.001-1.035) Urine Protein (Negative) Urine Glucose (UA) (Negative) Urine Ketones (Negative) Urine Blood (Negative) Urine Nitrite (Negative) Urine Bilirubin (Negative) Urine Urobilinogen (<2.0) mg/dL Ur Leukocyte Esterase (Negative) Urine WBC (0-5) /hpf Ur Squamous Epith Cells (0-4) /hpf Urine HCG, Qual Not Detected (Not Detectd) - Radiology Data Radiology results: report reviewed, image reviewed Disposition Clinical Impression: Abdominal pain, Pelvic congestion syndrome Disposition: HOME SELF-CARE Condition: Stable Instructions (If sedation given, give patient instructions): Abdominal Pain (ED) Additional Instructions: Please follow-up with PCP in the next 1 to 2 days. Return to the ER for any new or worsening concerns. Is patient prescribed a controlled substance at d/c from ED?: No Referrals: James Pettit MD [Primary Care Provider] - 1-2 days Forms: Work/School Release Time of Disposition: 00:16
[2023-12-14 00:40] VITALS: BP 110/68; PULSE 64; TEMP 97.9
== END 2023-12-14 00:42 | disposition home or self-care (01) ==
LOC: EC 22:22
CPT/HCPCS: 36415; 76830; 80053; 81001; 81025; 85025; 93975; 96361; 96374; 99284

== ENCOUNTER 2024-05-31 19:15 | Emergency (ER) | payer BC ==
[2024-05-31 21:28] LABS: Basophils # (A) 0.1 k/uL (0-0.2); Basophils % (A) 1 %; Eosinophils # (A) 0.2 k/uL (0-0.7); Eosinophils % (A) 3 %; HCT 38.2 % (34.0-46.0); HGB 12.4 gm/dL (11.4-16.0); Lymphocytes # (A) 3.5 k/uL (1.0-4.8); Lymphocytes % (A) 43 %; MCH 28.7 pg (25.0-35.0); MCHC 32.5 g/dL (31.0-37.0); MCV 88.2 fL (80.0-100.0); Mean Platelet Volume 7.1; Monocytes # (A) 0.5 k/uL (0-1.0); Monocytes % (A) 6 %; Neutrophils # (A) 3.8 k/uL (1.3-7.7); Neutrophils % (A) 46 %; Platelet Count 227 k/uL (150-450); RBC 4.33 m/uL (3.80-5.40); RDW 13.2 % (11.5-15.5); WBC 8.2 k/uL (3.8-10.6)
[2024-05-31 21:28] LABS: Appearance,Urine Clear (Clear); Bilirubin,Urine Negative (Negative); Blood,Urine Negative (Negative); Color,Urine Yellow; Glucose,Urine (UA) Negative (Negative); Ketones,Urine Negative (Negative); Leukocyte Esterase,Urine Negative (Negative); Nitrite,Urine Negative (Negative); Protein,Urine Negative (Negative); Specific Gravity,Urine 1.028 (1.001-1.035); Urobilinogen,Urine <2.0 mg/dL (<2.0)
[2024-05-31 21:48] LABS: ALT 20 U/L (4-34); AST 23 U/L (14-36); African American GFR (CKD) >90 (>60 ml/min/1.73 sqM); Albumin 4.6 g/dL (3.5-5.0); Alkaline Phosphatase 44 U/L (38-126); Anion Gap 12 mmol/L; Blood Urea Nitrogen 18 mg/dL (7-17); Calcium 9.5 mg/dL (8.4-10.2); Carbon Dioxide 22 mmol/L (22-30); Chloride 104 mmol/L (98-107); Glucose 93 mg/dL (74-99); Non-African American GFR(CKD) >90 (>60 ml/min/1.73 sqM); Potassium 3.9 mmol/L (3.5-5.1); Sodium 138 mmol/L (137-145); Total Bilirubin 0.4 mg/dL (0.2-1.3); Total Protein 7.2 g/dL (6.3-8.2)
--- NOTE | 2024-05-31 21:55 | ED ---
General Adult HPI - General Chief complaint: Abdominal Pain Stated complaint: confusion Time Seen by Provider: 05/31/24 19:31 Source: patient Mode of arrival: ambulatory Limitations: no limitations - History of Present Illness Initial comments: Patient is a 23-year-old woman who presents to have evaluation for constellation of symptoms that been going on a number of days now. The patient states that things started with multiple episodes of vomiting. She did not have any coffee- ground or hematemesis. She also had loose bowel movements. She states that then she was feeling generalized weakness and fatigue and she was feeling mentally cloudy. -: days(s) Radiation: abdomen Quality: other (Cramping) Consistency: intermittent Improves with: none Worsens with: none Associated Symptoms: malaise, nausea/vomiting Treatments Prior to Arrival: none - Related Data Home Medications Medication Instructions Recorded Confirmed Escitalopram [Lexapro] 5 mg PO DAILY 08/30/23 08/30/23 busPIRone HCl [Buspar] 10 mg PO TID 08/30/23 08/30/23 lamoTRIgine [LaMICtal] 100 mg PO DAILY 08/30/23 08/30/23 Previous Rx's Medication Instructions Recorded Loratadine [Claritin] 10 mg PO DAILY #30 tab 10/15/22 Allergies Allergy/AdvReac Type Severity Reaction Status Date / Time No Known Allergies Allergy Verified 05/31/24 19:28 Review of Systems ROS Statement: Those systems with pertinent positive or pertinent negative responses have been documented in the HPI. ROS Other: All systems not noted in ROS Statement are negative. Constitutional: Denies: fever, chills, weakness Eyes: Denies: vision change Respiratory: Denies: cough, dyspnea Cardiovascular: Denies: chest pain, palpitations, edema Gastrointestinal: Reports: as per HPI, abdominal pain, nausea, vomiting, diarrhea. Denies: hematemesis, melena, hematochezia Genitourinary: Reports: other (Decreased urination). Denies: dysuria, hematuria Musculoskeletal: Denies: back pain Skin: Denies: rash Neurological: Reports: as per HPI, confusion. Denies: headache, weakness, numbness Past Medical History Past Medical History: No Reported History Additional Past Medical History / Comment(s): migraines, fluid on ovaries History of Any Multi-Drug Resistant Organisms: None Reported Past Surgical History: No Surgical Hx Reported Past Anesthesia/Blood Transfusion Reactions: No Reported Reaction Past Psychological History: Anxiety, Depression Smoking Status: Vaper Past Alcohol Use History: Rare Past Drug Use History: None Reported - Past Family History Mother Family Medical History: No Reported History General Exam Limitations: no limitations General appearance: alert, in no apparent distress Head exam: Present: atraumatic, normocephalic Eye exam: Present: normal appearance. Absent: scleral icterus, conjunctival injection ENT exam: Present: mucous membranes dry Neck exam: Present: normal inspection Respiratory exam: Present: normal lung sounds bilaterally. Absent: respiratory distress, wheezes, rales, rhonchi, stridor, accessory muscle use Cardiovascular Exam: Present: regular rate, normal rhythm, normal heart sounds. Absent: systolic murmur, diastolic murmur, rubs, gallop GI/Abdominal exam: Present: soft. Absent: distended, tenderness, guarding, re bound, rigid, mass Extremities exam: Present: normal inspection, normal capillary refill. Absent: pedal edema, calf tenderness Back exam: Present: normal inspection. Absent: CVA tenderness (R), CVA tenderness (L) Neurological exam: Present: alert, oriented X3, CN II-XII intact. Absent: motor sensory deficit Skin exam: Present: warm, dry, intact, normal color. Absent: rash Course Vital Signs 05/31/24 05/31/24 19:26 22:09 Temperature 97.7 F 98.9 F Pulse Rate 90 72 Respiratory 16 18 Rate Blood Pressure 119/80 105/66 O2 Sat by Pulse 97 99 Oximetry Medical Decision Making - Medical Decision Making Was pt. sent in by a medical professional or institution ([facility], MAINTENANCE TEAM LEADER, urgent care, hospital, or jail...) When possible be specific @ -[No] Did you speak to anyone other than the patient for history (EMS, parent, family, police, friend...)? What history was obtained from this source @ -[No] Did you review nursing and triage notes (agree or disagree)? Why? @ -[I reviewed and agree with nursing and triage notes] Were old charts reviewed (outside hosp., previous admission, EMS record, old EKG, old radiological studies, urgent care reports/EKG's, jail records)? Report findings @ -[No old charts were reviewed] Differential Diagnosis (chest pain, altered mental status, abdominal pain women, abdominal pain men, vaginal bleeding, weakness, fever, dyspnea, syncope, headache, dizziness, GI bleed, back pain, seizure, CVA, palpatations, mental health, musculoskeletal)? @ -[Differential Weakness: Hypoglycemia, shock, sepsis, hyponatremia, anemia, infection, GA, ETOH, adverse medicine reaction, overdose, stroke, this is not meant to be an all-inclusive list. EKG interpreted by me (3pts min.). @ -[As above] X-rays interpreted by me (1pt min.). @ -[None done] CT interpreted by me (1pt min.). @ -[None done] U/S interpreted by me (1pt. min.). @ -[None done] What testing was considered but not performed or refused? (CT, X-rays, U/S, labs)? Why? @ -[None] What meds were considered but not given or refused? Why? @ -[None] Did you discuss the management of the patient with other professionals (professionals i.e. , PA, MAINTENANCE TEAM LEADER, lab, RT, psych nurse, social services counselor, project inspector, teacher, affirmative action officer, employment case manager)? Give summary @ -[No] Was smoking cessation discussed for >3mins.? @ -[No] Was critical care preformed (if so, how long)? @ -[No] Were there social determinants of health that impacted care today? How? (Homelessness, low income, unemployed, alcoholism, drug addiction, transportation, low edu. Level, literacy, decrease access to med. care, [facility], rehab)? @ -[No] Was there de-escalation of care discussed even if they declined (Discuss DNR or withdrawal of care, Hospice)? DNR status @ -[No] What co-morbidities impacted this encounter? (DM, HTN, Smoking, COPD, CAD, Cancer, CVA, ARF, Chemo, Hep., AIDS, mental health diagnosis, sleep apnea, morbid obesity)? @ -[None] Was patient admitted / discharged? Hospital course, mention meds given and route, prescriptions, significant lab abnormalities, going to OR and other p ertinent info. @ -[Patient is a 23-year-old woman presenting with a feeling that she is just not right, after having had some days of poor intake and nausea vomiting. On exam patient does appear to be mildly dehydrated. Workup consistent with that as well. She does feel better after fluids and would like to go home. Discussed appropriate further care and follow-up Undiagnosed new problem with uncertain prognosis? @ -[No] Drug Therapy requiring intensive monitoring for toxicity (Heparin, Nitro, Insulin, Cardizem)? @ -[No] Were any procedures done? @ -[No] Diagnosis/symptom? @ -[Acute dehydration Acute, or Chronic, or Acute on Chronic? @ -[Acute Uncomplicated (without systemic symptoms) or Complicated (systemic symptoms)? @ -[Uncomplicated Side effects of treatment? @ -[No] Exacerbation, Progression, or Severe Exacerbation? @ -[No] Poses a threat to life or bodily function? How? (Chest pain, USA, GA, pneumonia, PE, COPD, DKA, ARF, appy, cholecystitis, CVA, Diverticulitis, Homicidal, Suicidal, threat to staff... and all critical care pts) @ -[No] All treatments are based on ideal body weight as in ED triage - Lab Data Result diagrams: 05/31/24 21:10 05/31/24 21:10 Lab Results 05/31/24 05/31/24 05/31/24 Range/Units 21:02 21:02 21:10 WBC 8.2 (3.8-10.6) k/uL RBC 4.33 (3.80-5.40) m/uL Hgb 12.4 (11.4-16.0) gm/dL Hct 38.2 (34.0-46.0) % MCV 88.2 (80.0-100.0) fL MCH 28.7 (25.0-35.0) pg MCHC 32.5 (31.0-37.0) g/dL RDW 13.2 (11.5-15.5) % Plt Count 227 (150-450) k/uL MPV 7.1 Neutrophils % 46 % Lymphocytes % 43 % Monocytes % 6 % Eosinophils % 3 % Basophils % 1 % Neutrophils # 3.8 (1.3-7.7) k/uL Lymphocytes # 3.5 (1.0-4.8) k/uL Monocytes # 0.5 (0-1.0) k/uL Eosinophils # 0.2 (0-0.7) k/uL Basophils # 0.1 (0-0.2) k/uL Sodium (137-145) mmol/L Potassium (3.5-5.1) mmol/L Chloride (98-107) mmol/L Carbon Dioxide (22-30) mmol/L Anion Gap mmol/L BUN (7-17) mg/dL Creatinine (0.52-1.04) mg/dL Est GFR (CKD-EPI)AfAm (>60 ml/min/1.73 sqM) Est GFR (CKD-EPI)NonAf (>60 ml/min/1.73 sqM) Glucose (74-99) mg/dL Plasma Lactic Acid Tyler (0.7-2.0) mmol/L Calcium (8.4-10.2) mg/dL Total Bilirubin (0.2-1.3) mg/dL AST (14-36) U/L ALT (4-34) U/L Alkaline Phosphatase (38-126) U/L Total Protein (6.3-8.2) g/dL Albumin (3.5-5.0) g/dL TSH (0.465-4.680) mIU/L Urine Color Yellow Urine Appearance Clear (Clear) Urine pH 6.0 (5.0-8.0) Ur Specific Hammett 1.028 (1.001-1.035) Urine Protein Negative (Negative) Urine Glucose (UA) Negative (Negative) Urine Ketones Negative (Negative) Urine Blood Negative (Negative) Urine Nitrite Negative (Negative) Urine Bilirubin Negative (Negative) Urine Urobilinogen <2.0 (<2.0) mg/dL Ur Leukocyte Esterase Negative (Negative) Urine HCG, Qual Not Detected (Not Detectd) 05/31/24 05/31/24 Range/Units 21:10 21:10 WBC (3.8-10.6) k/uL RBC (3.80-5.40) m/uL Hgb (11.4-16.0) gm/dL Hct (34.0-46.0) % MCV (80.0-100.0) fL MCH (25.0-35.0) pg MCHC (31.0-37.0) g/dL RDW (11.5-15.5) % Plt Count (150-450) k/uL MPV Neutrophils % % Lymphocytes % % Monocytes % % Eosinophils % % Basophils % % Neutrophils # (1.3-7.7) k/uL Lymphocytes # (1.0-4.8) k/uL Monocytes # (0-1.0) k/uL Eosinophils # (0-0.7) k/uL Basophils # (0-0.2) k/uL Sodium 138 (137-145) mmol/L Potassium 3.9 (3.5-5.1) mmol/L Chloride 104 (98-107) mmol/L Carbon Dioxide 22 (22-30) mmol/L Anion Gap 12 mmol/L BUN 18 H (7-17) mg/dL Creatinine 0.71 (0.52-1.04) mg/dL Est GFR (CKD-EPI)AfAm >90 (>60 ml/min/1.73 sqM) Est GFR (CKD-EPI)NonAf >90 (>60 ml/min/1.73 sqM) Glucose 93 (74-99) mg/dL Plasma Lactic Acid Tyler 0.8 (0.7-2.0) mmol/L Calcium 9.5 (8.4-10.2) mg/dL Total Bilirubin 0.4 (0.2-1.3) mg/dL AST 23 (14-36) U/L ALT 20 (4-34) U/L Alkaline Phosphatase 44 (38-126) U/L Total Protein 7.2 (6.3-8.2) g/dL Albumin 4.6 (3.5-5.0) g/dL TSH 2.100 (0.465-4.680) mIU/L Urine Color Urine Appearance (Clear) Urine pH (5.0-8.0) Ur Specific Hammett (1.001-1.035) Urine Protein (Negative) Urine Glucose (UA) (Negative) Urine Ketones (Negative) Urine Blood (Negative) Urine Nitrite (Negative) Urine Bilirubin (Negative) Urine Urobilinogen (<2.0) mg/dL Ur Leukocyte Esterase (Negative) Urine HCG, Qual (Not Detectd) Disposition Clinical Impression: Dehydration Disposition: HOME SELF-CARE Condition: Good Instructions (If sedation given, give patient instructions): Dehydration (ED) Is patient prescribed a controlled substance at d/c from ED?: No Referrals: Herminia Berkowitz PAC [Primary Care Provider] - 1-2 days
[2024-05-31 22:19] VITALS: BP 105/66; PULSE 72; RESP 18; TEMP 98.9
== END 2024-05-31 22:24 | disposition home or self-care (01) ==
LOC: EC 19:15
DX: E86.0 Dehydration (principal); F17.290 Nicotine dependence, other tobacco product, uncomplicated
CPT/HCPCS: 36415; 80053; 81003; 81025; 83605; 84443; 85025; 99284

== ENCOUNTER → 2024-07-11 | Outpatient (CLI) | payer OTHER ==
--- NOTE | 2024-07-11 16:49 | XR ---
EXAMINATION TYPE: XR shoulder complete RT DATE OF EXAM: 07/11/2024 4:40 PM INDICATION: Patient age:Female; 23 years old; Reason for study: S46.911A; pain COMPARISON: Chest radiograph 08/30/2023 TECHNIQUE: The right shoulder was examined in AP, internally rotated and scapular Y projections. . FINDINGS: No evidence of acute osseous pathology, joint dislocation, or soft tissue swelling. The remaining por tions of the visualized chest are unremarkable. IMPRESSION: No acute osseous pathology. [facility], , 07/11/2024 4:46 PM
== END | disposition home or self-care (01) ==
LOC: RADXRMAIN 16:13
PROVIDERS: ATTEND Emergency Medicine
DX: S46.911A Strain of unspecified muscle, fascia and tendon at shoulder and upper arm level, right arm, initial encounter (principal)